=== PATIENT | female | born 1935 | race Caucasian/White ===

== ENCOUNTER → 2017-07-11 10:57 | Outpatient (CLI) | payer MEDICARE, SELFPAY ==
[2017-07-11 12:40] LABS: BUN 14 mg/dL (7-18); EST Glomerular Filtration Rate 86 mL/min (>60); Est Glom Filt Rate - Afr Amer 104 mL/min (>60)
== END ==
PROVIDERS: Family Provider Family Medicine; PCP Family Medicine; Visit Provider Family Medicine
DX: Z01.812 Encounter for preprocedural laboratory examination (principal); R51 Headache
CPT/HCPCS: 36415; 82565; 84520

== ENCOUNTER → 2017-07-20 17:32 | Outpatient (CLI) | payer MEDICARE, SELFPAY ==
--- NOTE | 2017-07-20 17:39 | CT_ITS ---
STUDY: CTA OF THE BRAIN REASON FOR EXAM: Female, 82 years old. Occasional night headaches. Possible aneurysm. RADIATION DOSAGE (If Supplied By Facility): CTDIvol = ( 26.65 ) mGy, DLP = ( 1140.17 ) mGycm TECHNIQUE: CT angiography was performed with a multi-detector CT scanner. Data acquisition was obtained from the skull base through the vertex following intravenous administration of 100 ml of Isovue 370. MIP images were reconstructed from the axial data set. Post-processing of the angiographic images was performed, with multiplanar reformation and 3D reconstruction. Individualized dose optimization techniques were used for this CT. COMPARISON: None. FINDINGS: Normal bilateral petrous carotid arteries. Normal right cavernous carotid artery with a normal supraclinoid bifurcation. Normal left cavernous carotid artery with a normal supraclinoid bifurcation. Normal right A1 segments of the anterior cerebral artery. Normal left A1 segments of the anterior cerebral artery. Normal intact anterior communicating artery (ACOM). Normal bilateral A2 segments of the anterior cerebral arteries. Normal right M1 and M2 segments of the middle cerebral arteries, with a normal M1 bifurcation. Normal left M1 and M2 segments of the middle cerebral arteries, with a normal M1 bifurcation. The posterior commuting arteries bilaterally are definitely identified. There is a relatively small left vertebral artery with a dominant right vertebral artery. Normal basilar artery with a normal basilar bifurcation. The visualized bilateral superior cerebellar (SCA) arteries are normal. There is no demonstrated definite aneurysm of the little traverse of [place] within the scope and limitation of this exam. There is no demonstrated acute abnormality of the visualized brain. CT/CTA Head W/WO Contrast IMPRESSION: No demonstrated stenotic lesion. No demonstrated definite aneurysm of the little traverse of [place]. Electronically Signed: Kian Leonard MD at 3:35 EST Tel , Service support ,
== END ==
PROVIDERS: Family Provider Family Medicine; PCP Family Medicine; Visit Provider Family Medicine
DX: G44.209 Tension-type headache, unspecified, not intractable (principal)
CPT/HCPCS: 70496; Q9967

== ENCOUNTER → 2017-08-24 14:21 | Outpatient (CLI) | payer MEDICARE, SELFPAY ==
[2017-08-24 14:32] LABS: Bacteria 0 SEEN /hpf (None Seen); Mucous, Urine 0 SEEN /hpf (<or=2+); Red Blood Cells-Urine 0 SEEN /hpf (0-5); Squamous Epithelial Cells - UA 0 SEEN /hpf (5-10); White Blood Cells 0 SEEN /hpf (0-5)
[2017-08-24 15:56] LABS: Color, Urine Yellow (Yellow); Glucose, Dipstick Normal (Normal); Ketone-Dipstick Negative (Negative); Leukocyte Esterase-Dipstick Negative /ul (Negative); Nitrite-Dipstick Negative (Negative); Occult Blood-Urine Negative /ul (Negative); Protein-Dipstick Negative (Negative); Urine Bilirubin Dipstick Negative (Negative); Urine Clarity Clear (Clear); Urine Urobilinogen Normal (Normal); Urine pH 6.5 (5.0 - 8.0)
== END ==
PROVIDERS: Family Provider Family Medicine; PCP Family Medicine; Visit Provider Family Medicine
DX: R35.0 Frequency of micturition (principal)
CPT/HCPCS: 81001; 87086; 87088

== ENCOUNTER → 2018-08-22 09:15 | Outpatient (CLI) | payer MEDICARE, SELFPAY ==
[2018-08-22 12:51] LABS: Absolute Lymphocyte Count 0.95 X10^3/ul (0.83-4.51); Absolute Neutrophil Count 2.5 X10^3/uL (2.0-7.7); Basophil# 0.01 X10^3/uL; Basophil% 0.3 % (0-1); Eosinophil# 0.06 X10^3/uL; Eosinophils% 1.6 % (0-5); Hematocrit 41.5 % (37-47); Hemoglobin 13.7 g/dl (12.0-15.0); Lymphocyte # 0.95 X10^3/ul (4.0); Lymphocyte % 24.5 % (19-41); Mean Corpuscular Hgb 29.8 pg (27.0-32.0); Mean Corpuscular Volume 90.4 fL (81-99); Mean Platelet Vol. 11.8 fl (6.2-12.0); Monocyte# 0.34 X10^3/uL; Monocyte% 8.8 % (0-10); Neutrophil % 64.5 % (47-70); POSITIVE COUNT NO; POSITIVE DIFFERENTIAL NO; POSITIVE MORPHOLOGY NO; Platelet Count 164 K/mm3 (150-450); RBC Distribution Width CV 14.1 % (11.6-14.6); RBC Distribution Width SD 46.3 fl (35.1-43.9); Red Blood Count 4.59 M/mm3 (4.2-5.4); White Blood Count 3.9 K/mm3 (4.4-11.0)
[2018-08-22 13:05] LABS: ALB/GLOB Ratio 1.3 RATIO (0.9-2.4); AST(SGOT) 29 U/L (15-37); Alanine Aminotransfer ALT/SGPT 30 U/L (13-56); Albumin, Serum 3.9 g/dL (3.2-5.0); Alkaline Phosphatase 91 U/L (45-117); Anion Gap 6 (5-15); BUN 12 mg/dL (7-18); BUN/Creat Ratio 16.9 RATIO (10-20); Calcium,Total 8.7 mg/dL (8.5-10.1); Chloride 105 mmol/L (98-107); Creatinine, Serum 0.71 mg/dL (0.55-1.02); EST Glomerular Filtration Rate 83 mL/min (>60); Est Glom Filt Rate - Afr Amer 101 mL/min (>60); Globulin 2.9 g/dL (2.2-4.2); Glucose 82 mg/dL (74-106); Potassium 3.7 mmol/L (3.5-5.1); Protein, Total 6.8 g/dL (6.4-8.2); Sodium Level 138 mmol/L (136-145); T4 Free Direct 0.98 ng/dL (0.76-1.46); Thyroid Stim Hormone (TSH) 2.87 uIU/mL (0.358-3.74)
[2018-08-22 13:08] LABS: Vitamin D,25 Hydroxy 70.2 ng/mL (29.95-100.01)
== END ==
PROVIDERS: Family Provider Family Medicine; PCP Family Medicine; Visit Provider Family Medicine
DX: E03.9 Hypothyroidism, unspecified (principal); E55.9 Vitamin D deficiency, unspecified; E78.5 Hyperlipidemia, unspecified; K90.0 Celiac disease
CPT/HCPCS: 36415; 80053; 82306; 84439; 84443; 85025

== ENCOUNTER → 2018-10-23 09:08 | Outpatient (CLI) | payer MEDICARE, SELFPAY ==
--- NOTE | 2018-10-23 09:11 | RAD_ITS ---
STUDY: X-RAY - ESOPHAGUS (BARIUM SWALLOW) WITH FLUOROSCOPY REASON FOR EXAM: Female, 83 years old. Hiatal hernia and reflux. TECHNIQUE: 14 view(s) of the esophagus were obtained following swallowing of barium. FLUOROSCOPY TIME (if supplied): (0:45) minutes/seconds COMPARISON: None. FINDINGS: There is no demonstrated esophageal foreign body. There is circumferential narrowing of the distal esophagus at the gastroesophageal junction. Normal gastroesophageal junction, without a demonstrated hiatal hernia. The patient ingested a 12 mm tablet of barium without any difficulty. Normal visualized aortic arch and descending thoracic aorta. Normal visualized pulmonary parenchyma. There are diffuse degenerative changes of the visualized thoracic spine. RAD/Esophagus Only IMPRESSION: Circumferential narrowing of the distal esophagus. No reflux. The patient ingested a 12 mm tablet of barium without any difficulty. Electronically Signed: Gregory Sy, at 10:12 EDT , Service support ,
== END ==
PROVIDERS: Family Provider Family Medicine; PCP Family Medicine; Referring Provider Internal Medicine Gastroenterology; Visit Provider Internal Medicine Gastroenterology
DX: R13.10 Dysphagia, unspecified (principal)
CPT/HCPCS: 74220

== ENCOUNTER → 2019-01-28 09:33 | Outpatient (CLI) | payer MEDICARE, SELFPAY ==
--- NOTE | 2019-01-28 09:48 | RAD_ITS ---
HISTORY: HISTORY: pt. fell, pain right 5th digit, as well as base of thumb XR Hand Min 3 Views COMPARISON: None FINDINGS: # of images incl. paperwork: 3 3 views of the right hand. Findings: Interphalangeal joint spaces are narrowed with some osteophytes. Disease is more severe at the distal interphalangeal joints than proximally. Arthritis at the trapezium first metacarpal joint is most severe with sclerosis osteophytes and lateral subluxation. An ulnar styloid nonunion fracture is old. Calcification of the triangle fibrocartilage complex indicates chronic disease. RAD/Hand Min 3 Views IMPRESSION: Osteoarthritis. at 0553 Reported and signed by: Abhi Rangel MD Electronically Signed: Abhi Rangel MD at 5:52 EDT Tel , Service support ,
== END ==
PROVIDERS: Family Provider Family Medicine; PCP Family Medicine; Referring Provider Family Medicine; Visit Provider Family Medicine
DX: S60.221A Contusion of right hand, initial encounter (principal); M19.041 Primary osteoarthritis, right hand
CPT/HCPCS: 73130

== ENCOUNTER → 2019-04-05 11:16 | Outpatient (CLI) | payer MEDICARE, SELFPAY | PROVIDERS: Family Provider Family Medicine; PCP Family Medicine; Visit Provider Family Medicine | DX: R32 Unspecified urinary incontinence (principal) | CPT/HCPCS: 87077; 87086; 87088; 87186 ==

== ENCOUNTER 2019-11-14 14:44 | Emergency (ER) | payer MEDICARE, SELFPAY ==
[2019-11-14 14:45] VITALS: BP 152/128; PULSE 94; RESP 16; TEMP 36.3; O2SAT 97; BMI 21.2
--- NOTE | 2019-11-14 15:36 | CT_ITS ---
STUDY: CT ABDOMEN AND PELVIS WITHOUT CONTRAST REASON FOR EXAM: Female, 84 years old. RUQ PAIN AFTER FALL RADIATION DOSAGE (If Supplied By Facility): CTDIvol = ( 18.885 ) mGy, DLP = ( 331.79 ) mGycm TECHNIQUE: Transaxial images were obtained from the dome of the diaphragm to the symphysis pubis without oral contrast, and without intravenous contrast. Sagittal and coronal images were reconstructed. Individualized dose optimization techniques were used for this CT. COMPARISON: May 03, 2012 FINDINGS: There is minimal bibasilar atelectasis and/or scarring. There are coronary artery calcifications present. There are grossly stable scattered low attenuation foci within the liver which may reflect cysts and/or hemangiomas. The gallbladder is contracted. Normal spleen. Normal pancreas. Normal bilateral adrenal glands. Normal right kidney. Normal left kidney. Normal visualized stomach. Normal small intestine. There are multiple colonic diverticula consistent with diverticulosis. The appendix is visualized and appears normal. There is diffuse atherosclerotic calcification of the abdominal aorta, without a demonstrated aneurysm. Normal inferior vena cava. Normal retroperitoneum. Normal urinary bladder. There is a round calcified focus within the uterus consistent with a calcified fibroid. Normal abdominal wall. There are diffuse degenerative changes of the visualized thoracic and lumbar spine. There is an anterior compression deformity of T12 that is likely chronic. There is a dextroscoliosis of the thoracolumbar spine. There is a left hip arthroplasty in place creating beam hardening artifact within the pelvis. CT/Abdomen/Pelvis W IV Cont ONLY IMPRESSION: No acute intra-abdominal process. Colonic diverticulosis. Atherosclerosis. Electronically Signed: Jocelynn Cortes MD at 18:07 EDT Tel , Service support ,
[2019-11-14] MEDS: Ondansetron 4 MG/2 ML Vial IV (15:54)
[2019-11-14 16:05] VITALS: O2SAT 96
--- NOTE | 2019-11-14 16:05 | RAD_ITS ---
STUDY: X-RAY CHEST REASON FOR EXAM: Female, 84 years old. RIGHT SIDED RIB PAIN AFTER FALL, HX OF HTN TECHNIQUE: Single frontal view of the chest. COMPARISON: November 14, 2014 FINDINGS: There is no focal consolidation. Normal size heart. Normal mediastinum and brain. Normal visualized pulmonary arteries. There is atherosclerotic calcification of the aortic arch with tortuosity. Normal visualized thoracic spine. Normal visualized ribs, clavicles, and shoulders. There is no demonstrated abnormality of the visualized soft tissue structures of the upper abdomen. RAD/Chest 1 View (Portable) IMPRESSION: No acute cardiopulmonary process. Electronically Signed: Jocelynn Cortes MD at 17:07 EDT Tel , Service support ,
[2019-11-14 17:08] VITALS: BP 172/103; PULSE 83; RESP 16; O2SAT 99
[2019-11-14 17:23] LABS: Absolute Lymphocyte Count 0.77 X10^3/uL (0.83-4.51); Absolute Neutrophil Count 10.5 X10^3/uL (2.0-7.7); Basophil# 0.01 X10^3/uL; Basophil% 0.1 % (0-1); Hematocrit 46.1 % (37-47); Hemoglobin 15.6 g/dL (12.0-15.0); Lymphocyte # 0.77 X10^3/ul (4.0); Lymphocyte % 6.4 % (19-41); Mean Corp Hgb Conc 33.8 g/dL (32-36); Mean Corpuscular Hgb 30.5 pg (27.0-32.0); Mean Corpuscular Volume 90.2 fL (81-99); Mean Platelet Vol. 11.9 fl (6.2-12.0); Monocyte# 0.77 X10^3/uL; Monocyte% 6.4 % (0-10); NRBC Flagged by Analyzer 0 % (0-5); Neutrophil # 10.47 X10^3/uL (2.7-7.7); Neutrophil % 86.4 % (47-70); POSITIVE MORPHOLOGY YES; Platelet Count 218 K/mm3 (150-450); RBC Distribution Width CV 13.1 % (11.6-14.6); RBC Distribution Width SD 43.4 fl (35.1-43.9); Red Blood Count 5.11 M/mm3 (4.2-5.4); White Blood Count 12.1 K/mm3 (4.4-11.0)
[2019-11-14 17:31] LABS: ALB/GLOB Ratio 1.2 RATIO (0.9-2.4); AST(SGOT) 37 U/L (15-37); Alanine Aminotransfer ALT/SGPT 33 U/L (13-56); Albumin, Serum 4.7 g/dL (3.2-5.0); Alkaline Phosphatase 104 U/L (45-117); Anion Gap 12 (5-15); BUN 24 mg/dL (7-18); BUN/Creat Ratio 27.7 RATIO (10-20); Calcium,Total 9.6 mg/dL (8.5-10.1); Chloride 89 mmol/L (98-107); Creatinine, Serum 0.87 mg/dL (0.55-1.02); EST Glomerular Filtration Rate 66 mL/min (>60); Est Glom Filt Rate - Afr Amer 80 mL/min (>60); Estimated Creatinine Clearance 37.39 ml/min; Globulin 3.9 g/dL (2.2-4.2); Glucose 148 mg/dL (74-106); Potassium 3.2 mmol/L (3.5-5.1); Protein, Total 8.6 g/dL (6.4-8.2); Sodium Level 127 mmol/L (136-145)
[2019-11-14 17:35] LABS: Differential Indicated SCAN CRITERIA MET
[2019-11-14 18:03] LABS: Platelet Estimate ADEQUATE (ADEQ)
[2019-11-14 18:04] LABS: Anisocytosis RARE; Macrocytosis RARE; Red Cell Morphology N CHROM NORMAL (NORM C&C)
--- NOTE | 2019-11-14 18:10 | ED.DCSUM_ITS ---
- ER Visit Summary Date of Service: 11/14/19 Chief Complaint: Fall History of Present Illness: The patient is a [address] Rios Irwin. She reports that 2 days ago she lost her balance and fell into a window on her son terrie. She reports that she hit her right upper abdomen. She has pain here this 10 out of 10 with movement 7 out of 10 at rest. She does report the pain makes it is slightly short of breath. She was nauseated initially and vomited 3 times. There is no blood in her emesis. She has not vomited since then. Patient denies any blow to the head or loss of consciousness. She is not on anticoagulants. She denies any shoulder, wrist, or hip pain. Physical Examination: Vitals: Stable. Afebrile. Neck: No vertebral tenderness. Full ROM without difficulty. Cleared by NEXUS criteria. Back: No vertebral tenderness. General: A&O x 3. NAD. Cardiovascular exam: Regular rate and rhythm, no murmur, rub or gallop. Respiratory exam: Chest nontender. No crepitus. Clear to auscultation bilaterally. No wheezes or stridor. No pain with anterior posterior lateral compression of her chest. Abdominal exam: Soft, mild tenderness palpation in the right upper quadrant, nondistended, normal bowel sounds. No peritoneal signs. Extremity: Atraumatic. No pain with range of motion. Test Results: CBC shows a white count of 12.1 with a hemoglobin of 15.6, stable neutrophils 86, lymphocytes of 6. Chem-7 shows a sodium 127, potassium 3.2, c hloride of 89, BUN of 24, glucose 148. LFTs show total protein of 8.6. Clinical Impression(s) from Imaging Studies Abdomen/Pelvis CT 11/14/19 15:36 IMPRESSION: No acute intra-abdominal process. Colonic diverticulosis. Atherosclerosis. Electronically Signed: Jocelynn Cortes MD at 18:07 EDT Tel , Service support , Chest X-Ray 11/14/19 16:05 IMPRESSION: No acute cardiopulmonary process. Electronically Signed: Jocelynn Cortes MD at 17:07 EDT Tel , Service support , Emergency Department Course and Treatment: Patient refused pain or nausea medications. She is resting comfortably. Treatment Plan: I had a prolonged discussion the patient about her sodium being low and her potassium being low. She is instructed on dietary changes to improve this. She refused pain medications for home. She is instructed to follow-up with her primary care physician in 2 days for another exam. Return to the emergency department for any worsening symptoms. Disposition: To home in improved and stable condition. Impression: 1. Fall. 2. Blunt abdominal trauma. 3. Hyponatremia, mild. 4. Mild hypokalemia. This note was generated with [employer] dictation software. It may contain incorrect words, spelling, and punctuation that were not noted in review of the chart prior to signing ED Disposition - Plan for ED Patient: Disposition: Home or Assisted Living Instructions: ED Hyponatremia Referrals: Rios Irwin MD [Primary Care Provider] - 2 Days
[2019-11-14 18:18] VITALS: BP 189/112; PULSE 79; RESP 18; O2SAT 99
[2019-11-15 11:06] LABS: Pathologist Review Reviewed
== END 2019-11-14 18:19 | disposition home or self-care (01) ==
PROVIDERS: Emergency Provider Emergency Medicine; PCP Family Medicine
DX: S39.91XA Unspecified injury of abdomen, initial encounter (principal); E87.1 Hypo-osmolality and hyponatremia; E87.6 Hypokalemia; W19.XXXA Unspecified fall, initial encounter
CPT/HCPCS: 71045; 74177; 80053; 85025; 96374; 99284; Q9967; A4216; J2405

== ENCOUNTER 2019-11-16 09:17 | Observation (INO) | payer MEDICARE, SELFPAY ==
[2019-11-16] VITALS (11 sets, daily range): BP systolic 135–166; BP diastolic 87–109; PULSE 75–95; RESP 16–18; TEMP 36.6–37.2; O2SAT 92–96; BMI 21.4; BMI 20.3
--- NOTE | 2019-11-16 09:35 | EKG12_ITS ---
Test Reason : Blood Pressure : / mmHG Vent. Rate : 085 BPM Atrial Rate : 085 BPM P-R Int : 168 ms QRS Dur : 080 ms QT Int : 396 ms P-R-T Axes : 012 -57 -76 degrees QTc Int : 471 ms Sinus rhythm with marked sinus arrhythmia Left axis deviation Inferior infarct , age undetermined, cannot be excluded Anteroseptal infarct , age undetermined, cannot be excluded Nonspecific ST & & T Wave Abnormality Abnormal ECG Confirmed by KATHRINE BROWN, VON ([id number]), telegraph editor ЕЛЕНА GO ([id number]) on 11/19/2019 10:56:35 AM Referred By: MARK/AJAY Confirmed By:VON CHISHOLM MD
--- NOTE | 2019-11-16 09:41 | RAD_ITS ---
STUDY: X-RAY CHEST REASON FOR EXAM: Female, 84 years old. ill x 3 days TECHNIQUE: Frontal view COMPARISON: November 14, 2019 FINDINGS: The lungs are clear and expanded. There is no demonstrated pleural abnormality. Cardiomegaly. Normal mediastinum and brain. Normal visualized pulmonary arteries. Normal visualized aortic arch and descending thoracic aorta. Scoliosis of the thoracic spine. Normal visualized ribs, clavicles, and shoulders. RAD/Chest PA and Lateral IMPRESSION: Cardiomegaly. Electronically Signed: Shawn Bolanos DO at 11:17 EDT Tel [phone], Service support ,
--- NOTE | 2019-11-16 09:43 | ED.DCSUM_ITS ---
History of Present Illness Informant: Patient Onset: Days - 4 days Context: Gradual Onset Timing: Continuous Quality: Generalized weakness Location: Generalized Current Severity: Severe Maximum Severity: Severe Worsened by: Activity Relieved by: Nothing Associated Symptoms: Nausea and vomiting 2 days ago one episode Narrative: 84-year-old female history of CVA hyperlipidemia and hypothyroidism presents to the emergency department with generalized weakness. Patient was actually seen here 2 days ago. At that time she had suffered a fall a few days before that was complaining of right-sided rib pain and abdominal pain and she had a work-up in the emergency department that showed mild hyponatremia and hypokalemia but the patient felt well after evaluation was discharged. Patient states that she has been at home since that time but is still felt tired and just generally weak and has had much less energy than normal for her. She has had nausea but no vomiting since she has been here 2 days ago. No diarrhea or constipation. Normal urination. No chest pain shortness of breath. She has a mild cough that she attributes to allergies. No fevers headache or neck pain. She is not lightheaded or dizzy. No syncope or near syncope. No leg pain or swelling. She has had somewhat less of an appetite but is still been drinking fluids. Prior similar symptoms: Yes Recent Illness/Hospitalization: No <Eitan Sandoval - Last Filed: 11/16/19 11:48> <Iris Keating - Last Filed: 11/16/19 23:21> Chief Complaint: Weakness Past Medical History Prior records reviewed: Yes Past Medical History: - - CVA hyperlipidemia and hypothyroidism Surgical History: no surgical history Lives: With Family Smoking Status: Never smoker Alcohol: None Drugs: None - Family History Maternal Family History: Reports: No pertinent history Paternal Family History: Reports: No pertinent history <Eitan Sandoval - Last Filed: 11/16/19 11:48> <Iris Keating - Last Filed: 11/16/19 23:21> - Allergies and Home Meds Allergies/Adverse Reactions: Allergies gluten Adverse Reaction (Verified 11/16/19 09:19) Nausea Review of Systems All systems negative except as indicated General: Reports: Malaise. Denies: Chills, Fever, Sweats Eyes: Denies: Visual changes - bilaterally, Diplopia ENT: Denies: Rhinorrhea, Sore throat Cardiovascular: Denies: Chest pain, Palpitations Respiratory: Denies: Dyspnea, Cough, Dyspnea on exertion Gastrointestinal: Denies: Abdominal pain, Nausea, Vomiting, Diarrhea, Melena, Hematochezia Genitourinary: Denies: Dysuria, Hematuria, Frequency Musculoskeletal: Denies: Back pain, Extremity Pain Skin: Denies: Rash, Wounds Neurological: Denies: Headache, Weakness, Numbness Psych: Denies: Depression, Anxiety, Suicidal thoughts, Suicidal ideations <Myra Sandovalony - Last Filed: 11/16/19 11:48> Physical Exam Vital Signs/Narrative: Vital Signs Temp Pulse Resp BP Pulse Ox 11/16/19 09:19 97.8 F 78 18 135/97 H 96 Inital Vital Signs reviewed: Yes General: Well nourished, Well developed, No Acute Distress Head: Normocephalic, Atraumatic. Negative for: Trauma, Tenderness Eyes: Perrl, EOMI ENT: Moist mucous membranes, No rhinorrhea Neck: Supple, Nontender Cardiovascular: Regular rate, Regular rhythm, No murmurs Respiratory: No distress, CTA bilaterally, Chest nontender Abdomen: Soft, Nontender, Nondistended, Normal bowel sounds, - - No signs of trauma on the chest or abdomen flanks or on the back. Back: Nontender, Normal Inspection. Negative for: CVA tenderness, Spinal tenderness Extremities: Nontender, No edema. Negative for: Tenderness, Edema, Calf Tenderness Skin: Normal color, No rash Neurological: Alert, Oriented x3, Cranial nerves II-XII grossly intact, Normal Strength, Normal Sensation, Normal Gait Psychological: Normal affect, Normal Mood <Eitan Sandoval - Last Filed: 11/16/19 11:48> Diagnostic/Tx/Re-eval Chest X-Ray - ED: 2 View, Read by ED Physician, Read by Radiologist, No Acute Disease, Cardiomegaly - Rhythm Strip Rhythm Strip: Sinus Rhythm Rate: 85 Ectopy: None - EKG Initial EKG Interpretation: Sinus Rhythm, Inverted T-Waves, Non-Specific ST Changes Prior: Changed - Medical Decision Making On arrival vital signs are stable but EKG shows nonspecific ST changes and T wave inversions in the lateral leads which are changed from her EKG from November 142014. Laboratory work-up consistent with hyponatremia sodium 128, troponin was 0.02, rest of labs unremarkable. Chest x-ray unremarkable as well. Patient is hemodynamically stable. Patient chest pain-free. Patient has not had cardiac work-up in more than 5 years. She has new EKG changes. She is generally weak dehydrated and hyponatremic. Will admit for further treatment and work-up. <Eitan Sandoval - Last Filed: 11/16/19 11:48> - Medical Decision Making I have personally performed a face to face assessment of the patient and have reviewed the [facility] [employer]ER/PA note. My ivory findings include: 84 year old female presenting with generalized weakness and fatigue. Recently evaluated after fall. EKG shows lateral T wave inversion, changed from 2015. Chemistries remarkable for hyponatremia. She is chest pain free in the ED. Will admit for observation. <Iris Keating - Last Filed: 11/16/19 23:21> ED Disposition <Eitan Sandoval - Last Filed: 11/16/19 11:48> <Iris Keating - Last Filed: 11/16/19 23:21> - Plan for ED Patient: Disposition: Acute Care [facility] Diagnosis: Acute electrocardiogram changes, Dehydration, Hyponatremia, Troponin I above reference range
[2019-11-16] MEDS: 0.9% Normal Saline 1,000 ML 999 ML IV (09:49)
[2019-11-16 10:02] LABS: Absolute Lymphocyte Count 1.03 X10^3/uL (0.83-4.51); Absolute Neutrophil Count 7.7 X10^3/uL (2.0-7.7); Basophil# 0.01 X10^3/uL; Basophil% 0.1 % (0-1); Eosinophil# 0.01 X10^3/uL; Eosinophils% 0.1 % (0-5); Hematocrit 45.1 % (37-47); Hemoglobin 15.2 g/dL (12.0-15.0); Lymphocyte # 1.03 X10^3/ul (4.0); Lymphocyte % 10.4 % (19-41); Mean Corp Hgb Conc 33.7 g/dL (32-36); Mean Corpuscular Hgb 30.6 pg (27.0-32.0); Mean Corpuscular Volume 90.7 fL (81-99); Mean Platelet Vol. 10.7 fl (6.2-12.0); Monocyte# 0.96 X10^3/uL; Monocyte% 9.7 % (0-10); NRBC Flagged by Analyzer 0 % (0-5); Neutrophil # 7.74 X10^3/uL (2.7-7.7); Neutrophil % 78.6 % (47-70); Platelet Count 197 K/mm3 (150-450); RBC Distribution Width CV 13.2 % (11.6-14.6); RBC Distribution Width SD 43.4 fl (35.1-43.9); Red Blood Count 4.97 M/mm3 (4.2-5.4); White Blood Count 9.9 K/mm3 (4.4-11.0)
[2019-11-16 10:27] LABS: ALB/GLOB Ratio 1.1 RATIO (0.9-2.4); AST(SGOT) 53 U/L (15-37); Alanine Aminotransfer ALT/SGPT 43 U/L (13-56); Albumin, Serum 3.9 g/dL (3.2-5.0); Alkaline Phosphatase 93 U/L (45-117); Anion Gap 10 (5-15); BUN 21 mg/dL (7-18); BUN/Creat Ratio 23.9 RATIO (10-20); Calcium,Total 9.1 mg/dL (8.5-10.1); Chloride 89 mmol/L (98-107); Creatinine, Serum 0.88 mg/dL (0.55-1.02); EST Glomerular Filtration Rate 65 mL/min (>60); Est Glom Filt Rate - Afr Amer 79 mL/min (>60); Estimated Creatinine Clearance 35.27 ml/min; Globulin 3.6 g/dL (2.2-4.2); Glucose 112 mg/dL (74-106); Potassium 3.8 mmol/L (3.5-5.1); Protein, Total 7.5 g/dL (6.4-8.2); Sodium Level 128 mmol/L (136-145)
[2019-11-16 11:00] LABS: Mucous, Urine 0 SEEN /hpf (<or=2+); Red Blood Cells-Urine 0 SEEN /hpf (0-5); Squamous Epithelial Cells - UA 0 SEEN /hpf (5-10)
[2019-11-16 11:09] LABS: Color, Urine Yellow (Yellow); Glucose, Dipstick Normal (Normal); Ketone-Dipstick Negative (Negative); Leukocyte Esterase-Dipstick Negative /ul (Negative); Nitrite-Dipstick Negative (Negative); Occult Blood-Urine 25 /ul (Negative); Protein-Dipstick 100 mg/dl (Negative); Urine Bilirubin Dipstick Negative (Negative); Urine Clarity Clear (Clear); Urine Urobilinogen Normal (Normal); Urine pH 6.5 (5.0 - 8.0)
[2019-11-16 11:16] LABS: Bacteria 1+ /hpf (None Seen); White Blood Cells 0-5 SEEN /hpf (0-5)
--- NOTE | 2019-11-16 11:56 | HP.PCM_ITS ---
Problem List (1) Hypothyroidism Status: Chronic (2) Acute electrocardiogram changes Status: Acute (3) Hyponatremia Status: Acute (4) Hyperlipidemia Status: Chronic (5) Depression Status: Chronic History of Present Illness Date of Admission: 11/16/19 Chief Complaint: Weakness, dizziness, nausea. The patient is a 84 year old F with past medical history as mentioned above presented to the emergency room because of multiple complaints including dizziness, weakness and nausea. According to the patient, her symptoms has been going on for almost a week, mainly generalized weakness, associated with dizziness and difficulty ambulating as well as persistent nausea for the last 4 days with occasional vomiting and without other associated symptoms. She did mention that she has a very poor appetite and over the last several days, she has not been drinking or eating well. She complained of nausea that has been going on for 4 days, had vomiting for couple of times for 1 day but then remained early nausea without vomiting. She denied abdominal pain, fever, chills, diarrhea or constipation. She denied urinary symptoms. Today, she felt very weak and tired, dizzy and she was not able to get up. Her mentioned that she was walking and she just went down because she was very weak but she did not lose any consciousness. Patient denied chest pain, shortness of breath, or syncope. She denied cough or sputum production. She denied palpitation. Patient mentioned that she had a fall 2 weeks ago on the right side of her chest and she has been having chest pain on the right side since then which has been getting worse with taking a deep breath. In the emergency department, her blood pressure was slight elevated, other vital signs were stable. Her routine blood work was remarkable for hemoglobin of 15.2 g/dL indicating hemoconcentration and sodium of 128, BUN was 21 but her creatinine was normal. LFT was unremarkable. EKG revealed normal sinus rhythm, T wave inversion in leads V3, V4, V5 and V6 and those changes are new compared to EKG from October,, no evidence of acute ischemic changes. Troponin was 0.026. Chest x-ray revealed mild cardiomegaly, no acute findings. She is being admitted for hyponatremia likely due to dehydration, abnormal EKG and qu estionable near syncope. Past Medical History Past Medical History (Chronic Problems): Chronic Problems Hypothyroidism (Chronic) Hyperlipidemia (Chronic) Depression (Chronic) Allergies gluten Adverse Reaction (Verified 11/16/19 09:19) Nausea Home Medications: Ambulatory Orders Medication Instructions Recorded Clonazepam [Klonopin] 0.25 mg PO TID PRN PRN 11/14/14 Levothyroxine [Synthroid] 50 mcg PO DAILY 11/14/14 proMETHazine tablet [Phenergan 12.5 mg PO Q8H PRN PRN 11/14/14 tablet] Cholecalciferol (Vitamin D3) 5,000 unit PO DAILY 12/01/16 [Vitamin D3] Escitalopram Oxalate 20 mg PO DAILY 11/14/19 Surgical History: total hip arthroplasty Psychiatric History: Anxiety, Depression 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 Denies: Chills, Fever Eyes: Denies: Blurred vision, Double vision, Drainage, Vision Change HEENT: Denies: Difficulty Hearing, Ear Pain, Eye Pain, Nasal Congestion, Sore Throat Cardiovascular: Reports: Light Headedness. Denies: Chest Pain, Chest Pressure, Chest Tightness, Heaviness, Paroxysmal Noc. Dyspnea, Syncope Respiratory: Denies: Cough, Pleuritic Pain, Shortness of Breath, Sputum production, Wheezing Gastrointestinal: Reports: Nausea, Vomiting. Denies: Abdominal Pain, Constipation, Diarrhea Genitourinary: Denies: Dysuria, Frequency, Hematuria Musculoskeletal: Denies: Arm Pain, Back Pain, Foot Pain Skin: Denies: Dryness, Rash Neurological: Denies: Balance problems, Double vision, Change in Speech, Slurred speech, Confusion, Headaches, Incoordination Psychiatric: Reports: Anxiety, Depression Endocrine: Denies: Change in Body Habitus, Polydipsia, Polyuria VTE Information - Inpt Only VTE Present on Admission: No VTE Mechan Device Prophylaxis: None VTE Pharm Prophylaxis ordered?: Yes Patient Problems: Active and Suspected Problems Acute electrocardiogram changes (Acute) Hyponatremia (Acute) - Physical Exam Vitals/I&O's: Vital Signs Temp Pulse Resp BP Pulse Ox 98.1 F 78 16 142/87 H 95 11/16/19 11:17 11/16/19 11:17 11/16/19 11:17 11/16/19 11:17 11/16/19 11:17 Oxygen Delivery Method Room Air Weight: 113 lb 8.609 oz Body Mass Index (BMI) 21.4 Finger Stick Blood Glucose 115 Intake and Output for Last 24 Hours 11/14/19 11/15/19 11/16/19 23:59 23:59 23:59 Intake Total 1000 / 1000 Balance 1000 / 1000 General: Alert, Oriented x3, Cooperative, No apparent distress HEENT: Atraumatic, PERRLA, EOMI, Normocephalic Oral: Moist Mucosa, No Gingival or Mucosal Lesions/ Ulcerations Neck: Supple, No JVD, Negative Carotid Bruits, Trachea Midline, Thyroid Normal Size and Texture Lungs: Clear to auscultation, Normal air movement, No rhonchi, No wheeze, No rales, Diminished Cardiovascular: Regular rate, Regular Rhythm, Normal S1, Normal S2, PMI Normal Abdomen: Bowel Sounds Present, Soft, Non Tender, Non-Distended, No Hepato- splenomegaly Extremities: No clubbing, No cyanosis, No edema Skin: No rashes, No breakdown Lymphatic: No Cervical, Supraclavicular, or Inguinal Adenopathy Neurological: Cranial nerves II-XII grossly intact, Motor Exam 5/5 strength throughout Psych/Mental Status: Normal Affect, Appropriate, Alert and oriented to time, place, person, mood and affect Laboratory Results 11/16/19 09:50: WBC 9.9, RBC 4.97, Hgb 15.2 H, Hct 45.1, MCV 90.7, MCH 30.6, MCHC 33.7, RDW Std Deviation 43.4, RDW Coeff of Aida 13.2, Plt Count 197, MPV 10.7, Immature Gran % (Auto) 1.100 H, Neut % (Auto) 78.6 H, Lymph % (Auto) 10.4 L, [place] % (Auto) 9.7, Eos % (Auto) 0.1, Baso % (Auto) 0.1, Absolute Neuts (auto) 7.7, Absolute Lymphs (auto) 1.03, Nucleated RBC % 0 11/16/19 09:50: Sodium 128 L, Potassium 3.8, Chloride 89 L, Carbon Dioxide 29.0, Anion Gap 10, BUN 21 H, Creatinine 0.88, Estim Creat Clear Calc 35.27, Est GFR (MDRD) Af Amer 79, Est GFR (MDRD) Non-Af 65, BUN/Creatinine Ratio 23.9 H, Glucose 112 H, Calcium 9.1, Total Bilirubin 1.20 H, AST 53 H, ALT 43, Alkaline Phosphatase 93, Total Protein 7.5, Albumin 3.9, Globulin 3.6, Albumin/Globulin Ratio 1.1 11/16/19 09:50: Troponin I 0.026 11/16/19 10:50: Urine Color Yellow, Urine Clarity Clear, Urine pH 6.5, Ur Specific [place] 1.010, Urine Protein 100 H, Urine Glucose (UA) Normal, Urine Ketones Negative, Urine Occult Blood 25 H, Urine Nitrite Negative, Urine Bilirubin Negative, Urine Urobilinogen Normal, Ur Leukocyte Esterase Negative, Urine RBC 0 SEEN, Urine WBC 0-5 SEEN, Ur Squamous Epith Cells 0 SEEN, Urine Bacteria 1+, Urine Mucus 0 SEEN Clinical Impression(s) from Imaging Studies Chest X-Ray 11/16/19 09:41 IMPRESSION: Cardiomegaly. Electronically Signed: Shawn Bolanos DO at 11:17 EDT Tel [phone], Service support , Assessment/Plan All Active Problems Acute electrocardiogram changes (Acute) Hyponatremia (Acute) This is an 84 years old female patient presented to the emergency room because of weakness, dizziness, nausea and she was found to have hyponatremia and seemed to be due to dehydration, hypovolemic, also found to have EKG changes which is not clear if it is acute or chronic and she is being admitted for evaluation and treatment. #1 hyponatremia: Seems to be due to hypovolemic hyponatremia. Patient has a poor appetite, clinically dehydrated, she does have hemoconcentration. She is not on any medication that can cause hyponatremia. Plan: Admit to PCU observation, cardiac monitoring, IV fluids with normal saline, check urine sodium, urine chloride, urine creatinine, serum and plasma osmolality, TSH, repeat CBC and CMP tomorrow morning, x-ray of the right ribs to rule out rib fractures, orthostatic vitals tomorrow morning PT OT evaluation and treatment. #2 abnormal EKG: EKG reviewed, revealed T wave inversion in leads V3, V4, V5 and V6 and those are new changes compared to EKG from 2015, no EKG in between. Patient denied any chest pain. She has no cardiac history. Troponin is normal. Plan: Cardiac monitoring, serial cardiac enzymes, 2D echocardiogram, repeat EKG tomorrow morning. #3 questionable near syncopal episode: Likely due to vasovagal secondary to dehydration. Plan as above, IV fluids, monitoring, orthostatic vitals tomorrow morning. #4 hypothyroidism: We will check TSH, continue levothyroxine. #5 depression/anxiety: Stable, continue Klonopin and escitalopram. #6 hyperlipidemia: Currently not on statins. #7 DVT prophylaxis, subcu Lovenox. This note was generated with [employer] dictation software. It may contain incorrect words, spelling, and punctuation that were not noted in checking the note before signing. OBSV E&M: 80359 Initial observation care L3
--- NOTE | 2019-11-16 12:56 | RAD_ITS ---
HISTORY: Fall. Right lateral chest pain. 2 views of the lateral ribs. Findings: Shoulder arthritis. Scoliosis. Atherosclerotic plaque within the aorta. Pulmonary hypoexpansion. 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 Tortuosity descending thoracic aorta. Slight diminished bone mineral density. No pulmonary contusion. No pneumothorax. No displaced rib fracture perceived. RAD/Ribs Unil 2V No CXR IMPRESSION: No rib fracture. at 0209 Reported and signed by: Abhi Rangel MD Electronically Signed: Abhi Rangel MD at 2:08 EDT Tel , Service support ,
--- NOTE | 2019-11-16 12:56 | ECHOD_ITS ---
Reason For Study: ABNORMAL EKG Procedure This was a 2D Doppler, Color Flow transthoracic echocardiogram. Exam performed portable in patient room. Left Ventricle Normal LV size. Left ventricular systolic function is normal. The estimated ejection fraction is 65 %. Stage 1 diastolic dysfunction. No regional wall motion abnormalities noted. Right Ventricle Normal RV size. Normal systolic function. Atria Normal left atrium. Normal right atrium. Mitral Valve Mild mitral valve prolapse. Mild (1+) eccentric mitral valve insufficiency. Tricuspid Valve Mild (1+) tricuspid valve insufficiency. Pulmonary artery systolic pressure is 28 mmHg. Aortic Valve Trisinus/trileaflet aortic valve. Mild diffuse aortic valve thickening. Mild (1+) eccentric aortic valve insufficiency. Pericardium/Pleural No pericardial effusion. MMode/2D Measurements & Calculations LVIDd: 3.8 cm IVSd: 1.2 cm Ao root diam: 3.2 cm LVIDs: 2.4 cm LVPWd: 1.3 cm RVDd: 2.4 cm FS: 36.6 % LAV(MOD-bp): 41.5 ml SV(MOD-sp4): 35.7 ml LVAd ap4: 21.2 cm2 LAV(MOD-bp) Indexed: 28.7 ml/m2 EDV(MOD-sp4): 55.4 ml LAV(MOD-sp2): 53.5 ml EDV(sp4-el): 58.0 ml LAV(MOD-sp4): 31.1 ml LVAs ap4: 11.8 cm2 ESV(MOD-sp4): 19.7 ml ESV(sp4-el): 20.5 ml EF(MOD-sp4): 64.5 % EF(sp4-el): 64.6 % SV(sp4-el): 37.5 ml LA dimension(2D): 3.7 cm LA A4 area: 13.5 cm2 RA A4 area: 11.5 cm2 Time Measurements MV dec time: 0.19 sec Doppler Measurements & Calculations MV E max genaro: 48.6 cm/sec Lat Peak E' Genaro: 4.0 cm/sec Med Peak E' Genaro: 5.0 cm/sec MV A max genaro: 79.9 cm/sec E/E' lat: 12.2 E/E' med: 9.8 MV E/A: 0.61 Ao V2 max: 142.3 cm/sec AI max genaro: 384.7 cm/sec LV V1 max: 133.0 cm/sec Ao max P.1 mmHg AI max P.2 mmHg LV V1 max P.1 mmHg AI dec slope: 210.4 cm/sec2 AI P1/2t: 535.6 msec PA V2 max: 133.9 cm/sec TR max genaro: 244.9 cm/sec PI dec slope: 130.0 cm/sec2 TR max P.1 mmHg Interpretation Summary Normal LV size. Left ventricular systolic function is normal. The estimated ejection fraction is 65 %. Stage 1 diastolic dysfunction. Mild (1+) eccentric mitral valve insufficiency. Pulmonary artery systolic pressure is 28 mmHg. Mild (1+) eccentric aortic valve insufficiency. Mild mitral valve prolapse. Compared to prior study, there is no significant change. Ordering Physician: Jose Gaston Referring Physician: EVERARDO EISENBERG Performed By: Katia Joseph RDCS
[2019-11-16 13:41] LABS: Osmolality, Serum 270 mOsm/KG (280-301)
[2019-11-16 14:00] LABS: Magnesium 1.9 mg/dL (1.6-2.6); Thyroid Stim Hormone (TSH) 4.87 uIU/mL (0.358-3.74)
[2019-11-16] MEDS: 0.9% Normal Saline 1,000 ML 75 ML IV (14:04)
[2019-11-16] MEDS: Escitalopram Oxalate 20 MG Tablet PO (14:05)
[2019-11-16] MEDS: Acetaminophen 325 MG Tablet 650 MG PO ×2 (14:05→23:05)
[2019-11-16] MEDS: Enoxaparin 40 MG/0.4 ML Syringe 30 MG SC (14:08)
[2019-11-16] MEDS: clonazePAM 0.5 MG Tablet 0.25 MG PO (23:05)
[2019-11-17] VITALS (11 sets, daily range): BP systolic 139–160; BP diastolic 89–113; PULSE 73–91; RESP 14–16; TEMP 36.7–36.9; O2SAT 94–96
[2019-11-17 01:02] LABS: Urine Chloride 70 mmol/L (Not Establ.); Urine Sodium 66 mmol/L (Not Establ.)
[2019-11-17 03:07] LABS: Osmolality, Urine 299 mOsm/KG
[2019-11-17] MEDS: 0.9% Normal Saline 1,000 ML 75 ML IV (03:15)
--- NOTE | 2019-11-17 05:55 | EKG12_ITS ---
Test Reason : AM Blood Pressure : / mmHG Vent. Rate : 078 BPM Atrial Rate : 078 BPM P-R Int : 166 ms QRS Dur : 078 ms QT Int : 380 ms P-R-T Axes : 027 -62 -04 degrees QTc Int : 433 ms Sinus rhythm with Premature atrial complexes Left axis deviation Septal infarct , age undetermined Inferior infarct , age undetermined ST & T wave abnormality, consider anterolateral ischemia Abnormal ECG Confirmed by SHIN LUONG ([id number]), slot editor ЕЛЕНА GO ([id number]) on 11/21/2019 12:10:36 PM Referred By: MIRIAM Confirmed By:SHIN LUONG
[2019-11-17] MEDS: Levothyroxine 50 MCG Tablet PO (06:17)
[2019-11-17 06:39] LABS: Absolute Lymphocyte Count 0.88 X10^3/uL (0.83-4.51); Absolute Neutrophil Count 5.5 X10^3/uL (2.0-7.7); Basophil# 0.01 X10^3/uL; Basophil% 0.1 % (0-1); Hematocrit 42.5 % (37-47); Hemoglobin 14.3 g/dL (12.0-15.0); Lymphocyte # 0.88 X10^3/ul (4.0); Lymphocyte % 12.3 % (19-41); Mean Corp Hgb Conc 33.6 g/dL (32-36); Mean Corpuscular Hgb 30.4 pg (27.0-32.0); Mean Corpuscular Volume 90.2 fL (81-99); Mean Platelet Vol. 11.4 fl (6.2-12.0); Monocyte# 0.75 X10^3/uL; Monocyte% 10.5 % (0-10); NRBC Flagged by Analyzer 0 % (0-5); Neutrophil # 5.47 X10^3/uL (2.7-7.7); Neutrophil % 76.3 % (47-70); Platelet Count 179 K/mm3 (150-450); RBC Distribution Width CV 13.1 % (11.6-14.6); RBC Distribution Width SD 42.6 fl (35.1-43.9); Red Blood Count 4.71 M/mm3 (4.2-5.4); White Blood Count 7.2 K/mm3 (4.4-11.0)
[2019-11-17 06:55] LABS: ALB/GLOB Ratio 1.1 RATIO (0.9-2.4); AST(SGOT) 32 U/L (15-37); Alanine Aminotransfer ALT/SGPT 39 U/L (13-56); Albumin, Serum 3.4 g/dL (3.2-5.0); Alkaline Phosphatase 85 U/L (45-117); Anion Gap 6 (5-15); BUN 10 mg/dL (7-18); BUN/Creat Ratio 22.7 RATIO (10-20); Calcium,Total 8.1 mg/dL (8.5-10.1); Chloride 98 mmol/L (98-107); Creatinine, Serum 0.44 mg/dL (0.55-1.02); EST Glomerular Filtration Rate 144 mL/min (>60); Est Glom Filt Rate - Afr Amer 174 mL/min (>60); Estimated Creatinine Clearance 31.04 ml/min; Globulin 3.1 g/dL (2.2-4.2); Glucose 92 mg/dL (74-106); Potassium 2.9 mmol/L (3.5-5.1); Protein, Total 6.5 g/dL (6.4-8.2); Sodium Level 130 mmol/L (136-145)
[2019-11-17 07:45] LABS: Free T3 1.8 pg/mL (2.18-3.98); T4 Free Direct 1.12 ng/dL (0.76-1.46)
[2019-11-17] MEDS: Escitalopram Oxalate 20 MG Tablet PO (08:01)
[2019-11-17] MEDS: Enoxaparin 40 MG/0.4 ML Syringe 30 MG SC (08:04)
--- NOTE | 2019-11-17 09:06 | PN_ITS ---
Patient Problems: Active and Suspected Problems Acute electrocardiogram changes (Acute) Hyponatremia (Acute) Subjective: Chief complaint: Follow-up after admission for hyponatremia, abnormal EKG and questionable near syncopal episode as well as elevated blood pressure. Patient seen and examined. No acute events overnight. This morning, she is feeling better, weakness improved. Nausea improved as well. She denied any more dizziness or lightheadedness. She denied chest pain or shortness of breath. Her blood pressure has been elevated, systolic up to 160s. Other vital signs are stable. - Physical Exam Vitals/I&O's: Vital Signs Temp Pulse Resp BP Pulse Ox 98.3 F 77 14 160/113 H 94 11/17/19 03:17 11/17/19 06:47 11/17/19 03:17 11/17/19 06:03 11/17/19 07:09 Oxygen Delivery Method Room Air Weight: 107 lb 4.8 oz Body Mass Index (BMI) 21.4 Finger Stick Blood Glucose 115 Orthostatic Vital Signs Start: 11/17/19 06:03 Freq: q24h Status: Active Protocol: Activity Type Activity Date Activity User E-Sign Co-Sign Detail Recorded Client Recorded Date Recorded By Document 11/17/19 06:03 AE [id number] 11/17/19 06:16 AE 11/17/19 06:03 Orthostatic Vitals Standing -Extremity Use Right Arm Sitting -Blood Pressure (90/60-120/80) 159/112 H -Extremity Use Right Arm -Pulse Rate (60-100) 80 Lying -Blood Pressure (90/60-120/80) 160/113 H -Extremity Use Right Arm -Pulse Rate (60-100) 73 Intake and Output for Last 24 Hours 11/15/19 11/16/19 11/17/19 23:59 23:59 23:59 Intake Total 1743.75 / 1743.75 545 / 545 Output Total 300 / 300 Balance 1443.75 / 1443.75 545 / 545 General: Alert, Oriented x3, Cooperative, No apparent distress HEENT: Atraumatic, PERRLA, EOMI, Normocephalic Oral: Moist Mucosa, No Gingival or Mucosal Lesions/ Ulcerations Neck: Supple, No JVD, Negative Carotid Bruits, Trachea Midline, Thyroid Normal Size and Texture Lungs: Clear to auscultation, Normal air movement, No rhonchi, No wheeze, No rales, Diminished Cardiovascular: Regular rate, Regular Rhythm, Normal S1, Normal S2, PMI Normal Abdomen: Bowel Sounds Present, Soft, Non Tender, Non-Distended, No Hepato- splenomegaly Extremities: No clubbing, No cyanosis, No edema Skin: No rashes, No breakdown Lymphatic: No Cervical, Supraclavicular, or Inguinal Adenopathy Neurological: Cranial nerves II-XII grossly intact, Neuro grossly intact Psych/Mental Status: Normal Affect, Appropriate, Alert and oriented to time, place, person, mood and affect Laboratory Results 11/16/19 09:50: WBC 9.9, RBC 4.97, Hgb 15.2 H, Hct 45.1, MCV 90.7, MCH 30.6, MCHC 33.7, RDW Std Deviation 43.4, RDW Coeff of Aida 13.2, Plt Count 197, MPV 10.7, Immature Gran % (Auto) 1.100 H, Neut % (Auto) 78.6 H, Lymph % (Auto) 10.4 L, [place] % (Auto) 9.7, Eos % (Auto) 0.1, Baso % (Auto) 0.1, Absolute Neuts (auto) 7.7, Absolute Lymphs (auto) 1.03, Nucleated RBC % 0 11/16/19 09:50: Sodium 128 L, Potassium 3.8, Chloride 89 L, Carbon Dioxide 29.0, Anion Gap 10, BUN 21 H, Creatinine 0.88, Estim Creat Clear Calc 35.27, Est GFR (MDRD) Af Amer 79, Est GFR (MDRD) Non-Af 65, BUN/Creatinine Ratio 23.9 H, Glucos e 112 H, Calcium 9.1, Total Bilirubin 1.20 H, AST 53 H, ALT 43, Alkaline Phosphatase 93, Total Protein 7.5, Albumin 3.9, Globulin 3.6, Albumin/Globulin Ratio 1.1 11/16/19 09:50: Troponin I 0.026 11/16/19 09:50: Magnesium 1.9, TSH 4.87 H 11/16/19 10:50: Urine Color Yellow, Urine Clarity Clear, Urine pH 6.5, Ur Specific [place] 1.010, Urine Protein 100 H, Urine Glucose (UA) Normal, Urine Ketones Negative, Urine Occult Blood 25 H, Urine Nitrite Negative, Urine Bilirubin Negative, Urine Urobilinogen Normal, Ur Leukocyte Esterase Negative, Urine RBC 0 SEEN, Urine WBC 0-5 SEEN, Ur Squamous Epith Cells 0 SEEN, Urine Bacteria 1+, Urine Mucus 0 SEEN 11/16/19 13:23: Serum Osmolality 270 L 11/16/19 13:23: Troponin I 0.029 11/16/19 16:02: Troponin I 0.025 11/16/19 23:30: Urine Osmolality 299 11/16/19 23:30: Ur Random Sodium 66, Urine Creatinine 25.80, Urine Chloride 70 11/17/19 05:10: WBC 7.2, RBC 4.71, Hgb 14.3, Hct 42.5, MCV 90.2, MCH 30.4, MCHC 33.6, RDW Std Deviation 42.6, RDW Coeff of Aida 13.1, Plt Count 179, MPV 11.4, Immature Gran % (Auto) 0.800, Neut % (Auto) 76.3 H, Lymph % (Auto) 12.3 L, [place] % (Auto) 10.5 H, Eos % (Auto) 0.0, Baso % (Auto) 0.1, Absolute Neuts (auto) 5.5, Absolute Lymphs (auto) 0.88, Nucleated RBC % 0 11/17/19 05:10: Sodium 130 L, Potassium 2.9 L, Chloride 98, Carbon Dioxide 26.0, Anion Gap 6, BUN 10, Creatinine 0.44 L, Estim Creat Clear Calc 31.04, Est GFR (MDRD) Af Amer 174, Est GFR (MDRD) Non-Af 144, BUN/Creatinine Ratio 22.7 H, Glucose 92, Calcium 8.1 L, Total Bilirubin 0.90, AST 32, ALT 39, Alkaline Phosphatase 85, Total Protein 6.5, Albumin 3.4, Globulin 3.1, Albumin/Globulin Ratio 1.1 11/17/19 06:30: Free T4 1.12, Thyroxine (T4) 9.0, Free T3 pg/dL 1.8 L 11/17/19 08:00: Cortisol Pending 11/17/19 08:00: Renin Pending, Aldosterone Pending Current Medications Acetaminophen (Tylenol) 650 mg PO Q6H PRN PRN PRN Reason: Pain Score 1-10/Temp > 100.7 F Last Admin: 11/16/19 23:05 Dose: 650 mg Documented by: Amlodipine Besylate (Norvasc) 5 mg PO DAILY [facility] Clonazepam (Klonopin) 0.25 mg PO TID PRN PRN PRN Reason: SLEEP Last Admin: 11/16/19 23:05 Dose: 0.25 mg Documented by: Enoxaparin Sodium (Lovenox) 30 mg SC DAILY [facility] Last Admin: 11/17/19 08:04 Dose: 30 mg Documented by: Escitalopram Oxalate (Lexapro) 20 mg PO DAILY [facility] Last Admin: 11/17/19 08:01 Dose: 20 mg Documented by: Hydralazine HCl (Apresoline Iv) 10 mg IV Q8H PRN PRN PRN Reason: for SBP>160 Levothyroxine Sodium (Synthroid) 50 mcg PO DAILY@0600 [facility] Last Admin: 11/17/19 06:17 Dose: 50 mcg Documented by: Ondansetron HCl (Zofran) 4 mg IV Q8H PRN PRN PRN Reason: NAUSEA/VOMITING Oxycodone HCl (Oxyir) 5 mg PO Q6H PRN PRN PRN Reason: Pain Score 6-10/10 Senna/Docusate Sodium (Senokot-S, Kelly-Colace) 2 tablet PO BID PRN PRN PRN Reason: Constipation Sodium Chloride () 10 - 40 ml IV UD PRN PRN Reason: SALINE FLUSH Zolpidem Tartrate (Ambien (Generic)) 5 mg PO QHS PRN PRN PRN Reason: INSOMNIA Medical Necessity - Tobacco Use Smoking Status: Never smoker Assessment/Plan All Active Problems Acute electrocardiogram changes (Acute) Hyponatremia (Acute) This is an 84 years old female patient presented to the emergency room because of weakness, dizziness, nausea and she was found to have hyponatremia and seemed to be due to dehydration, hypovolemic, also found to have EKG changes which is not clear if it is acute or chronic and she is being admitted for evaluation and treatment. #1 hyponatremia: Seems to be hypovolemic hyponatremia. Urine sodium and urine osmolality are highly elevated. she is on IV fluids with normal saline. Today sodium is 130, improving. Potassium also coming down at 2.9. TSH was slightly elevated, but free T4 and total T4 are normal. Free T3 slightly low. Blood pressure has been elevated. Plan: Discontinue IV fluids, replace potassium, start Norvasc for elevated blood pressure, anticipate discharge home tomorrow after 2D echocardiogram. #2 abnormal EKG: Repeat EKG from today revealed persistent T wave inversion in leads V3, V4, V5 as well as V6. Troponin is negative x3. Patient denied any chest pain. As mentioned above blood pressure is elevated. Echocardiogram was not done yesterday. Plan for echocardiogram tomorrow morning. #3 elevated blood pressure: Systolic blood has been persistently above 150, goes up to 165. Today's potassium is 2.9 which may raise concern for secondary hypertension including hyperaldosteronism although it is rare. Plan: Check serum aldosterone, renin, serum cortisol, start Norvasc for elevated blood pressure, IV hydralazine PRN. Completion of the work-up for this hypertension can be done as outpatient and patient can be discharged once the echocardiogram obtained and is okay. #4 questionable near syncopal episode: Likely due to vasovagal secondary to dehydration. Today, her orthostatic vitals reviewed, blood pressure has been elevated, but pressure did not drop down significantly upon standing. #5 hypothyroidism: TSH slightly elevated. Both free and total T4 are normal, free T3 slightly low. Plan to continue same treatment, patient may need repeat TSH in 2 to 4 weeks which can be done as outpatient. #6 depression/anxiety: Stable, continue Klonopin and escitalopram. #7 hyperlipidemia: Currently not on statins. #8 DVT prophylaxis, subcu Lovenox. This note was generated with [employer] dictation software. It may contain incorrect words, spelling, and punctuation that were not noted in checking the note before signing. OBSV E&M: 98103 Subsequent observation care L2
[2019-11-17] MEDS: amLODIPine 5 MG Tablet PO (09:26)
[2019-11-18] VITALS (7 sets, daily range): BP systolic 91–173; BP diastolic 71–114; PULSE 70–94; RESP 18; TEMP 36.9–37; O2SAT 95–97
[2019-11-18] MEDS: Levothyroxine 50 MCG Tablet PO (05:10)
[2019-11-18 06:21] LABS: Potassium 3.5 mmol/L (3.5-5.1); Sodium Level 131 mmol/L (136-145)
[2019-11-18] MEDS: Acetaminophen 325 MG Tablet 650 MG PO (08:03)
[2019-11-18] MEDS: amLODIPine 5 MG Tablet PO (09:27)
[2019-11-18] MEDS: Enoxaparin 40 MG/0.4 ML Syringe 30 MG SC (09:27)
--- NOTE | 2019-11-18 10:13 | NURSING ---
This RN updated the pt's son, Anthony via phone.
[2019-11-18] MEDS: Escitalopram Oxalate 20 MG Tablet PO (10:15)
--- NOTE | 2019-11-18 11:10 | EKG12_ITS ---
Test Reason : EKG CHANGES Blood Pressure : / mmHG Vent. Rate : 085 BPM Atrial Rate : 085 BPM P-R Int : 162 ms QRS Dur : 074 ms QT Int : 364 ms P-R-T Axes : 006 -60 -56 degrees QTc Int : 433 ms Normal sinus rhythm Left axis deviation Inferior infarct , age undetermined Anteroseptal infarct , age undetermined ST & T wave abnormality, consider lateral ischemia Abnormal ECG When compared with ECG of 17-NOV-2019 05:34, MANUAL COMPARISON REQUIRED, DATA IS UNCONFIRMED Confirmed by SHIN LUONG ([id number]), editorial cartoonist ЕЛЕНА GO ([id number]) on 11/21/2019 12:12:50 PM Referred By: JIL Confirmed By:SHIN LUONG
--- NOTE | 2019-11-18 11:26 | DCINST_ITS ---
- Discharge Diagnoses Current Active Problems: Current Active and Chronic Problems Hypothyroidism (Chronic) Acute electrocardiogram changes (Acute) Hyponatremia (Acute) You will use the following diet at home:: Cardiac Your food should be the consistency of: Regular Your liquids should be the consistency of: Regular/Thin - 1-2 w Discharge Activity: Return to Normal Activity Additional Instructions: Wear GERSON hoses every day during the day. Allergies/Adverse Reactions: Allergies gluten Adverse Reaction (Verified 11/16/19 09:19) Nausea Medications to take at Discharge Clonazepam [Klonopin] 0.25 mg PO TID PRN PRN 11/14/14 Levothyroxine [Synthroid] 50 mcg PO DAILY 11/14/14 proMETHazine tablet [Phenergan tablet] 12.5 mg PO Q8H PRN PRN 11/14/14 Cholecalciferol (Vitamin D3) [Vitamin D3] 5,000 unit PO DAILY 12/01/16 Escitalopram Oxalate 20 mg PO DAILY 11/14/19 Amlodipine [Norvasc] 5 mg PO DAILY #30 tab 11/18/19 The following prescriptions were given: Amlodipine [Norvasc] 5 mg PO DAILY #30 tab Transmission Status: Pending to [facility] [employer] #30 Primary Care Physician: Rios Irwin MD [Primary Care Provider] - Please follow up with your Primary Care Physician in: 1-2 weeks Test Results: Test results from this visit will be discussed in further detail at your follow- up appointment, if applicable. Proposed Discharge Date: 11/18/19
--- NOTE | 2019-11-18 11:54 | CASEMGMT ---
Addendum entered by Ioana Tillman 11/18/19 12:46: Shelli from [facility] states she will being WW over to pt shortly prior to discharge. Denise SYLVESTER updated and aware. Tommy SYLVESTER CM Original Note: This RN CM to room with BAPTISTE form at this time, explanation done-pt voices understanding, and signed BAPTISTE form at this time. Original to chart and copy to pt at this time. Therapy is recommending WW for pt at this time and [facility]. Pt is agreeable to [facility] and script faxed to [facility] at this time. Pt voices no further questions/concerns/needs at this time. Tommy SYLVESTER CM
--- NOTE | 2019-11-18 14:27 | DS.PCM_ITS ---
<Jamison Bess - Last Filed: 11/18/19 14:27> Discharge Date and Diagnosis Date of Admission: 11/16/19 Date of Discharge: 11/18/19 - Primary Discharge Diagnosis Acute Problems: Near syncope Uncontrolled HTN Abnormal EKG Orthostatic hypotension Hyponatremia HLD Depression Hypothyroidism - Secondary Discharge Diagnosis Chronic Problems: Chronic Problems Hypothyroidism (Chronic) Hyperlipidemia (Chronic) Depression (Chronic) Hospital Course and Treatment Imaging Results: RAD/Chest PA and Lateral IMPRESSION: Cardiomegaly. Echo: Interpretation Summary Normal LV size. Left ventricular systolic function is normal. The estimated ejection fraction is 65 %. Stage 1 diastolic dysfunction. Mild (1+) eccentric mitral valve insufficiency. Pulmonary artery systolic pressure is 28 mmHg. Mild (1+) eccentric aortic valve insufficiency. Mild mitral valve prolapse. Compared to prior study, there is no significant change. RAD/Ribs Unil 2V No CXR IMPRESSION: No rib fracture. Operations: None Procedures: 2-D Echocardiogram Summary of Care Provided: Hospital Course: The patient is a 84 year old F with past medical history as above who presented to the emergency room with weakness, dizziness, nauseousness. This is been occurring for approximately a week and she had dizziness when ambulating, for occasions vomited. She had not been drinking or eating well. She never fully lost consciousness. She did have a fall and struck the right side of her chest against a window and had some ongoing right-sided chest pain. In the emergency room she had some nonspecific EKG changes with T wave inversion in V3, 4, 5, 6 compared to her last EKG from October 2014. She had negative troponin. Chest x-ray showed mild cardiomegaly. She had hyponatremia on BMP with a mildly elevated BUN. She was felt to have dehydration secondary to poor p.o. intake, nausea and vomiting, with associated hyponatremia. She had markedly positive orthostatic vitals. Blood pressure lying down was 173/114 declining to 150/99 when sitting, declining further to 113/72 on standing. With her marked resting hypertension she was started on Norvasc with good response. She was given GERSON hoses for orthostatic hypotension and advised on using additional care when changing position. With her nonspecific EKG changes we obtained an echocardiogram which was unremarkable, results as above. She had no symptoms of chest pain, shortness of breath, tightness or other concerning features for ischemia. Additionally, brain and elbow and aldosterone levels were obtained but are pending at this time. TSH was mildly elevated however appropriate for her age, T4 was normal, T3 was slightly low at 1.8. Cortisol level was normal. Her condition is also complicated by hyponatremia, which did mildly improve with IV hydration while here. She does take an SSRI which likely is contributing to some of her hyponatremia, and with her ongoing dizziness her home Klonopin may be part of the issue, however it would be inappropriate to discontinue these medications in this setting. She will need close follow-up with her PCP in 1 to 2 weeks. I have also advised her to follow-up with cardiology for further testing given her ongoing orthostatic hypotension and unexplained nonspecific EKG changes-I recommended follow-up with Dr. Chilel in 2 to 4 weeks. The patient was discharged home in stable condition. This patient was seen by Jamison Bess PA-C under the supervision of Doctor Beth.[]. - Physical Exam Vitals/I&O's: Vital Signs Temp Pulse Resp BP Pulse Ox 98.6 F 84 18 135/82 H 96 11/18/19 09:23 11/18/19 11:58 11/18/19 09:23 11/18/19 11:58 11/18/19 09:23 Oxygen Delivery Method Room Air Weight: 107 lb 4.784 oz Body Mass Index (BMI) 21.4 Finger Stick Blood Glucose 115 Orthostatic Vital Signs Start: 11/17/19 06:03 Freq: q24h Status: Active Protocol: Activity Type Activity Date Activity User E-Sign Co-Sign Detail Recorded Client Recorded Date Recorded By Document 11/18/19 11:58 SC [id number] 11/18/19 12:02 SC 11/18/19 11:58 Orthostatic Vitals Standing -Blood Pressure (90/60-120/80) 91/71 -Extremity Use Left Arm -Pulse Rate (60-100) 91 Sitting -Blood Pressure (90/60-120/80) 127/80 H -Extremity Use Left Arm -Pulse Rate (60-100) 91 Lying -Blood Pressure (90/60-120/80) 135/82 H -Extremity Use Left Arm -Pulse Rate (60-100) 84 Intake and Output for Last 24 Hours 06/11/17/19 11/18/19 23:59 23:59 23:59 Intake Total 1743.75 / 1743.75 2565 / 2565 450 / 450 Output Total 300 / 300 Balance 1443.75 / 1443.75 2565 / 2565 450 / 450 General: Alert, Oriented x3, Cooperative HEENT: Atraumatic, PERRLA, EOMI, Normocephalic Neck: Supple, No JVD, Negative Carotid Bruits Lungs: Clear to auscultation, Normal air movement Cardiovascular: Regular rate, No murmurs Abdomen: Bowel Sounds Present, Soft, Non Tender Extremities: No edema, Capillary Refill Less than 3 Seconds Skin: No rashes, No breakdown Musculoskeletal: No Tenderness to Palpation of Joints or Extremities Neurological: Cranial nerves II-XII grossly intact Psych/Mental Status: Normal Affect, Appropriate, Alert and oriented to time, place, person, mood and affect Laboratory Results 11/17/19 08:00: Cortisol 21.40 11/18/19 05:35: Sodium 131 L, Potassium 3.5 Discharge Diet: Low fat/ Low Cholesterol Discharge Activity: Return to Normal Activity Home Medications: Medications to take at Discharge Clonazepam [Klonopin] 0.25 mg PO TID PRN PRN 11/14/14 Levothyroxine [Synthroid] 50 mcg PO DAILY 11/14/14 proMETHazine tablet [Phenergan tablet] 12.5 mg PO Q8H PRN PRN 11/14/14 Cholecalciferol (Vitamin D3) [Vitamin D3] 5,000 unit PO DAILY 12/01/16 Escitalopram Oxalate 20 mg PO DAILY 11/14/19 Amlodipine [Norvasc] 5 mg PO DAILY #30 tab 11/18/19 Following Prescrptions Were Given to Patient: Amlodipine [Norvasc] 5 mg PO DAILY #30 tab Transmission Status: Received by [email or web address][email or web address] Primary Care Physician: Rios Irwin MD [Primary Care Provider] - Please follow up with your Primary Care Physician in: 1-2 weeks Please Follow Up With: Tye Chilel MD When: 2-4 weeks Disposition: Home Minutes spent on discharge:: 35 Patient Condition:: Stable Medical Necessity - Tobacco Use Smoking Status: Never smoker Meaningful Use Info Meaningful Use Diagnoses (Choose all that apply): None applicable <Kp Campos - Last Filed: 11/18/19 14:57> Discharge Date and Diagnosis - Secondary Discharge Diagnosis Chronic Problems: Chronic Problems Hypothyroidism (Chronic) Hyperlipidemia (Chronic) Depression (Chronic) Hospital Course and Treatment Summary of Care Provided: This patient was seen in conjunction with Jamison Bess PA-C . I have independently interviewed and examined the patient and reviewed pertinent historical, laboratory, and other data. Please refer to Jamison Bess PA-C note for details of this patient's presentation, findings, and recommendations. I have reviewed Jamison Bess PA-C note and concur with documented findings. In brief, patient is 84-year-old lady admitted with presyncopal episode. Patient was admitted to monitored bed for subsequent management. She was found to be orthostatic. Adjustments were made to her medication regimen Hospital course: As documented above - Physical Exam Vitals/I&O's: Vital Signs Temp Pulse Resp BP Pulse Ox 98.6 F 84 18 135/82 H 96 11/18/19 09:23 11/18/19 11:58 11/18/19 09:23 11/18/19 11:58 11/18/19 09:23 Oxygen Delivery Method Room Air Weight: 48.67 kg Body Mass Index (BMI) 21.4 Finger Stick Blood Glucose 115 Orthostatic Vital Signs Start: 11/17/19 06:03 Freq: q24h Status: Active Protocol: Activity Type Activity Date Activity User E-Sign Co-Sign Detail Recorded Client Recorded Date Recorded By Document 11/18/19 11:58 SC [id number] 11/18/19 12:02 SC 11/18/19 11:58 Orthostatic Vitals Standing -Blood Pressure (90/60-120/80) 91/71 -Extremity Use Left Arm -Pulse Rate (60-100) 91 Sitting -Blood Pressure (90/60-120/80) 127/80 H -Extremity Use Left Arm -Pulse Rate (60-100) 91 Lying -Blood Pressure (90/60-120/80) 135/82 H -Extremity Use Left Arm -Pulse Rate (60-100) 84 Intake and Output for Last 24 Hours 11/16/19 11/17/19 11/18/19 23:59 23:59 23:59 Intake Total 1743.75 / 1743.75 2565 / 2565 450 / 450 Output Total 300 / 300 Balance 1443.75 / 1443.75 2565 / 2565 450 / 450 Laboratory Results 11/17/19 08:00: Cortisol 21.40 11/18/19 05:35: Sodium 131 L, Potassium 3.5
[2020-08-06 11:31] LABS: Aldosterone, Serum < 1.0 ng/dL (0.0-30.0); Renin, Plasma 0.357 ng/mL/hr (0.167-5.380)
== END 2019-11-18 11:27 | disposition home or self-care (01) ==
LOC: ED 11:51 → PCU 12:22
PROVIDERS: Admitting Provider Hospitalist; Emergency Provider Physician Assistant Medical; PCP Family Medicine; Visit Provider Internal Medicine
DX: I95.1 Orthostatic hypotension (principal); I10 Essential (primary) hypertension; E78.5 Hyperlipidemia, unspecified; E03.9 Hypothyroidism, unspecified; F32.9 Major depressive disorder, single episode, unspecified; R94.31 Abnormal electrocardiogram [ECG] [EKG]; E87.1 Hypo-osmolality and hyponatremia; R11.2 Nausea with vomiting, unspecified; E86.0 Dehydration; I08.3 Combined rheumatic disorders of mitral, aortic and tricuspid valves; Z79.899 Other long term (current) drug therapy; R03.0 Elevated blood-pressure reading, without diagnosis of hypertension
CPT/HCPCS: 36415; 71046; 71100; 80053; 81001; 82088; 82436; 82533; 82570; 83735; 83930; 83935; 84132; 84244; 84295; 84300; 84436; 84439; 84443; 84481; 84484; 85025; 93005; 93306; 96360; 96361; 96372; 97116; 97161; 97165; 97530; 97802; 99218; 99251; 99285; J7030; A4216; G0378; G0463

== ENCOUNTER → 2019-12-11 10:42 | Outpatient (CLI) | payer MEDICARE, SELFPAY ==
[2019-12-11 09:50] VITALS: BMI 20.1
[2019-12-11 12:12] LABS: Anion Gap 5 (5-15); BUN 12 mg/dL (7-18); Calcium,Total 8.7 mg/dL (8.5-10.1); Chloride 106 mmol/L (98-107); Creatinine, Serum 0.67 mg/dL (0.55-1.02); EST Glomerular Filtration Rate 89 mL/min (>60); Est Glom Filt Rate - Afr Amer 108 mL/min (>60); Glucose 72 mg/dL (74-106); Potassium 3.8 mmol/L (3.5-5.1); Sodium Level 139 mmol/L (136-145)
== END ==
PROVIDERS: PCP Family Medicine; Referring Provider Internal Medicine Cardiovascular Disease; Visit Provider Internal Medicine Cardiovascular Disease
DX: I65.22 Occlusion and stenosis of left carotid artery (principal)
CPT/HCPCS: 36415; 80048

== ENCOUNTER → 2019-12-16 09:55 | Outpatient (CLI) | payer MEDICARE, SELFPAY ==
[2019-12-11 09:50] VITALS: BMI 20.1
--- NOTE | 2019-12-16 09:56 | CDU_ITS ---
Reason For Study: TIA Rt. Velocities/BP Lt. Velocities/BP Prox CCA 83.3/16.8 cm/sec. Prox CCA 89.6/18.2 cm/sec. Mid CCA 78.1/18.1 cm/sec. Mid CCA 67.7/16.0 cm/sec. Dist CCA 78.1/18.1 cm/sec. Dist CCA 69.9/20.4 cm/sec. Prox ICA 84.6/15.5 cm/sec. Prox ICA 179.1/34.2 cm/sec. Mid ICA 54.8/18.6 cm/sec. Mid ICA 72.1/18.2 cm/sec. Dist ICA 89.6/33.6 cm/sec. Dist ICA 64.4/23.7 cm/sec. Rt. ICA/CCA = 89.6/83.3=1.1. Lt. ICA/CCA = 179.1/89.6=2.0. Prox ECA 69.0/10.3 cm/sec. Prox ECA 80.8/8.3 cm/sec. Rt. Vert. 37.7/11.5 cm/sec. Lt. Vert. 33.9/7.5 cm/sec. Right Extracranial There is intimal thickening but no significant atherosclerotic plaque noted in the right common carotid artery. There is homogeneous, smooth atherosclerotic plaque noted in the right internal carotid artery. There is intimal thickening but no significant atherosclerotic plaque noted in the right external carotid artery. Antegrade flow is noted in the right vertebral artery. There is heterogeneous, smooth atherosclerotic plaque noted in the right bulb. Left Extracranial There is intimal thickening but no significant atherosclerotic plaque noted in the left common carotid artery. There is homogeneous, smooth atherosclerotic plaque noted in the left internal carotid artery. The left internal carotid artery is very tortuous. There is intimal thickening but no significant atherosclerotic plaque noted in the left external carotid artery. Antegrade flow is noted in the left vertebral artery. There is heterogeneous, irregular atherosclerotic plaque noted in the left bulb. Procedure Carotid Duplex [id number]. The exam was diagnostic. Exam performed in department. Interpretation Summary Mild (<50%) stenosis right extracranial internal carotid. Moderate (50-69%) stenosis left extracranial internal carotid. Flow within the vertebral arteries is antegrade bilaterally. Ordering Physician: Tye Chilel Referring Physician: Rios Irwin Performed By: Jyoti Ruggiero RDCS, RVT
== END ==
PROVIDERS: PCP Family Medicine; Referring Provider Internal Medicine Cardiovascular Disease; Visit Provider Internal Medicine Cardiovascular Disease
DX: I65.22 Occlusion and stenosis of left carotid artery (principal)
CPT/HCPCS: 93880

== ENCOUNTER → 2020-05-04 13:21 | Outpatient (CLI) | payer MEDICARE, SELFPAY ==
[2019-12-11 09:50] VITALS: BMI 20.1
[2020-05-04 15:44] LABS: Absolute Lymphocyte Count 0.75 X10^3/uL (0.83-4.51); Absolute Neutrophil Count 2.2 X10^3/uL (2.0-7.7); Basophil# 0.01 X10^3/uL; Basophil% 0.3 % (0-1); Eosinophil# 0.03 X10^3/uL; Eosinophils% 0.9 % (0-5); Hematocrit 41.7 % (37-47); Hemoglobin 13.3 g/dL (12.0-15.0); Lymphocyte # 0.75 X10^3/ul (4.0); Lymphocyte % 21.7 % (19-41); Mean Corp Hgb Conc 31.9 g/dL (32-36); Mean Corpuscular Hgb 29.6 pg (27.0-32.0); Mean Corpuscular Volume 92.7 fL (81-99); Mean Platelet Vol. 11.4 fl (6.2-12.0); Monocyte# 0.46 X10^3/uL; Monocyte% 13.3 % (0-10); NRBC Flagged by Analyzer 0 % (0-5); Neutrophil # 2.19 X10^3/uL (2.7-7.7); Neutrophil % 63.5 % (47-70); Platelet Count 162 K/mm3 (150-450); RBC Distribution Width CV 13.2 % (11.6-14.6); RBC Distribution Width SD 45.2 fl (35.1-43.9); White Blood Count 3.5 K/mm3 (4.4-11.0)
[2020-05-04 15:56] LABS: ALB/GLOB Ratio 1.3 RATIO (0.9-2.4); AST(SGOT) 30 U/L (15-37); Alanine Aminotransfer ALT/SGPT 29 U/L (13-56); Alkaline Phosphatase 97 U/L (45-117); Anion Gap 7 (5-15); BUN 16 mg/dL (7-18); Calcium,Total 9.1 mg/dL (8.5-10.1); Chloride 103 mmol/L (98-107); Creatinine, Serum 0.73 mg/dL (0.55-1.02); EST Glomerular Filtration Rate 81 mL/min (>60); Est Glom Filt Rate - Afr Amer 98 mL/min (>60); Globulin 3.1 g/dL (2.2-4.2); Glucose 71 mg/dL (74-106); Potassium 3.9 mmol/L (3.5-5.1); Protein, Total 7.1 g/dL (6.4-8.2); Sodium Level 137 mmol/L (136-145); T4 Free Direct 1.12 ng/dL (0.76-1.46); Thyroid Stim Hormone (TSH) 1.81 uIU/mL (0.358-3.74)
== END ==
PROVIDERS: PCP Family Medicine; Visit Provider Family Medicine
DX: E03.9 Hypothyroidism, unspecified (principal); I65.22 Occlusion and stenosis of left carotid artery; E78.5 Hyperlipidemia, unspecified; E55.9 Vitamin D deficiency, unspecified
CPT/HCPCS: 36415; 80053; 82306; 84439; 84443; 85025

== ENCOUNTER → 2020-05-11 14:43 | Outpatient (CLI) | payer MEDICARE, SELFPAY ==
[2019-12-11 09:50] VITALS: BMI 20.1
--- NOTE | 2020-05-11 14:45 | CT_ITS ---
HISTORY: ENLARGING ABD GIRTH, UNINTENDED WEIGHT LOSS? MASS ADDITIONAL HISTORY: None provided. EXAMINATION/TECHNIQUE: CT Abdomen And Pelvis W/ Contrast Injection CONTRAST: 100mL Isovue-300 IV contrast. Enteric contrast was given. A radiation dose optimization technique was used for this scan. Number of images including paperwork: [id number] COMPARISON: 11/14/2019, 05/03/2012 FINDINGS: LOWER THORAX: No consolidation or pleural effusion. Mild linear basilar opacities suggestive of atelectasis. Cardiomegaly. Vascular tortuosity. Coronary calcification. LIVER: No concerning focal lesion. Small hepatic cysts appear similar. GALLBLADDER: No radiopaque calculi. BILE DUCTS: No significant biliary dilatation. SPLEEN: Unremarkable. PANCREAS: 8 mm cyst in the pancreatic head is unchanged compared to 2012. No further follow-up warranted. ADRENAL GLANDS: Unremarkable. KIDNEYS/URETERS: Unremarkable. BOWEL: No bowel obstruction. No significant bowel wall thickening. No localized inflammation. Colonic diverticulosis. Moderate amount of colonic stool. APPENDIX: No evidence of appendicitis. FREE FLUID: No significant free fluid. FREE AIR: None. LYMPH NODES: No pathologic appearing adenopathy. PERITONEUM, RETROPERITONEUM AND MESENTERY: Otherwise unremarkable. VASCULATURE: Atherosclerotic calcification. PELVIS: Unremarkable bladder. No pelvic mass. ABDOMINAL WALL: Unremarkable. OSSEOUS AND SOFT TISSUE STRUCTURES: No acute skeletal findings. Anterior wedging of T12 similar to 11/14/2019. Left hip prosthesis. Degenerative changes. Right convex lumbar scoliosis again seen. CT/Abdomen/Pelvis WITH Contrast IMPRESSION: No acute abdominopelvic abnormality. No mass detected. Individualized dose optimization techniques were used for this CT. at 0027 Reported and signed by: Elissa Yung MD Electronically Signed: Elissa Yung MD at 0:27 EST Tel , Service support ,
== END ==
PROVIDERS: PCP Family Medicine; Referring Provider Family Medicine; Visit Provider Family Medicine
DX: R19.00 Intra-abdominal and pelvic swelling, mass and lump, unspecified site (principal); R63.4 Abnormal weight loss
CPT/HCPCS: 74177; Q9967

== ENCOUNTER 2020-07-12 08:47 | Inpatient (IN) | payer MEDICARE, SELFPAY ==
[2020-07-12] VITALS (10 sets, daily range): BP systolic 121–182; BP diastolic 85–114; PULSE 74–89; RESP 10–20; TEMP 36.2–37; O2SAT 95–98; BMI 20.5; BMI 19.3; BMI 19.4
--- NOTE | 2020-07-12 09:05 | CT_ITS ---
STUDY: CT BRAIN WITHOUT CONTRAST REASON FOR EXAM: Female, 85 years old. RT ARM WEAKNESS RADIATION DOSAGE (If Supplied By Facility): CTDIvol = ( 44.99 ) mGy, DLP = ( 779.24 ) mGycm TECHNIQUE: Transaxial CT imaging of the brain was performed without administration of intravenous contrast material. Individualized dose optimization techniques were used for this CT. COMPARISON: 11/14/2014 FINDINGS: Normal soft tissue structures. Normal calvarium. There is moderate cerebral atrophy with widening of the extra-axial spaces and ventricular dilatation. There are areas of decreased attenuation within the white matter tracts of the supratentorial brain, consistent with microvascular disease changes. 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 Normal brainstem. Normal cerebellum. There is no intracranial hemorrhage. There are no findings of an acute ischemic infarction. Normal visualized paranasal sinuses. CT/Brain/Head without Contrast IMPRESSION: Chronic involutional changes of the brain. Electronically Signed: Honorio North MD at 9:57 EST Tel , Service support ,
--- NOTE | 2020-07-12 09:05 | RAD_ITS ---
STUDY: X-RAY CHEST REASON FOR EXAM: Female, 85 years old. FRACTURED HIP TECHNIQUE: Single AP portable view of the chest. COMPARISON: 11/16/2019 FINDINGS: The lungs are clear and expanded. There is no demonstrated pleural abnormality. There is moderate cardiac enlargement. Normal mediastinum and brain. Normal visualized pulmonary arteries. There is atherosclerotic tortuosity of the aortic arch and descending thoracic aorta. Normal visualized thoracic spine. Normal visualized ribs, clavicles, and shoulders. There is no demonstrated abnormality of the visualized soft tissue structures of the upper abdomen. RAD/Chest 1 View (Portable) IMPRESSION: No active disease. Electronically Signed: Honorio North MD at 9:58 EST Tel , Service support ,
--- NOTE | 2020-07-12 09:05 | EKG12_ITS ---
Test Reason : FALL Blood Pressure : / mmHG Vent. Rate : 072 BPM Atrial Rate : 072 BPM P-R Int : 140 ms QRS Dur : 078 ms QT Int : 406 ms P-R-T Axes : 023 -48 -58 degrees QTc Int : 444 ms Sinus rhythm with Premature supraventricular complexes Left axis deviation Septal infarct , age undetermined ST & T wave abnormality, consider inferior ischemia ST & T wave abnormality, consider anterolateral ischemia Abnormal ECG Confirmed by CASSIUS BROWN, MARION ([id number]), school photograph editor ЕЛЕНА GO ([id number]) on 07/14/2020 11:31:14 AM Referred By: JANE Confirmed By:MARION HAMMONDS MD
--- NOTE | 2020-07-12 09:06 | RAD_ITS ---
STUDY: X-RAY - PELVIS AND RIGHT HIP REASON FOR EXAM: Female, 85 years old. FALL TECHNIQUE: 3 views of the pelvis and hip. COMPARISON: None. FINDINGS: There is a non-specific bowel gas pattern. Normal visualized soft tissue structures. Normal bilateral iliac wings, sacroiliac joints and visualized sacrum. Normal bilateral superior and inferior pubic rami. Normal pubic symphysis. Normal bilateral ischial tuberosities. Acute impacted oblique fracture of the intertrochanteric proximal right femur. Normal acetabulum. Normal hip joint. RAD/HIP, UNI W/ Pelvis 2-3 Views IMPRESSION: Acute impacted fracture of the intertrochanteric proximal right femur. Electronically Signed: Honorio North MD at 9:59 EST Tel , Service support ,
--- NOTE | 2020-07-12 09:07 | ED.DCSUM_ITS ---
History of Present Illness Chief Complaint: Fall Narrative: This patient is an 85-year-old female who presents after being found down with confusion. Her last known well is unknown. History is limited due to the patient's confusion. Apparently some friends from [facility] and showed up to take her to [facility] and when she did not answer they found her on the floor. The patient does not recall falling she does not know how she got on the floor. She is complaining of right hip pain. She has no other complaints. She lives alone and per report her is in a jail. Past Medical History - Allergies and Home Meds Allergies/Adverse Reactions: Allergies gluten Adverse Reaction (Verified 07/12/20 08:57) Nausea Primary Care Physician: Rios Irwin MD [Primary Care Provider] - Past Medical History: - - Hypertension, hyperlipidemia, hypothyroidism Surgical History: total hip arthroplasty Smoking Status: Never smoker - Family History Maternal Family History: Reports: No pertinent history Paternal Family History: Reports: No pertinent history Review of Systems ROS: Unable to Obtain Physical Exam Vital Signs/Narrative: Vital Signs Temp Pulse Resp BP Pulse Ox 07/12/20 08:50 97.2 F L 88 10 L 182/114 H 97 Inital Vital Signs reviewed: Yes General: Well nourished Head: Normocephalic Eyes: EOMI ENT: Moist mucous membranes Neck: Supple Cardiovascular: Regular rate, Regular rhythm Respiratory: No distress, CTA bilaterally Abdomen: Soft, Nontender, Nondistended Skin: Pallor Neurological: Alert, - - Patient is oriented to place and month but is confused, mild slurred speech, patient has right arm drift, patient is unable to lift the right leg however this is limited due to her right hip pain she has movement but no effort against gravity NIHSS = 5 Psychological: Normal affect Diagnostic/Tx/Re-eval Impressions Brain CT 07/12/20 09:05 IMPRESSION: Chronic involutional changes of the brain. Electronically Signed: Honorio North MD at 9:57 EST Tel , Service support , Chest X-Ray 07/12/20 09:05 IMPRESSION: No active disease. Electronically Signed: Honorio North MD at 9:58 EST Tel , Service support , Hip/Pelvis X-Ray 07/12/20 09:06 IMPRESSION: Acute impacted fracture of the intertrochanteric proximal right femur. Electronically Signed: Honorio North MD at 9:59 EST Tel , Service support , 07/12/20 09:05 Brain/Head without Contrast [CT] Stat Chest 1 View (Portable) [RAD] Stat 07/12/20 09:06 HIP, UNI W/ Pelvis 2-3 Views [RAD] Stat Laboratory Results 07/12/20 07/12/20 07/12/20 09:00 09:00 09:36 WBC 11.6 H RBC 4.01 L Hgb 11.9 L Hct 37.2 MCV 92.8 MCH 29.7 MCHC 32.0 RDW Std Deviation 46.8 H RDW Coeff of Aida 13.7 Plt Count 201 MPV 11.1 Immature Gran % (Auto) 0.900 Neut % (Auto) 87.9 H Lymph % (Auto) 5.0 L Harvey % (Auto) 6.1 Eos % (Auto) 0.0 Baso % (Auto) 0.1 Absolute Neuts (auto) 10.2 H Absolute Lymphs (auto) 0.58 L Nucleated RBC % 0 Platelet Estimate ADEQUATE Ovalocytes RARE Acanthocytes (Spur) RARE Sodium 137 Potassium 3.7 Chloride 103 Carbon Dioxide 26.0 Anion Gap 8 BUN 25 H Creatinine 0.98 Estim Creat Clear Calc 32.59 Est GFR (MDRD) Af Amer 69 Est GFR (MDRD) Non-Af 57 L BUN/Creatinine Ratio 25.5 H Glucose 173 H Calcium 9.4 Troponin I < 0.015 Urine Color Yellow Urine Clarity Sl. Cloudy Urine pH 5.0 Ur Specific [place] 1.025 Urine Protein 30 H Urine Glucose (UA) Normal Urine Ketones 5 H Urine Occult Blood 10 H Urine Nitrite Negative Urine Bilirubin Negative Urine Urobilinogen Normal Ur Leukocyte Esterase Negative Urine RBC 0 SEEN Urine WBC 0 SEEN Ur Squamous Epith Cells 0-5 SEEN Urine Bacteria 1+ Hyaline Casts 0-5 SEEN Urine Mucus RARE - Medical Decision Making EKG shows sinus rhythm at a rate of 72. Patient does have inferior and lateral precordial T wave inversions. This is similar to prior. Her serum laboratory studies are unremarkable. Urinalysis does not show evidence of cystitis. CT the head shows chronic changes. Chest x-ray shows no acute process. Right hip x-ray does show an intertrochanteric hip fracture. Patient discussed with the hospitalist, Dr. Gaston and will be admitted for further evaluation and management. Patient will also be discussed with orthopedics on-call, Dr. Acosta in regards to the right hip fracture, awaiting return call at the time of this dictation. ED Disposition - Plan for ED Patient: Disposition: Acute Care Hospital [facility] Diagnosis: Closed right hip fracture, Altered mental status, Right arm weakness Referrals: Rios Irwin MD [Primary Care Provider] -
[2020-07-12 09:19] LABS: Absolute Lymphocyte Count 0.58 X10^3/uL (0.83-4.51); Absolute Neutrophil Count 10.2 X10^3/uL (2.0-7.7); Basophil# 0.01 X10^3/uL; Basophil% 0.1 % (0-1); Hematocrit 37.2 % (37-47); Hemoglobin 11.9 g/dL (12.0-15.0); Lymphocyte # 0.58 X10^3/ul (4.0); Mean Corpuscular Hgb 29.7 pg (27.0-32.0); Mean Corpuscular Volume 92.8 fL (81-99); Mean Platelet Vol. 11.1 fl (6.2-12.0); Monocyte# 0.71 X10^3/uL; Monocyte% 6.1 % (0-10); NRBC Flagged by Analyzer 0 % (0-5); Neutrophil # 10.21 X10^3/uL (2.7-7.7); Neutrophil % 87.9 % (47-70); POSITIVE DIFFERENTIAL YES; Platelet Count 201 K/mm3 (150-450); RBC Distribution Width CV 13.7 % (11.6-14.6); RBC Distribution Width SD 46.8 fl (35.1-43.9); Red Blood Count 4.01 M/mm3 (4.2-5.4); White Blood Count 11.6 K/mm3 (4.4-11.0)
[2020-07-12 09:20] LABS: Differential Indicated SCAN CRITERIA MET
[2020-07-12 09:32] LABS: Anion Gap 8 (5-15); BUN 25 mg/dL (7-18); BUN/Creat Ratio 25.5 RATIO (10-20); Calcium,Total 9.4 mg/dL (8.5-10.1); Chloride 103 mmol/L (98-107); Creatinine, Serum 0.98 mg/dL (0.55-1.02); EST Glomerular Filtration Rate 57 mL/min (>60); Est Glom Filt Rate - Afr Amer 69 mL/min (>60); Estimated Creatinine Clearance 32.59 ml/min; Glucose 173 mg/dL (74-106); Potassium 3.7 mmol/L (3.5-5.1); Sodium Level 137 mmol/L (136-145)
[2020-07-12 09:42] LABS: Red Blood Cells-Urine 0 SEEN /hpf (0-5); White Blood Cells 0 SEEN /hpf (0-5)
[2020-07-12 09:44] LABS: Acanthocytes RARE; Ovalocyte RARE; Platelet Estimate ADEQUATE (ADEQ)
[2020-07-12 09:50] LABS: Color, Urine Yellow (Yellow); Glucose, Dipstick Normal (Normal); Ketone-Dipstick 5 mg/dl (Negative); Leukocyte Esterase-Dipstick Negative /ul (Negative); Nitrite-Dipstick Negative (Negative); Occult Blood-Urine 10 /ul (Negative); Protein-Dipstick 30 mg/dl (Negative); Specific Gravity, Urine 1.025 (1.002-1.030); Urine Bilirubin Dipstick Negative (Negative); Urine Clarity Sl. Cloudy (Clear); Urine Urobilinogen Normal (Normal)
[2020-07-12 10:01] LABS: Bacteria 1+ /hpf (None Seen); Hyaline Cast 0-5 SEEN /lpf (0-5); Mucous, Urine RARE /hpf (<or=2+); Squamous Epithelial Cells - UA 0-5 SEEN /hpf (5-10)
--- NOTE | 2020-07-12 10:54 | NURSING ---
[id number] DR COY PAGED
--- NOTE | 2020-07-12 11:10 | NURSING ---
PCU ASHELFAH RT HIP FX, AMS, RT ARM WEAKNESS
--- NOTE | 2020-07-12 11:47 | PCM.HP.STD ---
Problem List (1) Hypertension Status: Chronic (2) Closed right hip fracture Status: Acute (3) Altered mental status Status: Acute (4) Right arm weakness Status: Acute (5) Hyperlipidemia Status: Chronic (6) Carotid stenosis, left Status: Chronic History of Present Illness Date of Admission: 07/12/20 Chief Complaint: Fall, confusion. The patient is a 85 year old F with past medical history as mentioned above presented to the emergency room because of fall and confusion. Patient was found by her friends on the floor at her house and she was confused. At this time, patient is alert, confused and disoriented and was not able to provide detailed history. Reportedly, patient's friends from [employer] showed up at her house to take care to the triage and she did not answer. They went into her house and she was found on the floor, she was confused. She complained of right hip pain. She had no other complaints. She had history of hypothyroidism and she has been on levothyroxine supplement. She will history of anxiety and depression and she has been on citalopram and Klonopin. She will history of hypertension and she has been on Norvasc which has been under control. In the emergency department, patient was confused and disoriented. She was afebrile, blood pressure was elevated but improved. Other vital signs are stable. She was found to have right facial droop and left upper extremity drift. Last time when patient was well is unknown at this time. Her routine blood work was remarkable for mild leukocytosis, hemoglobin of 11.9 g/dL, blood glucose of 173. EKG revealed normal sinus rhythm with T wave inversion in leads V3 to V6 which is chronic, no acute changes. Troponin was negative. Urinalysis was unremarkable. CT scan brain showed no acute findings. Chest x-ray showed no acute infiltrate, consolidation or effusion. X-ray of the pelvis and right hip showed acute impacted intertrochanteric fracture of the right femur. She is being admitted for acute traumatic impacted right intertrochanteric femur fracture, encephalopathy and high suspicion of acute stroke. Past Medical History Past Medical History (Chronic Problems): Chronic Problems (Last Updated 07/12/20 @ 11:[address] Jose Gaston MD) Hypertension (Chronic) Hyperlipidemia (Chronic) Carotid stenosis, left (Chronic) Medical History: Medical History (Last Updated 02/21/21 @ 11:[address] Jose Gaston MD) Hyperlipidemia (Chronic) E78.5 Carotid stenosis, left (Chronic) I65.22 Depression F32.9 Hypothyroidism E03.9 Hypokalemia E87.6 Acute electrocardiogram changes (Inactive) R94.31 Allergies gluten Adverse Reaction (Verified 07/12/20 08:57) Nausea Home Medications: Ambulatory Orders Medication Instructions Recorded Clonazepam [Klonopin] 0.25 mg PO TID PRN PRN 11/14/14 Levothyroxine [Synthroid] 50 mcg PO DAILY 11/14/14 Cholecalciferol (Vitamin D3) 5,000 unit PO DAILY 12/01/16 [Vitamin D3] Amlodipine [Norvasc] 5 mg PO DAILY #30 tab 11/18/19 escitalopram oxalate 20 mg tablet 20 mg PO DAILY tab 12/10/19 meloxicam 15 mg tablet 15 mg PO DAILY PRN tab 12/11/19 pantoprazole 40 mg tablet,delayed 40 mg PO DAILY tab 12/11/19 release sucralfate 1 gram tablet 1 g PO Q6H PRN tab 12/11/19 Surgical History: Surgical History (Last Reviewed 12/11/19 @ 10:[address] 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 Denies: Difficulty Hearing, Ear Pain, Eye Pain, Nasal bleeding, Nasal Congestion, Sore Throat Cardiovascular: Denies: Chest Pain, Chest Pressure, Heaviness, Light Headedness, Palpitations, Syncope Respiratory: Denies: Cough, Pleuritic Pain, Shortness of Breath, Sputum production, Wheezing Gastrointestinal: Denies: Abdominal Pain, Constipation, Diarrhea, Nausea, Vomiting Genitourinary: Denies: Dysuria, Frequency, Hematuria Musculoskeletal: Denies: Arm Pain, Back Pain, Foot Pain Skin: Denies: Dryness, Rash Neurological: Reports: Confusion, Headaches. Denies: Balance problems, Double vision, Change in Speech, Incoordination Psychiatric: Reports: Anxiety, Depression Endocrine: Denies: Change in Body Habitus, Polydipsia, Polyuria VTE Information - Inpt Only VTE Present on Admission: No VTE Mechan Device Prophylaxis: SCD's VTE Pharm Prophylaxis ordered?: Yes Patient Problems: Active and Suspected Problems (Last Updated 07/12/20 @ 11:[address] Jose Gaston MD) Closed right hip fracture (Acute) Altered mental status (Acute) Right arm weakness (Acute) - Physical Exam Vitals/I&O's: Vital Signs Temp Pulse Resp BP Pulse Ox 97.2 F L 81 20 H 121/89 H 97 07/12/20 11:28 07/12/20 11:28 07/12/20 11:28 07/12/20 11:28 07/12/20 11:28 Oxygen Delivery Method Room Air Weight: 112 lb 6.972 oz Body Mass Index (BMI) 20.5 Finger Stick Blood Glucose 115 General: Alert, Cooperative, No apparent distress, Confused, Disoriented HEENT: Atraumatic, PERRLA, EOMI, Normocephalic Oral: Moist Mucosa, No Gingival or Mucosal Lesions/ Ulcerations Neck: Supple, No JVD, Negative Carotid Bruits, Trachea Midline, Thyroid Normal Size and Texture Lungs: Clear to auscultation, No rhonchi, No wheeze, No rales, Diminished Cardiovascular: Regular rate, Regular Rhythm, Normal S1, Normal S2, PMI Normal Abdomen: Bowel Sounds Present, Soft, Non Tender, Non-Distended, No Hepato-splenomegaly Extremities: No clubbing, No cyanosis, No edema Skin: No rashes, No breakdown Neurological: Facial Droop, Slurred Speech, - - Right facial droop. Right upper extremity drift. Psych/Mental Status: Appropriate, Flat Affect Laboratory Results 07/12/20 09:00: WBC 11.6 H, RBC 4.01 L, Hgb 11.9 L, Hct 37.2, MCV 92.8, MCH 29.7, MCHC 32.0, RDW Std Deviation 46.8 H, RDW Coeff of Aida 13.7, Plt Count 201, MPV 11.1, Immature Gran % (Auto) 0.900, Neut % (Auto) 87.9 H, Lymph % (Auto) 5.0 L, [place] % (Auto) 6.1, Eos % (Auto) 0.0, Baso % (Auto) 0.1, Absolute Neuts (auto) 10.2 H, Absolute Lymphs (auto) 0.58 L, Nucleated RBC % 0, Platelet Estimate ADEQUATE, Ovalocytes RARE, Acanthocytes (Spur) RARE 07/12/20 09:00: Sodium 137, Potassium 3.7, Chloride 103, Carbon Dioxide 26.0, Anion Gap 8, BUN 25 H, Creatinine 0.98, Estim Creat Clear Calc 32.59, Est GFR (MDRD) Af Amer 69, Est GFR (MDRD) Non-Af 57 L, BUN/Creatinine Ratio 25.5 H, Glucose 173 H, Calcium 9.4, Troponin I < 0.015 07/12/20 09:36: Urine Color Yellow, Urine Clarity Sl. Cloudy, Urine pH 5.0, Ur Specific [place] 1.025, Urine Protein 30 H, Urine Glucose (UA) Normal, Urine Ketones 5 H, Urine Occult Blood 10 H, Urine Nitrite Negative, Urine Bilirubin Negative, Urine Urobilinogen Normal, Ur Leukocyte Esterase Negative, Urine RBC 0 SEEN, Urine WBC 0 SEEN, Ur Squamous Epith Cells 0-5 SEEN, Urine Bacteria 1+, Hyaline Casts 0-5 SEEN, Urine Mucus RARE Clinical Impression(s) from Imaging Studies Brain CT 07/12/20 09:05 IMPRESSION: Chronic involutional changes of the brain. Electronically Signed: Honorio North MD at 9:57 EST Tel , Service support , Chest X-Ray 07/12/20 09:05 IMPRESSION: No active disease. Electronically Signed: Honorio North MD at 9:58 EST Tel , Service support , Hip/Pelvis X-Ray 07/12/20 09:06 IMPRESSION: Acute impacted fracture of the intertrochanteric proximal right femur. Electronically Signed: Honorio North MD at 9:59 EST Tel , Service support , Assessment/Plan All Active Problems (Last Updated 07/12/20 @ 11:[address] Jose Gaston MD) Closed right hip fracture (Acute) Altered mental status (Acute) Right arm weakness (Acute) This is an 85 years old female patient presented to the emergency room because of fall and confusion, found to have right facial droop and right upper arm drift, found to have acute right intratrochanteric femur fracture and she is being admitted for evaluation and treatment. #1 mechanical fall/acute traumatic intertrochanteric right femur fracture: Due to mechanical fall. Plan: Admit to PCU, cardiac monitoring, complete bedrest, insert Chen catheter, gentle IV fluids for hydration, IV morphine as needed for pain, OxyIR as needed for pain, IV antiemetics, orthopedic surgery consult, repeat CBC and BMP tomorrow morning, PT OT evaluation and treatment. #2 right upper extremity drift/right facial droop: High suspicion of acute stroke. Initial CT scan brain showed no acute findings. EKG revealed chronic T wave inversion in lateral chest leads, no acute findings. Troponin was negative. Significant drift on the right upper extremity. Could not examine the right lower extremity because of the fracture. Plan: Complete bedrest, NIH stroke scale, start aspirin and Lipitor, lipid profile, MRI brain. Patient had carotid Doppler on November, that showed less than 50% stenosis of the right internal carotid and 50 to 69% on the left internal carotid. She had 2D echocardiogram on October, that showed ejection fraction of 65%, stage I diastolic dysfunction and mild mitral valve prolapse. This time, I do not think that we need to repeat the imaging study of the neck or the 2D echocardiogram but if the MRI came back positive for stroke, CTA head and neck should be done. Consider to consult [facility] tele-neurology if the MRI is positive for stroke. #3 preoperative evaluation: 85 years old female patient with history of hypertension, hypothyroidism and hyperlipidemia, presenting with highly suspected acute stroke. She lives at home with her who is currently at the half-way, has been recently more confused. X-ray and EKG reviewed as above. Based on her age, kidney function, functional status and type of surgery, her estimated risk for perioperative myocardial infarction or cardiac arrest is 0.45% and because of the highly suspected acute stroke, it might be higher. Based on ACS NSQIP surgical risk calculator, her estimated risk for serious complications is 14.3% which is above average. At this time, her risk of intraoperative and postoperative complications is at least high. Plan to wait for the MRI brain, SOC tele-neurology consult if the MRI is positive for acute stroke. #4 acute encephalopathy: Patient is confused and disoriented. Likely because of the suspected stroke. CT scan brain showed no acute findings this time. Plan as above. #5 hypertension: Initially, blood pressure was elevated but improved. Continue home medications when home medication list updated. #6 hyperlipidemia: Start Lipitor, check lipid profile. #7 hypothyroidism: Continue levothyroxine. #8 left carotid stenosis: Bilateral carotid Doppler that was done on November, reviewed as above. Plan as above. #9 CODE STATUS: DNR CCA, no intubation. Advanced directive paperwork reviewed. I discussed the CODE STATUS with the patient herself and her daughter. Although patient was confused and stated, she was able to understand my questions and she agreed to DNR CCA status. I explained the different code types to the patient's daughter who states that according to the patient's paperwork, she is DNR CCA. Patient's daughter is aware and she confirmed the status. #10 DVT prophylaxis: Subcu Nevaehx, SCDs. This note was generated with ulike dictation software. It may contain incorrect words, spelling, and punctuation that were not noted in checking the note before signing. Inpatient E&M: 23280 Init Hosp L3 Procedures: 73217 Advncd Care Plan 30 Min - Time spent on discussion of the CODE STATUS with the patient and her daughter is 16 minutes.
[2020-07-12 12:52] LABS: Cholesterol 215 mg/dL (200); High Density Lipoprotein 72 mg/dL; Triglycerides 92 mg/dL; Very Low Density Lipoprotein 18 mg/dL (5-40)
[2020-07-12 12:58] LABS: Hemoglobin A1c 5.4 % (3.8-5.6)
[2020-07-12] MEDS: Lactated Ringers 1,000 ML 75 ML IV (13:45)
--- NOTE | 2020-07-12 13:54 | CPS ---
Attempted to do SMI with pt. Pt unable to perform proper technique
--- NOTE | 2020-07-12 19:09 | PCM.HOSP.N ---
Hospitalist Note Called to bedside as patient was found on the floor. Patient presented with a right impacted hip fracture after a fall. Patient is confused and unable provide any history so history is taken to the nursing. Exam patient patient has full range of passive motion in her left lower extremity. Did not do range of motion with the right lower extremity given the known hip fracture. +2 dorsalis pedal and posterior tibial pulses bilaterally. Is able to move the right foot spontaneously. Sensation appears to be intact throughout. Patient has underlying dementia and there is concern the patient may become more agitated so as needed haloperidol has been ordered. I do not feel any additional imaging is necessary at this time. Patient already has a known impacted right hip fracture and orthopedics is to see. I advised immobilization of the right lower extremity. No additional work-up necessary at this time. Patient did not hit her head so no brain imaging is necessary.
[2020-07-12] MEDS: Atorvastatin Calcium 80 MG Tablet PO (20:29)
[2020-07-12] MEDS: oxyCODONE 5 MG Tablet PO (20:29)
[2020-07-12] MEDS: 0.9% Saline Lock 10 ML Syringe IV (23:48)
[2020-07-12] MEDS: Haloperidol Lactate 5 MG/ML Vial 1 MG IV (23:48)
[2020-07-13] VITALS (10 sets, daily range): BP systolic 119–165; BP diastolic 76–102; PULSE 67–88; RESP 14–18; TEMP 36.3–37.2; O2SAT 93–97
[2020-07-13] MEDS: Haloperidol Lactate 5 MG/ML Vial 2 MG IV (01:45)
[2020-07-13] MEDS: 0.9% Saline Lock 10 ML Syringe IV (01:45)
[2020-07-13] MEDS: Lactated Ringers 1,000 ML 75 ML IV ×2 (02:51→17:45)
--- NOTE | 2020-07-13 04:15 | NURSING ---
Pt has been restless and increasingly agitated throughout the night. 1 mg of IV haldol given at 2348 without results so x1 2 mg IV Haldol ordered and given at 01:45. Pt finally fell asleep so NIH and vitals were not received at this time. If pt wakes up this RN will obtain them then.
[2020-07-13 05:49] LABS: Absolute Neutrophil Count 7.1 X10^3/uL (2.0-7.7); Basophil# 0.01 X10^3/uL; Basophil% 0.1 % (0-1); Eosinophil# 0.01 X10^3/uL; Eosinophils% 0.1 % (0-5); Hemoglobin 9.5 g/dL (12.0-15.0); Lymphocyte % 14.6 % (19-41); Mean Corp Hgb Conc 32.8 g/dL (32-36); Mean Corpuscular Hgb 30.4 pg (27.0-32.0); Mean Corpuscular Volume 92.9 fL (81-99); Mean Platelet Vol. 10.9 fl (6.2-12.0); Monocyte# 1.05 X10^3/uL; NRBC Flagged by Analyzer 0 % (0-5); Neutrophil # 7.05 X10^3/uL (2.7-7.7); Neutrophil % 73.6 % (47-70); Platelet Count 144 K/mm3 (150-450); RBC Distribution Width CV 13.7 % (11.6-14.6); RBC Distribution Width SD 46.5 fl (35.1-43.9); Red Blood Count 3.12 M/mm3 (4.2-5.4); White Blood Count 9.6 K/mm3 (4.4-11.0)
--- NOTE | 2020-07-13 05:55 | EKG12_ITS ---
Test Reason : AM EKG Blood Pressure : / mmHG Vent. Rate : 087 BPM Atrial Rate : 087 BPM P-R Int : 136 ms QRS Dur : 074 ms QT Int : 354 ms P-R-T Axes : 000 -50 -86 degrees QTc Int : 425 ms Sinus rhythm with Premature supraventricular complexes Left axis deviation Septal infarct , age undetermined Inferior infarct , age undetermined ST & T wave abnormality, consider anterolateral ischemia Abnormal ECG Confirmed by CASSIUS BROWN, MARION ([id number]), video news editor ЕЛЕНА GO ([id number]) on 07/14/2020 11:40:02 AM Referred By: DR MONTE Confirmed By:MARION HAMMONDS MD
[2020-07-13 06:13] LABS: Anion Gap 4 (5-15); BUN 33 mg/dL (7-18); BUN/Creat Ratio 53.8 RATIO (10-20); Chloride 107 mmol/L (98-107); Creatinine, Serum 0.61 mg/dL (0.55-1.02); EST Glomerular Filtration Rate 98 mL/min (>60); Est Glom Filt Rate - Afr Amer 119 mL/min (>60); Estimated Creatinine Clearance 30.41 ml/min; Glucose 99 mg/dL (74-106); Potassium 4.3 mmol/L (3.5-5.1); Sodium Level 138 mmol/L (136-145)
--- NOTE | 2020-07-13 09:00 | MRI_ITS ---
We are attempting to reach an attending provider to discuss findings. An addendum with communication details will be sent when the communication is complete. STUDY: MRI BRAIN WITHOUT CONTRAST REASON FOR EXAM: Female, 85 years old. RT SIDED WEAKNESS, rt facial droop -- confusion,fall,fx''d leg TECHNIQUE: Standardized multiplanar fat and water weighted pulse sequences were obtained. COMPARISON: CT 07/12/2020, MRI 11/14/2014 FINDINGS: There is moderate cerebral atrophy with widening of the extra-axial spaces and ventricular dilatation. There are multiple white matter hyperintensities, distributed throughout the deep white matter tracts of the cerebral hemispheres, consistent with moderate chronic white matter ischemic changes. Large hyperintensities of the medial left temporal lobe including the the left hippocampal formation and the lateral aspect left thalamus demonstrate restricted diffusion consistent with acute/subacute infarct. Normal T2* images of the brain without demonstrated susceptibility artifact. There is no demonstrated hemosiderin stain. Normal bilateral basal ganglia. Normal thalami. There is no extra-axial fluid accumulation. Normal flow voids within the major intracranial circulation suggesting patency by spin echo criteria. There is enlargement of the sella turcica with increased CSF within the sella and flattening of the pituitary gland consistent with an empty sellar syndrome. Normal infundibular stalk, hypothalamus, and optic chiasm. Normal tectal plate and pineal gland. There are chronic white matter ischemic changes of the eliceo. The midbrain and medulla are otherwise normal. Normal cerebellum. Normal basal cisterns. Normal bilateral temporal bones. Normal bilateral internal auditory canals. No demonstrated orbital abnormality, within the constraints of a routine brain study. Normal visualized paranasal sinuses. Normal calvarium and skull base. Normal visualized soft tissue structures. Normal visualized upper cervical spine. MRI/Brain without Contrast IMPRESSION: Involutional changes of the brain, as described above. 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 Electronically Signed: Honorio North MD at 13:22 EST Tel , Service support ,
--- NOTE | 2020-07-13 09:40 | PCM.CONS.GEN ---
Problem List (1) Closed right hip fracture Status: Acute Qualifiers: Encounter type: initial encounter Qualified Code(s): S72.001A - Fracture of unspecified part of neck of right femur, initial encounter for closed fracture Reason for Consult Date of Consultation: 07/13/20 Reason for Consultation: Right intertrochanteric hip fracture History of Present Illness: The patient is a 85 year old F [] Is a 85-year-old female who was found lying on her floor in her home by friends on 07/12/2020. She was transported to the emergency department via squad. The patient was nonverbal and confused which was not her normal baseline. Patient was also complaining of right hip pain. Patient apparently had right-sided neurological deficit. Imaging studies showed patient had a displaced intertrochanteric right hip fracture. Patient does have a previous left total hip arthroplasty. Today during my evaluation I found patient sleeping in bed. Patient was nonverbal. Past Medical History Past Medical History (Chronic Problems): Chronic Problems (Last Updated 07/12/20 @ 11:[address] Jose Gaston MD) Hypertension (Chronic) Hyperlipidemia (Chronic) Carotid stenosis, left (Chronic) Medical History: Medical History (Last Updated 07/12/20 @ 11:[address] Jose Gaston MD) Hyperlipidemia (Chronic) E78.5 Carotid stenosis, left (Chronic) I65.22 Depression F32.9 Hypothyroidism E03.9 Hypokalemia E87.6 Acute electrocardiogram changes (Inactive) R94.31 Allergies gluten Adverse Reaction (Verified 07/12/20 08:57) Nausea Home Medications: Ambulatory Orders Medication Instructions Recorded Clonazepam [Klonopin] 0.25 mg PO TID PRN PRN 11/14/14 Levothyroxine [Synthroid] 50 mcg PO DAILY 11/14/14 escitalopram oxalate 20 mg tablet 20 mg PO DAILY tab 12/10/19 Surgical History: Surgical History (Last Reviewed 12/11/19 @ 10:[address] 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 Jose Gaston MD) Closed right hip fracture (Acute) Altered mental status (Acute) Right arm weakness (Acute) Objective: Upon entering the room I found patient lying supine sleeping. Patient did arouse with eye opening to verbal stimuli. Patient was nonverbal did follow commands of moving feet when asked. Patient had no signs of trauma to the head face or neck. There were no signs of trauma to the upper extremities. No signs of trauma to the anterior chest wall and abdomen. Patient was exquisitely tender to palpation responded appropriately pain with palpation of the right hip. Patient had equal strong bilateral femoral pulses. And had strong bilateral posterior tibial pulses. Patient did have shortening of the right leg with external rotation of the foot. Patient was in an abductor pillow during my exam. Imaging studies of the right hip shows patient does have a displaced intertrochanteric fracture of the right hip. Patient has a well-seated femoral stem and acetabular cup in the left hip from her previous left total hip arthroplasty. - Physical Exam Vitals/I&O's: Vital Signs Temp Pulse Resp BP Pulse Ox 99 F 86 14 157/102 H 93 07/13/20 07:45 07/13/20 07:45 07/13/20 07:45 07/13/20 07:45 07/13/20 07:45 Oxygen Delivery Method Room Air Weight: 47.7 kg Body Mass Index (BMI) 19.3 Finger Stick Blood Glucose 115 Intake and Output for Last 24 Hours 07/11/20 07/12/20 07/13/20 23:59 23:59 23:59 Intake Total 100 / 100 982.5 / 982.5 Output Total 300 / 450 300 / 300 Balance -200 / -350 682.5 / 682.5 Laboratory Results 07/12/20 09:00: Platelet Estimate ADEQUATE, Ovalocytes RARE, Acanthocytes (Spur) RARE 07/12/20 09:00: Triglycerides 92, Cholesterol 215 H, LDL Cholesterol 125, VLDL Cholesterol 18, HDL Cholesterol 72 07/12/20 09:00: Hemoglobin A1c 5.4 07/12/20 09:36: Urine Color Yellow, Urine Clarity Sl. Cloudy, Urine pH 5.0, Ur Specific [place] 1.025, Urine Protein 30 H, Urine Glucose (UA) Normal, Urine Ketones 5 H, Urine Occult Blood 10 H, Urine Nitrite Negative, Urine Bilirubin Negative, Urine Urobilinogen Normal, Ur Leukocyte Esterase Negative, Urine RBC 0 SEEN, Urine WBC 0 SEEN, Ur Squamous Epith Cells 0-5 SEEN, Urine Bacteria 1+, Hyaline Casts 0-5 SEEN, Urine Mucus RARE 07/13/20 05:40: WBC 9.6, RBC 3.12 L, Hgb 9.5 L, Hct 29.0 L, MCV 92.9, MCH 30.4, MCHC 32.8, RDW Std Deviation 46.5 H, RDW Coeff of Aida 13.7, Plt Count 144 L, MPV 10.9, Immature Gran % (Auto) 0.600, Neut % (Auto) 73.6 H, Lymph % (Auto) 14.6 L, [place] % (Auto) 11.0 H, Eos % (Auto) 0.1, Baso % (Auto) 0.1, Absolute Neuts (auto) 7.1, Absolute Lymphs (auto) 1.40, Nucleated RBC % 0 07/13/20 05:40: Sodium 138, Potassium 4.3, Chloride 107, Carbon Dioxide 27.0, Anion Gap 4 L, BUN 33 H, Creatinine 0.61, Estim Creat Clear Calc 30.41, Est GFR (MDRD) Af Amer 119, Est GFR (MDRD) Non-Af 98, BUN/Creatinine Ratio 53.8 H, Glucose 99, Calcium 9.0 Current Medications Acetaminophen (Acetaminophen 325 Mg Tablet) 650 mg PO Q6H PRN PRN PRN Reason: Pain Score 1-10/Temp > 100.7 F Aspirin (Aspirin 81 Mg Tab.Chew) 81 mg PO DAILY@0800 [facility] Last Admin: 07/13/20 08:45 Dose: Not Given Documented by: Atorvastatin Calcium (Atorvastatin Calcium 80 Mg Tablet) 80 mg PO QHS [facility] Last Admin: 07/12/20 20:29 Dose: 80 mg Documented by: Enoxaparin Sodium (Enoxaparin 40 Mg/0.4 Ml Syringe) 40 mg SC DAILY [facility] Haloperidol Lactate (Haloperidol Lactate 5 Mg/Ml Vial) 1 mg IV Q4H PRN PRN PRN Reason: anxiety agitation Last Admin: 07/12/20 23:48 Dose: 1 mg Documented by: Hydralazine HCl (Hydralazine 20 Mg/Ml Vial) 10 mg IV Q8H PRN PRN PRN Reason: for SBP>160 Lactated Ringer's () 1,000 mls @ 75 mls/hr IV .[id number] IAN Last Admin: 07/13/20 02:51 Dose: 75 mls/hr Documented by: Sodium Chloride () 250 mls @ 15 mls/hr IV .[id number] PRN PRN Reason: Saline Flush Sodium Chloride () 250 mls @ 15 mls/hr IV .[id number] PRN PRN Reason: Additional IVPB Infusion Morphine Sulfate (Morphine 2 Mg/Ml Syringe) 2 mg IV Q3H PRN PRN PRN Reason: Pain Score 6-10 Ondansetron HCl (Ondansetron 4 Mg/2 Ml Vial) 4 mg IV Q8H PRN PRN PRN Reason: NAUSEA/VOMITING Oxycodone HCl (Oxycodone 5 Mg Tablet) 5 mg PO Q6H PRN PRN PRN Reason: Pain Score 6-10 Last Admin: 07/12/20 20:29 Dose: 5 mg Documented by: Senna/Docusate Sodium (Senna/Docusate Sodium 1 Tablet) 2 tablet PO BID PRN PRN PRN Reason: Constipation Sodium Chloride (0.9% Saline Lock 10 Ml Syringe) 10 - 40 ml IV UD PRN PRN Reason: SALINE FLUSH Last Admin: 07/13/20 01:45 Dose: 10 ml Documented by: Zolpidem Tartrate (Zolpidem Tartrate 5 Mg Tablet) 5 mg PO QHS PRN PRN PRN Reason: INSOMNIA Assessment/Plan All Active Problems (Last Updated 07/12/20 @ 11:[address] Jose Gaston MD) Closed right hip fracture (Acute) Altered mental status (Acute) Right arm weakness (Acute) Impression: Right hip displaced intertrochanteric hip fracture Plan 1. Continue all pain medications as prescribed 2. Ice to the right hip. 3. Pending medical clearance patient will need to undergo ORIF of the right hip fracture 4. DC aspirin with anticipation of upcoming surgery 5. N.p.o. after midnight when patient is cleared to have surgery
--- NOTE | 2020-07-13 13:08 | CASEMGMT ---
JACQUELINE received a call from Lisseth, patient's daughter. She said her dad, patient's is at a hospital in [place] due to a Stroke. He is confused and currently cannot make any decisions. 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 She needs to pay some bills for them. She said patient's project financial analyst suggested they talk with JACQUELINE at [facility] and see if the physician can write a letter indicating patient cannot make any decisions right now. JACQUELINE spoke with Dr Garcia and he was in agreement with signing a letter. Letter was drawn up and physician signed. JACQUELINE called Lisseth back and let her know JACQUELINE cannot e-mail patient information, but JACQUELINE can fax the letter. She gave JACQUELINE the phone number for patient's project financial analyst to obtain their fax number. JACQUELINE called [facility] at [phone] and their fax number is [phone]. JACQUELINE faxed the letter to [facility] [employer]. Patient's daughter said her dad will be going to [facility] for his rehab. She is thinking it would be good if patient could go there for her rehab. JACQUELINE told her SW will continue to follow. Sandra BALLARD MSW
--- NOTE | 2020-07-13 20:17 | PCM.PROGNOTE ---
Patient Problems: Active and Suspected Problems (Last Updated 07/12/20 @ 11:[address] Jose Gaston MD) Closed right hip fracture (Acute) Altered mental status (Acute) Right arm weakness (Acute) Subjective: Patient was seen and examined today, she underwent an MRI that showed acute/subacute infarcts of the medial left temporal lobe including the hippocampus and the lateral aspect of the left thalamus. I talked briefly with anesthesia today and the patient's daughter and also with orthopedic coverage about her medical care. Patient is alert today, she is able to carry on short sentences with this examiner. - Physical Exam Vitals/I&O's: Vital Signs Temp Pulse Resp BP Pulse Ox 98.9 F 67 16 163/97 H 96 07/13/20 18:10 07/13/20 19:25 07/13/20 18:10 07/13/20 18:10 07/13/20 18:10 Oxygen Delivery Method Room Air Weight: 47.7 kg Body Mass Index (BMI) 19.3 Finger Stick Blood Glucose 115 Intake and Output for Last 24 Hours 07/11/20 07/12/20 07/13/20 23:59 23:59 23:59 Intake Total 100 / 100 2213.75 / 2213.75 Output Total 300 / 450 725 / 725 Balance -200 / -350 1488.75 / 1488.75 General: Alert, Oriented x3, Cooperative, No apparent distress, Well developed, Well nourished HEENT: Atraumatic, PERRLA, EOMI, Normocephalic Oral: Moist Mucosa Neck: Supple, No JVD, Trachea Midline, Thyroid Normal Size and Texture Lungs: Clear to auscultation, Normal air movement, No rhonchi, No wheeze, No rales Cardiovascular: Regular rate, Regular Rhythm, Normal S1, Normal S2, No murmurs, PMI Normal, No rub noted, No Gallop Abdomen: Bowel Sounds Present, Soft, Non Tender, Non-Distended, No hernias noted Extremities: No clubbing, No cyanosis, No edema, Capillary Refill Less than 3 Seconds Skin: No rashes, No breakdown Neurological: Cranial nerves II-XII grossly intact, Neuro grossly intact, Sensory exam intact to light touch and pain, - - Patient is able to carry on short conversations without evidence of dysarthria or expressive aphasia Psych/Mental Status: Normal Affect, Appropriate, Alert and oriented to time, place, person, mood and affect Microbiology Past 72 Hours 07/13/20 16:15 Mucosa - Nose SARS-CoV-2 Antigen (Rapid) - Final 07/12/20 09:36 Urine Catheter - Chen Urine Culture - Preliminary Culture exhibits no growth. Laboratory Results 07/13/20 05:40: WBC 9.6, RBC 3.12 L, Hgb 9.5 L, Hct 29.0 L, MCV 92.9, MCH 30.4, MCHC 32.8, RDW Std Deviation 46.5 H, RDW Coeff of Aida 13.7, Plt Count 144 L, MPV 10.9, Immature Gran % (Auto) 0.600, Neut % (Auto) 73.6 H, Lymph % (Auto) 14.6 L, [place] % (Auto) 11.0 H, Eos % (Auto) 0.1, Baso % (Auto) 0.1, Absolute Neuts (auto) 7.1, Absolute Lymphs (auto) 1.40, Nucleated RBC % 0 07/13/20 05:40: Sodium 138, Potassium 4.3, Chloride 107, Carbon Dioxide 27.0, Anion Gap 4 L, BUN 33 H, Creatinine 0.61, Estim Creat Clear Calc 30.41, Est GFR (MDRD) Af Amer 119, Est GFR (MDRD) Non-Af 98, BUN/Creatinine Ratio 53.8 H, Glucose 99, Calcium 9.0 Current Medications Acetaminophen (Acetaminophen 325 Mg Tablet) 650 mg PO Q6H PRN PRN PRN Reason: Pain Score 1-10/Temp > 100.7 F Aspirin (Aspirin 81 Mg Tab.Chew) 81 mg PO DAILY@0800 [facility] Last Admin: 07/13/20 08:45 Dose: Not Given Documented by: Atorvastatin Calcium (Atorvastatin Calcium 80 Mg Tablet) 80 mg PO QHS [facility] Last Admin: 07/12/20 20:29 Dose: 80 mg Documented by: Enoxaparin Sodium (Enoxaparin 40 Mg/0.4 Ml Syringe) 40 mg SC DAILY [facility] Last Admin: 07/13/20 15:46 Dose: Not Given Documented by: Haloperidol Lactate (Haloperidol Lactate 5 Mg/Ml Vial) 1 mg IV Q4H PRN PRN PRN Reason: anxiety agitation Last Admin: 07/12/20 23:48 Dose: 1 mg Documented by: Hydralazine HCl (Hydralazine 20 Mg/Ml Vial) 10 mg IV Q8H PRN PRN PRN Reason: for SBP>160 Lactated Ringer's () 1,000 mls @ 75 mls/hr IV .[id number] IAN Last Admin: 07/13/20 17:45 Dose: 75 mls/hr Documented by: Sodium Chloride () 250 mls @ 15 mls/hr IV .[id number] PRN PRN Reason: Saline Flush Sodium Chloride () 250 mls @ 15 mls/hr IV .[id number] PRN PRN Reason: Additional IVPB Infusion Morphine Sulfate (Morphine 2 Mg/Ml Syringe) 2 mg IV Q3H PRN PRN PRN Reason: Pain Score 6-10 Ondansetron HCl (Ondansetron 4 Mg/2 Ml Vial) 4 mg IV Q8H PRN PRN PRN Reason: NAUSEA/VOMITING Oxycodone HCl (Oxycodone 5 Mg Tablet) 5 mg PO Q6H PRN PRN PRN Reason: Pain Score 6-10 Last Admin: 07/12/20 20:29 Dose: 5 mg Documented by: Senna/Docusate Sodium (Senna/Docusate Sodium 1 Tablet) 2 tablet PO BID PRN PRN PRN Reason: Constipation Sodium Chloride (0.9% Saline Lock 10 Ml Syringe) 10 - 40 ml IV UD PRN PRN Reason: SALINE FLUSH Last Admin: 07/13/20 01:45 Dose: 10 ml Documented by: Zolpidem Tartrate (Zolpidem Tartrate 5 Mg Tablet) 5 mg PO QHS PRN PRN PRN Reason: INSOMNIA Medical Necessity - Tobacco Use Smoking Status: Never smoker Assessment/Plan All Active Problems (Last Updated 07/12/20 @ 11:[address] Jose Gaston MD) Closed right hip fracture (Acute) Altered mental status (Acute) Right arm weakness (Acute) #1 acute intertrochanteric right hip fracture secondary to osteoporosis-patient appears medically stable at this time to undergo surgical repair of this hip fracture, she has had a recent stroke most likely 24 to 48 hours ago, this examiner feels she has minimal neurological deficits at this time. I think it would be unwise to delay surgery at this time and would recommend proceeding with surgery, patient's daughter is aware of the risk of surgery but also the risk of not repairing the patient's hip fracture at this time. 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
[2020-07-13] MEDS: Atorvastatin Calcium 80 MG Tablet PO (22:26)
[2020-07-14] VITALS (23 sets, daily range): BP systolic 93–178; BP diastolic 58–104; PULSE 72–96; RESP 12–18; TEMP 36.2–37.2; O2SAT 94–100; BMI 19.3; BMI 19.4
[2020-07-14] MEDS: Lactated Ringers 1,000 ML 75 ML IV ×2 (05:14→17:47)
[2020-07-14] MEDS: Acetaminophen 325 MG Tablet 650 MG PO (08:21)
--- NOTE | 2020-07-14 09:01 | CASEMGMT ---
Patient did have a Stroke. However, SW did not complete a PHQ 9 as patient is confused. Sandra BALLARD MSW
[2020-07-14] MEDS: amLODIPine 5 MG Tablet PO (10:25)
[2020-07-14] MEDS: amLODIPine 2.5 MG Tablet PO (12:51)
--- NOTE | 2020-07-14 14:30 | CASEMGMT ---
SW received a call from Sherri at [facility]. Patient's daughter spoke with her about patient going there for rehab. Patient's will be going there for rehab. JACQUELINE told her SW will send her information once there is more in the computer. Sandra BALLARD MSW
[2020-07-14] MEDS: Lactated Ringers 1,000 ML 15 ML IV (14:35)
[2020-07-14] MEDS: Cefazolin 1 GM/50 ML BAG IV ×2 (15:41→23:54)
--- NOTE | 2020-07-14 15:45 | RAD_ITS ---
STUDY: X-RAY - PELVIS AND RIGHT HIP REASON FOR EXAM: Female, 85 years old. FX TECHNIQUE: 15 fluoroscopic spot views of the pelvis and hip. COMPARISON: 07/12 2020 FINDINGS: Intertrochanteric fracture right hip. RAD/Hip Min 2 Views (Portable) IMPRESSION: Right hip fracture Electronically Signed: Corby Zhang MD at 21:16 EST , Service support ,
--- NOTE | 2020-07-14 17:03 | OP.PCM_ITS ---
Report of Operation Date of Procedure: 07/14/20 Pre-Operative Diagnosis: displaced, intertrochanteric fracture right hip Post-Operative Diagnosis: same Surgery/Procedure Performed:: ORIF right hip marriage and family social worker: Mayur Keyes Type of Anesthesia:: General Anesthesiologist: Carter Becerra Estimated Blood Loss (mL): 100 cc - Admit VTE Documentation VTE Present on Admission: No VTE Mechan Device Prophylaxis: SCD's, Thigh High GERSON Hose VTE Pharm Prophylaxis ordered?: Yes
[2020-07-14 17:54] LABS: Hematocrit 28.4 % (37-47); Hemoglobin 9.4 g/dL (12.0-15.0); Mean Corp Hgb Conc 33.1 g/dL (32-36); Mean Corpuscular Hgb 30.4 pg (27.0-32.0); Mean Corpuscular Volume 91.9 fL (81-99); Mean Platelet Vol. 11.3 fl (6.2-12.0); Platelet Count 178 K/mm3 (150-450); RBC Distribution Width CV 13.7 % (11.6-14.6); RBC Distribution Width SD 46.1 fl (35.1-43.9); Red Blood Count 3.09 M/mm3 (4.2-5.4); White Blood Count 10.6 K/mm3 (4.4-11.0)
[2020-07-14 18:07] LABS: Anion Gap 7 (5-15); BUN 16 mg/dL (7-18); BUN/Creat Ratio 25.6 RATIO (10-20); Calcium,Total 8.4 mg/dL (8.5-10.1); Chloride 102 mmol/L (98-107); Creatinine, Serum 0.62 mg/dL (0.55-1.02); EST Glomerular Filtration Rate 96 mL/min (>60); Est Glom Filt Rate - Afr Amer 116 mL/min (>60); Estimated Creatinine Clearance 30.41 ml/min; Glucose 103 mg/dL (74-106); Potassium 3.9 mmol/L (3.5-5.1); Sodium Level 136 mmol/L (136-145)
--- NOTE | 2020-07-14 18:22 | PN_ITS ---
Patient Problems: Active and Suspected Problems (Last Updated 07/12/20 @ 11:[address] Jose Gaston MD) Closed right hip fracture (Acute) Altered mental status (Acute) Right arm weakness (Acute) Subjective: Patient was seen and examined today, I talked with her daughter who was in the room at the time of my examination before she went to surgery today. Patient still has some expressive aphasia, she is able to appropriately answer questions with short sentences. The plan is for the patient to go to [facility] for rehab services after discharge from the hospital. Objective: General: Alert, Oriented x3, Cooperative, No apparent distress, Well developed, Well nourished HEENT: Atraumatic, PERRLA, EOMI, Normocephalic Oral: Moist Mucosa Neck: Supple, No JVD, Trachea Midline, Thyroid Normal Size and Texture Lungs: Clear to auscultation, Normal air movement, No rhonchi, No wheeze, No rales Cardiovascular: Regular rate, Regular Rhythm, Normal S1, Normal S2, No murmurs, PMI Normal, No rub noted, No Gallop Abdomen: Bowel Sounds Present, Soft, Non Tender, Non-Distended, No hernias noted Extremities: No clubbing, No cyanosis, No edema, Capillary Refill Less than 3 Seconds Skin: No rashes, No breakdown Neurological: Cranial nerves II-XII grossly intact, Neuro grossly intact, Sensory exam intact to light touch and pain, - - Patient is able to carry on short conversations without evidence of dysarthria or expressive aphasia Psych/Mental Status: Normal Affect, Appropriate, Alert and oriented to time, place, person, mood and affect - Physical Exam Vitals/I&O's: Vital Signs Temp Pulse Resp BP Pulse Ox 97.7 F L 74 16 120/84 H 97 07/14/20 18:15 07/14/20 18:15 07/14/20 18:15 07/14/20 18:15 07/14/20 18:15 Oxygen Delivery Method Room Air Weight: 47.7 kg Body Mass Index (BMI) 19.3 Finger Stick Blood Glucose 115 Intake and Output for Last 24 Hours 07/12/20 07/13/20 07/14/20 23:59 23:59 23:59 Intake Total 100 / 100 2213.75 / 2513.75 2861.25 / 2861.25 Output Total 300 / 450 725 / 965 5 / 1914 Balance -200 / -350 1488.75 / 1548.75 946.25 / 946.25 Microbiology Past 72 Hours 07/12/20 09:36 Urine Catheter - Chen Urine Culture - Final Mixed Gram Positive Organisms 07/13/20 16:15 Mucosa - Nose SARS-CoV-2 Antigen (Rapid) - Final Laboratory Results 07/14/20 17:45: WBC 10.6, RBC 3.09 L, Hgb 9.4 L, Hct 28.4 L, MCV 91.9, MCH 30.4, MCHC 33.1, RDW Std Deviation 46.1 H, RDW Coeff of Aida 13.7, Plt Count 178, MPV 11.3 07/14/20 17:45: Sodium 136, Potassium 3.9, Chloride 102, Carbon Dioxide 27.0, Anion Gap 7, BUN 16, Creatinine 0.62, Estim Creat Clear Calc 30.41, Est GFR (MDRD) Af Amer 116, Est GFR (MDRD) Non-Af 96, BUN/Creatinine Ratio 25.6 H, Glucose 103, Calcium 8.4 L Current Medications Acetaminophen (Acetaminophen 325 Mg Tablet) 650 mg PO Q6H PRN PRN PRN Reason: Pain Score 1-10/Temp > 100.7 F Last Admin: 07/14/20 08:21 Dose: 650 mg Documented by: Aspirin (Aspirin 81 Mg Tab.Chew) 81 mg PO DAILY@0800 [facility] Last Admin: 07/14/20 08:22 Dose: Not Given Documented by: Atorvastatin Calcium (Atorvastatin Calcium 80 Mg Tablet) 80 mg PO QHS [facility] Last Admin: 07/13/20 22:26 Dose: 80 mg Documented by: Enoxaparin Sodium (Enoxaparin 40 Mg/0.4 Ml Syringe) 40 mg SC DAILY [facility] Last Admin: 07/14/20 08:22 Dose: Not Given Documented by: Haloperidol Lactate (Haloperidol Lactate 5 Mg/Ml Vial) 1 mg IV Q4H PRN PRN PRN Reason: anxiety agitation Last Admin: 07/12/20 23:48 Dose: 1 mg Documented by: Hydralazine HCl (Hydralazine 20 Mg/Ml Vial) 10 mg IV Q8H PRN PRN PRN Reason: for SBP>160 Lactated Ringer's () 1,000 mls @ 75 mls/hr IV .[id number] IAN Last Admin: 07/14/20 17:47 Dose: 75 mls/hr Documented by: Sodium Chloride () 250 mls @ 15 mls/hr IV .[id number] PRN PRN Reason: Saline Flush Sodium Chloride () 250 mls @ 15 mls/hr IV .[id number] PRN PRN Reason: Additional IVPB Infusion Cefazolin Sodium () 1 gm in 50 mls @ 150 mls/hr IV Q8H [facility] Stop: 07/15/20 08:19 Morphine Sulfate (Morphine 2 Mg/Ml Syringe) 2 mg IV Q3H PRN PRN PRN Reason: Pain Score 6-10 Ondansetron HCl (Ondansetron 4 Mg/2 Ml Vial) 4 mg IV Q8H PRN PRN PRN Reason: NAUSEA/VOMITING Oxycodone HCl (Oxycodone 5 Mg Tablet) 5 mg PO Q6H PRN PRN PRN Reason: Pain Score 6-10 Last Admin: 07/12/20 20:29 Dose: 5 mg Documented by: Senna/Docusate Sodium (Senna/Docusate Sodium 1 Tablet) 2 tablet PO BID PRN PRN PRN Reason: Constipation Sodium Chloride (0.9% Saline Lock 10 Ml Syringe) 10 - 40 ml IV UD PRN PRN Reason: SALINE FLUSH Last Admin: 07/13/20 01:45 Dose: 10 ml Documented by: Zolpidem Tartrate (Zolpidem Tartrate 5 Mg Tablet) 5 mg PO QHS PRN PRN PRN Reason: INSOMNIA Medical Necessity - Tobacco Use Smoking Status: Never smoker Assessment/Plan All Active Problems (Last Updated 07/12/20 @ 11:[address] 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
[2020-07-14] MEDS: Lactated Ringers 500 ML 999 ML IV (23:19)
[2020-07-14] MEDS: Lactated Ringers 1,000 ML 125 ML IV (23:54)
[2020-07-15] VITALS (13 sets, daily range): BP systolic 98–126; BP diastolic 60–75; PULSE 75–105; RESP 16–18; TEMP 36.6–37.2; O2SAT 92–97; BMI 19.4
[2020-07-15] MEDS: Lactated Ringers 1,000 ML 125 ML IV ×3 (06:56→23:57)
[2020-07-15] MEDS: Cefazolin 1 GM/50 ML BAG IV (10:04)
--- NOTE | 2020-07-15 10:04 | CASEMGMT ---
JACQUELINE faxed over clinical information to [facility] JACQUELINE will send PT/OT evaluations once they are in the computer so [facility] can start the pre-cert. Plan: [facility] pending insurance approval. Sandra BALLARD MSW
[2020-07-15] MEDS: Aspirin 81 MG TAB.CHEW PO (10:08)
[2020-07-15] MEDS: Clopidogrel Bisulfate 75 MG Tablet PO (10:08)
[2020-07-15] MEDS: Enoxaparin 40 MG/0.4 ML Syringe SC (10:09)
--- NOTE | 2020-07-15 12:13 | PCM.PN.ORT ---
Patient Problems: Active and Suspected Problems (Last Updated 07/12/20 @ 11:[address] Jose Gaston MD) Closed right hip fracture (Acute) Altered mental status (Acute) Right arm weakness (Acute) Subjective: Patient sitting up in bed awake. Patient is eating with the assistance of her nurse. Patient still remains confused to person time and place. Patient complains of no pain at this time. Patient denies chest pain, shortness of breath, calf pain, nausea vomiting. Patient has no other complaints at this time. Objective: She is sitting up in bed. Dressing is clean dry intact. Vital signs and labs were all reviewed noted in the medical record. Patient is afebrile. Strong distal pulses to the posterior tibial dorsalis pedis of the right operative leg. Patient had a difficult time comprehending simple commands of moving the lower extremities. Patient did have motion of the bilateral feet and ankle. Patient is in no respiratory distress. - Physical Exam Vitals/I&O's: Vital Signs Temp Pulse Resp BP Pulse Ox 98.2 F 88 18 126/75 H 93 07/15/20 09:15 07/15/20 09:15 07/15/20 09:15 07/15/20 09:15 07/15/20 09:15 Oxygen Delivery Method Room Air Weight: 47.7 kg Body Mass Index (BMI) 19.3 Finger Stick Blood Glucose 115 Intake and Output for Last 24 Hours 07/13/20 07/14/20 07/15/20 23:59 23:59 23:59 Intake Total 2213.75 / 2513.75 3870.00 / 3870.00 979.17 / 979.17 Output Total 725 / 965 2065 / 2065 100 / 100 Balance 1488.75 / 1548.75 1805.00 / 1805.00 879.17 / 879.17 General: Alert, Cooperative, Confused, Disoriented Oral: Moist Mucosa Skin: No rashes Neurological: Cranial nerves II-XII grossly intact Microbiology Past 72 Hours 07/12/20 09:36 Urine Catheter - Chen Urine Culture - Final Mixed Gram Positive Organisms 07/13/20 16:15 Mucosa - Nose SARS-CoV-2 Antigen (Rapid) - Final Laboratory Results 07/14/20 17:45: WBC 10.6, RBC 3.09 L, Hgb 9.4 L, Hct 28.4 L, MCV 91.9, MCH 30.4, MCHC 33.1, RDW Std Deviation 46.1 H, RDW Coeff of Aida 13.7, Plt Count 178, MPV 11.3 07/14/20 17:45: Sodium 136, Potassium 3.9, Chloride 102, Carbon Dioxide 27.0, Anion Gap 7, BUN 16, Creatinine 0.62, Estim Creat Clear Calc 30.41, Est GFR (MDRD) Af Amer 116, Est GFR (MDRD) Non-Af 96, BUN/Creatinine Ratio 25.6 H, Glucose 103, Calcium 8.4 L Current Medications Acetaminophen (Acetaminophen 325 Mg Tablet) 650 mg PO Q6H PRN PRN PRN Reason: Pain Score 1-10/Temp > 100.7 F Last Admin: 07/14/20 08:21 Dose: 650 mg Documented by: Aspirin (Aspirin 81 Mg Tab.Chew) 81 mg PO DAILY@0800 [facility] Last Admin: 07/15/20 10:08 Dose: 81 mg Documented by: Atorvastatin Calcium (Atorvastatin Calcium 80 Mg Tablet) 80 mg PO QHS [facility] Last Admin: 07/14/20 22:36 Dose: Not Given Documented by: Clopidogrel Bisulfate (Clopidogrel Bisulfate 75 Mg Tablet) 75 mg PO DAILY [facility] Last Admin: 07/15/20 10:08 Dose: 75 mg Documented by: Enoxaparin Sodium (Enoxaparin 40 Mg/0.4 Ml Syringe) 40 mg SC DAILY [facility] Last Admin: 07/15/20 10:09 Dose: 40 mg Documented by: Hydralazine HCl (Hydralazine 20 Mg/Ml Vial) 10 mg IV Q8H PRN PRN PRN Reason: for SBP>160 Sodium Chloride () 250 mls @ 15 mls/hr IV .[id number] PRN PRN Reason: Saline Flush Sodium Chloride () 250 mls @ 15 mls/hr IV .[id number] PRN PRN Reason: Additional IVPB Infusion Lactated Ringer's () 1,000 mls @ 125 mls/hr IV .Q8H [facility] Last Admin: 07/15/20 06:56 Dose: 125 mls/hr Documented by: Morphine Sulfate (Morphine 2 Mg/Ml Syringe) 2 mg IV Q3H PRN PRN PRN Reason: Pain Score 6-10 Ondansetron HCl (Ondansetron 4 Mg/2 Ml Vial) 4 mg IV Q8H PRN PRN PRN Reason: NAUSEA/VOMITING Oxycodone HCl (Oxycodone 5 Mg Tablet) 5 mg PO Q6H PRN PRN PRN Reason: Pain Score 6-10 Last Admin: 07/12/20 20:29 Dose: 5 mg Documented by: Senna/Docusate Sodium (Senna/Docusate Sodium 1 Tablet) 2 tablet PO BID PRN PRN PRN Reason: Constipation Sodium Chloride (0.9% Saline Lock 10 Ml Syringe) 10 - 40 ml IV UD PRN PRN Reason: SALINE FLUSH Last Admin: 07/13/20 01:45 Dose: 10 ml Documented by: Zolpidem Tartrate (Zolpidem Tartrate 5 Mg Tablet) 5 mg PO QHS PRN PRN PRN Reason: INSOMNIA Medical Necessity - Tobacco Use Smoking Status: Never smoker Assessment/Plan All Active Problems (Last Updated 07/12/20 @ 11:[address] Jose Gaston MD) Closed right hip fracture (Acute) Altered mental status (Acute) Right arm weakness (Acute) Impression: Right hip displaced intertrochanteric hip fracture Plan 1. Continue all pain medications as prescribed 2. Ice to the right hip. 3. Continue physical therapy with weightbearing as tolerated with walker 4. Continue anticoagulation as directed by medicine 5. Discharge to [facility] when cleared by medicine 6. Patient can shower 07/19/2020 7. Remove hunter 07/28/2020 8. Follow-up with Dr. Mcginnis in 2 weeks. Call office for appointment.
--- NOTE | 2020-07-15 14:40 | CASEMGMT ---
JACQUELINE received a call from [facility] and they can take patient. JACQUELINE told her that SW will fax PT/OT evaluations once they are in the computer. Sandra BALLARD MSW
--- NOTE | 2020-07-15 15:33 | CASEMGMT ---
JACQUELINE faxed PT/OT/ST to [facility]. JACQUELINE also called Sherri at [facility] and let her know this information. Plan: [facility] pending insurance approval. Sandra BALLARD MSW
--- NOTE | 2020-07-15 18:07 | PN_ITS ---
Patient Problems: Active and Suspected Problems (Last Updated 07/12/20 @ 11:[address] Jose Gaston MD) Closed right hip fracture (Acute) Altered mental status (Acute) Right arm weakness (Acute) Subjective: Patient was seen and examined today, I noted that her neurological condition had worsened from yesterday-her speech was not as clear and fluent today, also she was noted to have right-sided weakness which is new compared with yesterday. I still think this is probably secondary to her strokes noted on her MRI on 2020 and not due to new ones. I started the patient on Plavix today in addition to her aspirin, we are currently awaiting approval for transfer to [facility] for rehab services. - Physical Exam Vitals/I&O's: Vital Signs Temp Pulse Resp BP Pulse Ox 98.9 F 88 18 106/62 94 07/15/20 17:00 07/15/20 17:00 07/15/20 17:00 07/15/20 17:00 07/15/20 17:00 Oxygen Delivery Method Room Air Weight: 47.7 kg Body Mass Index (BMI) 19.3 Finger Stick Blood Glucose 115 Intake and Output for Last 24 Hours 07/13/20 07/14/20 07/15/20 23:59 23:59 23:59 Intake Total 2213.75 / 2513.75 3870.00 / 3870.00 2199.17 / 2199.17 Output Total 725 / 965 2065 / 2065 550 / 550 Balance 1488.75 / 1548.75 1805.00 / 1805.00 1649.17 / 1649.17 General: Alert, Oriented x3, Cooperative, No apparent distress, Well developed HEENT: Atraumatic, PERRLA, EOMI, Normocephalic Oral: Moist Mucosa Neck: Supple, No JVD, Trachea Midline, Thyroid Normal Size and Texture Lungs: Clear to auscultation, Normal air movement, No rhonchi, No wheeze, No rales Cardiovascular: Regular rate, Regular Rhythm, Normal S1, Normal S2, No murmurs, PMI Normal, No rub noted, No Gallop Abdomen: Bowel Sounds Present, Soft, Non Tender, Non-Distended Extremities: No clubbing, No cyanosis, Capillary Refill Less than 3 Seconds Skin: No rashes, No breakdown Neurological: Cranial nerves II-XII grossly intact, - - There is generalized weakness noted of the right upper and lower extremities with decreased panel beater strength on the right and decreased ability to flex and extend the right upper and lower extremities. Patient has evidence of expressive aphasia but is able to answer questions with 1 or 2 words. Psych/Mental Status: Appropriate, Flat Affect Microbiology Past 72 Hours 07/12/20 09:36 Urine Catheter - Chen Urine Culture - Final Mixed Gram Positive Organisms 07/13/20 16:15 Mucosa - Nose SARS-CoV-2 Antigen (Rapid) - Final Laboratory Results 07/14/20 17:45: Sodium 136, Potassium 3.9, Chloride 102, Carbon Dioxide 27.0, Anion Gap 7, BUN 16, Creatinine 0.62, Estim Creat Clear Calc 30.41, Est GFR (MDRD) Af Amer 116, Est GFR (MDRD) Non-Af 96, BUN/Creatinine Ratio 25.6 H, Glucose 103, Calcium 8.4 L Current Medications Acetaminophen (Acetaminophen 325 Mg Tablet) 650 mg PO Q6H PRN PRN PRN Reason: Pain Score 1-10/Temp > 100.7 F Last Admin: 07/14/20 08:21 Dose: 650 mg Documented by: Aspirin (Aspirin 81 Mg Tab.Chew) 81 mg PO DAILY@0800 [facility] Last Admin: 07/15/20 10:08 Dose: 81 mg Documented by: Atorvastatin Calcium (Atorvastatin Calcium 80 Mg Tablet) 80 mg PO QHS [facility] Last Admin: 07/14/20 22:36 Dose: Not Given Documented by: Clopidogrel Bisulfate (Clopidogrel Bisulfate 75 Mg Tablet) 75 mg PO DAILY [facility] Last Admin: 07/15/20 10:08 Dose: 75 mg Documented by: Enoxaparin Sodium (Enoxaparin 40 Mg/0.4 Ml Syringe) 40 mg SC DAILY [facility] Last Admin: 07/15/20 10:09 Dose: 40 mg Documented by: Hydralazine HCl (Hydralazine 20 Mg/Ml Vial) 10 mg IV Q8H PRN PRN PRN Reason: for SBP>160 Sodium Chloride () 250 mls @ 15 mls/hr IV .[id number] PRN PRN Reason: Saline Flush Sodium Chloride () 250 mls @ 15 mls/hr IV .[id number] PRN PRN Reason: Additional IVPB Infusion Lactated Ringer's () 1,000 mls @ 125 mls/hr IV .Q8H IAN Last Admin: 07/15/20 16:32 Dose: 125 mls/hr Documented by: Morphine Sulfate (Morphine 2 Mg/Ml Syringe) 2 mg IV Q3H PRN PRN PRN Reason: Pain Score 6-10 Ondansetron HCl (Ondansetron 4 Mg/2 Ml Vial) 4 mg IV Q8H PRN PRN PRN Reason: NAUSEA/VOMITING Oxycodone HCl (Oxycodone 5 Mg Tablet) 5 mg PO Q6H PRN PRN PRN Reason: Pain Score 6-10 Last Admin: 07/12/20 20:29 Dose: 5 mg Documented by: Senna/Docusate Sodium (Senna/Docusate Sodium 1 Tablet) 2 tablet PO BID PRN PRN PRN Reason: Constipation Sodium Chloride (0.9% Saline Lock 10 Ml Syringe) 10 - 40 ml IV UD PRN PRN Reason: SALINE FLUSH Last Admin: 07/13/20 01:45 Dose: 10 ml Documented by: Zolpidem Tartrate (Zolpidem Tartrate 5 Mg Tablet) 5 mg PO QHS PRN PRN PRN Reason: INSOMNIA Medical Necessity - Tobacco Use Smoking Status: Never smoker Assessment/Plan All Active Problems (Last Updated 07/12/20 @ 11:[address] 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
[2020-07-15] MEDS: Atorvastatin Calcium 80 MG Tablet PO (22:06)
[2020-07-16] VITALS (16 sets, daily range): BP systolic 95–127; BP diastolic 54–85; PULSE 77–106; RESP 16–20; TEMP 36.6–37.8; O2SAT 92–97
[2020-07-16 06:09] LABS: Absolute Lymphocyte Count 0.64 X10^3/uL (0.83-4.51); Absolute Neutrophil Count 8.3 X10^3/uL (2.0-7.7); Basophil# 0.01 X10^3/uL; Basophil% 0.1 % (0-1); Hematocrit 21.7 % (37-47); Lymphocyte # 0.64 X10^3/ul (4.0); Lymphocyte % 6.1 % (19-41); Mean Corp Hgb Conc 32.3 g/dL (32-36); Mean Corpuscular Hgb 30.4 pg (27.0-32.0); Mean Corpuscular Volume 94.3 fL (81-99); Mean Platelet Vol. 11.2 fl (6.2-12.0); Monocyte# 1.31 X10^3/uL; Monocyte% 12.6 % (0-10); NRBC Flagged by Analyzer 0 % (0-5); Neutrophil # 8.33 X10^3/uL (2.7-7.7); Platelet Count 177 K/mm3 (150-450); RBC Distribution Width CV 13.7 % (11.6-14.6); RBC Distribution Width SD 46.8 fl (35.1-43.9); White Blood Count 10.4 K/mm3 (4.4-11.0)
[2020-07-16] MEDS: Enoxaparin 40 MG/0.4 ML Syringe SC (08:27)
[2020-07-16] MEDS: Aspirin 81 MG TAB.CHEW PO (08:27)
[2020-07-16] MEDS: Clopidogrel Bisulfate 75 MG Tablet PO (08:27)
[2020-07-16] MEDS: Lactated Ringers 1,000 ML 125 ML IV ×2 (08:27→23:38)
--- NOTE | 2020-07-16 09:38 | CASEMGMT ---
JACQUELINE received a call from Tracey with [employer]. She wanted to clarify that patient was looking for placement at [facility] and not [facility]. JACQUELINE told her patient is looking for placement at [facility]. She will contact [facility] with the approval. Sandra BALLARD MSW
--- NOTE | 2020-07-16 11:34 | CASEMGMT ---
JACQUELINE received a call from Sherri at [facility] and they received approval. JACQUELINE spoke with physician and patient is getting 2 units of blood and she is not talking. He said he will likely order another MRI and keep her until tomorrow. JACQUELINE called Sherri at [facility] and let her know this information. Plan: [facility] pending patient being medically ready. Pre-cert is good for today and tomorrow. However, if patient does not go Monday we will need another pre-cert. Sandra BALLARD MSW
--- NOTE | 2020-07-16 13:17 | MRI_ITS ---
STUDY: MRI BRAIN WITHOUT CONTRAST REASON FOR EXAM: Female, 85 years old. Hemiparesis, increased weakness, aphasia TECHNIQUE: Standardized multiplanar fat and water weighted pulse sequences were obtained. COMPARISON: MRI brain without contrast. 07/13/2020. FINDINGS: Increased size of diffusion restriction along the left parahippocampus, the left hippocampus, the left lingual gyrus and the left inferior temporal gyrus. The diffusion restriction of the left thalamus is unchanged. These are now visible on the T2 FLAIR sequence. Normal size of the ventricles and extra-axial spaces for the patient''s age. Multiple periventricular white matter T2 FLAIR hyperintensity foci in both cerebral hemispheres are chronic white matter ischemic changes. Normal bilateral basal ganglia. Normal right thalamus. There is no extra-axial fluid accumulation. Normal flow voids within the major intracranial circulation suggesting patency by spin echo criteria. Normal sella turcica, pituitary gland, infundibular stalk, optic chiasm and hypothalamus. Normal tectal plate and pineal gland. Normal midbrain, eliceo and medulla. Normal cerebellum. Normal basal cisterns. Normal bilateral temporal bones. Normal bilateral internal auditory canals. No demonstrated orbital abnormality, within the constraints of a routine brain study. Normal visualized paranasal sinuses. Normal calvarium and skull base. Normal visualized soft tissue structures. Normal visualized upper cervical spine. MRI/Brain without Contrast IMPRESSION: 1. Increasing size of now subacute ischemic infarction along the left parahippocampus, left hippocampus, left lingual gyrus and left inferior temporal gyrus. 2. Subacute ischemic infarction of the left thalamus is unchanged in size. 3. Chronic periventricular white matter ischemic changes in both cerebral hemispheres. Electronically Signed: Remington Boyd MD at 15:15 EST , Service support ,
--- NOTE | 2020-07-16 14:25 | CHAPLAIN ---
Type of Pastoral Visit ___ Initial Visit ___ Follow-up Visit ___ On-call Visit ___ General Patient Visit ___ Spiritual Assessment ___ Family Conference ___ Bereavement ___ Rapid Response ___ Code Blue ___ Other (describe below) Pastoral Care Referral From ___ Patient ___ Family ___ Nurse ___ Physician ___ Management Information Systems Director ___ Shipping Room Helper ___ Other (describe below) Sacrament/Intervention ___ Active listening ___ Anointing ___ Cheondoism ___ Bereavement ___ Communion ___ Jeana exploration ___ ___ Life review ___ Prayer ___ Reconciliation ___ Sacrament of Sick ___ Supportive presence ___ Wedding ___ Other (describe below) Pastoral Comments patient was sleeping and did not arouse to her name; left a calling card
--- NOTE | 2020-07-16 18:01 | PN_ITS ---
Patient Problems: Active and Suspected Problems (Last Updated 07/12/20 @ 11:[address] Jose Gaston MD) Closed right hip fracture (Acute) Altered mental status (Acute) Right arm weakness (Acute) Subjective: Patient was seen and examined today, she exhibits more expressive aphasia today and would not say hello when I asked her to this morning, she is still flaccid on the right side and I decided to repeat her MRI today-the MRI of the brain showed extension of her previous stroke, she is currently on Plavix and aspirin and is able to have oral intake. I talked to the daughter by phone today, it appears that the patient's will not be going to the long term at this time due to a severe infection, he remains in the hospital in [place] at this time. Patient was anemic this morning on her blood count and I gave her 2 units of packed red blood cells, I will repeat her CBC tomorrow. Objective: General: Patient is somnolent at the time of my examination HEENT: Atraumatic, PERRLA, EOMI, Normocephalic Oral: Moist Mucosa Neck: Supple, No JVD, Trachea Midline, Thyroid Normal Size and Texture Lungs: Clear to auscultation, Normal air movement, No rhonchi, No wheeze, No rales Cardiovascular: Regular rate, Regular Rhythm, Normal S1, Normal S2, No murmurs, PMI Normal, No rub noted, No Gallop Abdomen: Bowel Sounds Present, Soft, Non Tender, Non-Distended, No hernias noted Extremities: No clubbing, No cyanosis, No edema, Capillary Refill Less than 3 Seconds Skin: No rashes, No breakdown Neurological: Cranial nerves II-XII grossly intact, patient has right hemiplegia, he does not respond to commands to speak at this time during my examination Psych/Mental Status: Flat affect, patient does not speak - Physical Exam Vitals/I&O's: Vital Signs Temp Pulse Resp BP Pulse Ox 99.1 F 79 18 95/54 L 97 07/16/20 17:02 07/16/20 17:02 07/16/20 17:02 07/16/20 17:02 07/16/20 17:02 Oxygen Delivery Method Room Air Weight: 47.7 kg Body Mass Index (BMI) 19.3 Finger Stick Blood Glucose 115 Intake and Output for Last 24 Hours 07/14/20 07/15/20 07/16/20 23:59 23:59 23:59 Intake Total 3870.00 / 3870.00 3126.25 / 3126.25 1781.25 / 1781.25 Output Total 2065 / 2065 550 / 750 625 / 625 Balance 1805.00 / 1805.00 2576.25 / 2376.25 1156.25 / 1156.25 Microbiology Past 72 Hours 07/16/20 10:00 Mucosa - Nose SARS-CoV-2 Antigen (Rapid) - Final 07/12/20 09:36 Urine Catheter - Chen Urine Culture - Final Mixed Gram Positive Organisms 07/13/20 16:15 Mucosa - Nose SARS-CoV-2 Antigen (Rapid) - Final Laboratory Results 07/16/20 05:55: WBC 10.4, RBC 2.30 L, Hgb 7.0 L, Hct 21.7 L, MCV 94.3, MCH 30.4, MCHC 32.3, RDW Std Deviation 46.8 H, RDW Coeff of Aida 13.7, Plt Count 177, MPV 11.2, Immature Gran % (Auto) 1.200 H, Neut % (Auto) 80.0 H, Lymph % (Auto) 6.1 L , [place] % (Auto) 12.6 H, Eos % (Auto) 0.0, Baso % (Auto) 0.1, Absolute Neuts (auto) 8.3 H, Absolute Lymphs (auto) 0.64 L, Nucleated RBC % 0 07/16/20 09:10: Blood Type O POSITIVE, Antibody Screen NEGATIVE, Crossmatch See Detail Current Medications Acetaminophen (Acetaminophen 325 Mg Tablet) 650 mg PO Q6H PRN PRN PRN Reason: Pain Score 1-10/Temp > 100.7 F Last Admin: 07/14/20 08:21 Dose: 650 mg Documented by: Aspirin (Aspirin 81 Mg Tab.Chew) 81 mg PO DAILY@0800 [facility] Last Admin: 07/16/20 08:27 Dose: 81 mg Documented by: Atorvastatin Calcium (Atorvastatin Calcium 80 Mg Tablet) 80 mg PO QHS [facility] Last Admin: 07/15/20 22:06 Dose: 80 mg Documented by: Clopidogrel Bisulfate (Clopidogrel Bisulfate 75 Mg Tablet) 75 mg PO DAILY [facility] Last Admin: 07/16/20 08:27 Dose: 75 mg Documented by: Enoxaparin Sodium (Enoxaparin 40 Mg/0.4 Ml Syringe) 40 mg SC DAILY [facility] Last Admin: 07/16/20 08:27 Dose: 40 mg Documented by: Hydralazine HCl (Hydralazine 20 Mg/Ml Vial) 10 mg IV Q8H PRN PRN PRN Reason: for SBP>160 Sodium Chloride () 250 mls @ 15 mls/hr IV .[id number] PRN PRN Reason: Saline Flush Sodium Chloride () 250 mls @ 15 mls/hr IV .[id number] PRN PRN Reason: Additional IVPB Infusion Lactated Ringer's () 1,000 mls @ 125 mls/hr IV .Q8H [facility] Last Infusion: 07/16/20 11:30 Dose: 0 mls/hr Documented by: Ondansetron HCl (Ondansetron 4 Mg/2 Ml Vial) 4 mg IV Q8H PRN PRN PRN Reason: NAUSEA/VOMITING Senna/Docusate Sodium (Senna/Docusate Sodium 1 Tablet) 2 tablet PO BID PRN PRN PRN Reason: Constipation Sodium Chloride (0.9% Saline Lock 10 Ml Syringe) 10 - 40 ml IV UD PRN PRN Reason: SALINE FLUSH Last Admin: 07/13/20 01:45 Dose: 10 ml Documented by: Zolpidem Tartrate (Zolpidem Tartrate 5 Mg Tablet) 5 mg PO QHS PRN PRN PRN Reason: INSOMNIA Medical Necessity - Tobacco Use Smoking Status: Smoker, status unknown Assessment/Plan All Active Problems (Last Updated 07/12/20 @ 11:[address] 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
[2020-07-16] MEDS: Atorvastatin Calcium 80 MG Tablet PO (20:16)
[2020-07-17] VITALS (7 sets, daily range): BP systolic 102–108; BP diastolic 55–72; PULSE 72–90; RESP 18–20; TEMP 37.2–37.4; O2SAT 93–94
[2020-07-17] MEDS: Lactated Ringers 1,000 ML 125 ML IV (06:38)
--- NOTE | 2020-07-17 09:16 | PCM.PN.ORT ---
Patient Problems: Active and Suspected Problems (Last Updated 07/12/20 @ 11:[address] Jose Gaston MD) Closed right hip fracture (Acute) Altered mental status (Acute) Right arm weakness (Acute) Subjective: Pt. with expressive aphasia secondary to CVA, therefore can not express herself. - Physical Exam Vitals/I&O's: Vital Signs Temp Pulse Resp BP Pulse Ox 99 F 87 20 H 108/72 93 07/17/20 02:30 07/17/20 07:00 07/17/20 02:30 07/17/20 02:30 07/17/20 02:30 Oxygen Delivery Method Room Air Weight: 105 lb 2.568 oz Body Mass Index (BMI) 19.3 Finger Stick Blood Glucose 115 Intake and Output for Last 24 Hours 07/15/20 07/16/20 07/17/20 23:59 23:59 23:59 Intake Total 3126.25 / 3126.25 2791.67 / 2791.67 1095 / 1095 Output Total 550 / 750 625 / 625 475 / 475 Balance 2576.25 / 2376.25 2166.67 / 2166.67 620 / 620 General: Alert, Cooperative, No apparent distress Skin: Incision - stable Microbiology Past 72 Hours 07/16/20 10:00 Mucosa - Nose SARS-CoV-2 Antigen (Rapid) - Final 07/12/20 09:36 Urine Catheter - Chen Urine Culture - Final Mixed Gram Positive Organisms Laboratory Results 07/16/20 09:10: Blood Type O POSITIVE, Antibody Screen NEGATIVE, Crossmatch See Detail 07/17/20 06:22: Hgb 9.0 L, Hct 27.0 L Current Medications Acetaminophen (Acetaminophen 325 Mg Tablet) 650 mg PO Q6H PRN PRN PRN Reason: Pain Score 1-10/Temp > 100.7 F Last Admin: 07/14/20 08:21 Dose: 650 mg Documented by: Aspirin (Aspirin 81 Mg Tab.Chew) 81 mg PO DAILY@0800 [facility] Last Admin: 07/16/20 08:27 Dose: 81 mg Documented by: Atorvastatin Calcium (Atorvastatin Calcium 80 Mg Tablet) 80 mg PO QHS [facility] Last Admin: 07/16/20 20:16 Dose: 80 mg Documented by: Clopidogrel Bisulfate (Clopidogrel Bisulfate 75 Mg Tablet) 75 mg PO DAILY [facility] Last Admin: 07/16/20 08:27 Dose: 75 mg Documented by: Enoxaparin Sodium (Enoxaparin 40 Mg/0.4 Ml Syringe) 40 mg SC DAILY [facility] Last Admin: 07/16/20 08:27 Dose: 40 mg Documented by: Hydralazine HCl (Hydralazine 20 Mg/Ml Vial) 10 mg IV Q8H PRN PRN PRN Reason: for SBP>160 Sodium Chloride () 250 mls @ 15 mls/hr IV .[id number] PRN PRN Reason: Saline Flush Sodium Chloride () 250 mls @ 15 mls/hr IV .[id number] PRN PRN Reason: Additional IVPB Infusion Lactated Ringer's () 1,000 mls @ 125 mls/hr IV .Q8H [facility] Last Admin: 07/17/20 06:38 Dose: 125 mls/hr Documented by: Ondansetron HCl (Ondansetron 4 Mg/2 Ml Vial) 4 mg IV Q8H PRN PRN PRN Reason: NAUSEA/VOMITING Senna/Docusate Sodium (Senna/Docusate Sodium 1 Tablet) 2 tablet PO BID PRN PRN PRN Reason: Constipation Sodium Chloride (0.9% Saline Lock 10 Ml Syringe) 10 - 40 ml IV UD PRN PRN Reason: SALINE FLUSH Last Admin: 07/13/20 01:45 Dose: 10 ml Documented by: Zolpidem Tartrate (Zolpidem Tartrate 5 Mg Tablet) 5 mg PO QHS PRN PRN PRN Reason: INSOMNIA Medical Necessity - Tobacco Use Smoking Status: Smoker, status unknown Assessment/Plan All Active Problems (Last Updated 07/12/20 @ 11:[address] Jose Gaston MD) Closed right hip fracture (Acute) Altered mental status (Acute) Right arm weakness (Acute) s/p ORIF right intertrochanteric hip fracture See note from 07/15 Ortho off case for now. Will re-evaluate at your request.
--- NOTE | 2020-07-17 09:26 | PCM.TXEXTCAR ---
- Diet 07/15/20 10:29 Diet: Regular - General Food consistency:: Pureed Liquid Consistency:: Hypoluxo/Mildly Thick Dietary Modifications:: Gluten Free Type of Dietary Supplement:: Ensure Pudding/Magic Cup Is pt able to select menu?: No Diet Comments: TOTAL FEED, medications crushed in applesauce - Routine Orders/Code Status Routine Lab Work: CBC - in one week - Wound(s) RT HIP AND THIGH Wound Type: Surgical Incision - Therapies Weight Bearing: Weight bearing as tolerated - with walker Extremity Affected:: Right Lower Physical Therapy: Eval and Treat Occupational Therapy: Eval and Treat Speech Therapy: Eval and Treat - Problem/Diagnosis (1) Ischemic stroke Status: Acute Comment: left temporal lobe including hippocampus, parahippocampus, left lingual gyrus, and left inferior temporal gyrus, left thalamus (2) Blood loss anemia Status: Acute (3) Closed right hip fracture Status: Acute Comment: ORIF 07/14/20-gamma nail (4) Hyperlipidemia Status: Chronic - Allergies/Procedures Done in Hospital Allergies/Adverse Reactions: Allergies gluten Adverse Reaction (Verified 07/12/20 08:57) Nausea Procedures: 2-D Echocardiogram, Blood transfusion - Type of Care/Length of Stay Estimated LOS: Convalescent Care Less Than 30 days Type of Care Needed: Skilled Rehab Potential: Good Prognosis: Good - Additional Orders/Day of Discharge Additional Orders: shower starting 07/19/20, remove hunter 07/28/20, follow up with Dr. Mcginnis in two weeks (Ortho) H&P will serve as current which was dated: 07/12/20 Day of Discharge: 07/17/20 - Dietary and Speech Recommendations Dietitian Recommendations/Changes: Continue regular diet, consistency per DIRECTOR OF DIRECT MARKETING. Continue gluten free diet order, magic cup or ensure pudding w/ meals. Speech Linguistic Eval Summary: Oriented to name, , and age spontaneously, then verbalizing the [facility] building when asked about her current location. Did indep verbalize June for current month. Pt presents with deficits in both expressive and receptive language. Able to answer simple questions but did demonstrate some neologisms (brief, unintelligible episodes of jargon) as well as instances of anomia. Automatic speech intact. 3/3 promptly on confrontation naming task. Followed 1-2 step kinesthetic commands 3/4. Pt breathing when told to swallow, arguing with this DIRECTOR [employer] and stating I am before visual model improved comprehension. Pt will continue to benefit from further evaluation of cognitive-linguistic functioning. - Follow Up Care Primary Care Physician: Rios Irwin MD [Primary Care Provider] -
--- NOTE | 2020-07-17 09:44 | CT_ITS ---
STUDY: CTA HEAD AND NECK WITH CONTRAST REASON FOR EXAM: Female, 85 years old. Left EMERGENCY SERVICES DIRECTOR territory ischemic infarction. RADIATION DOSAGE (If Supplied By Facility): CTDIvol = ( 24.23 ) mGy, DLP = ( 1206.03 ) mGycm TECHNIQUE: CT angiography was performed with a multi-detector CT scanner. Data acquisition was obtained from the skull base through the vertex following intravenous administration of 100 mL of ISOVUE-370. MIP images were reconstructed from the axial data set. Post-processing of the angiographic images was performed, with multiplanar reformation and 3D reconstruction. Individualized dose optimization techniques were used for this CT. COMPARISON: CTA head 07/20/2017. MRA neck 11/14/2014. FINDINGS: Normal bilateral petrous carotid arteries. Nonocclusive calcified plaques along the right cavernous carotid artery with a normal supraclinoid bifurcation. Nonocclusive calcified plaques along the left cavernous carotid artery with a normal supraclinoid bifurcation. Normal right A1 segment of the anterior cerebral artery. Normal left A1 segment of the anterior cerebral artery. Normal intact anterior communicating artery (ACOM). Normal bilateral A2 segments of the anterior cerebral arteries. Normal right M1 and M2 segments of the middle cerebral arteries, with a normal M1 bifurcation. Normal left M1 and M2 segments of the middle cerebral arteries, with a normal M1 bifurcation. No visible right posterior communicating artery (PCOM). No visible left posterior communicating artery (PCOM). Normal bilateral vertebral arteries. Normal basilar artery with a normal basilar bifurcation. The visualized bilateral superior cerebellar (SCA) arteries are normal. Complete occlusion of the left P2 segment. Normal bilateral P1, right P2 and right P3 segments of the posterior cerebral arteries. There is no demonstrated aneurysm of the [place] of [place]. Large left EMERGENCY SERVICES DIRECTOR territory ischemic infarction. AORTIC ARCH: Normal visualized aortic arch. Normal origins of the brachiocephalic, left common carotid, and left subclavian arteries. RIGHT CAROTID ARTERIES: Normal left common carotid artery (CCA). Minimal nonocclusive calcified plaques in the left internal carotid bulb. Normal origin of the left internal carotid (ICA) artery without a hemodynamically significant stenosis. Normal visualized cervical portion of the left internal carotid artery. Normal origin of the left external carotid artery (ECA). LEFT CAROTID ARTERIES: Large calcified plaques encasing the left distal common carotid artery and causing 64% stenosis. This extends to the origin of the left external carotid artery but not the origin of the left internal carotid artery bulb. Normal left internal carotid bulb. Widely patent origin of the left internal carotid (ICA) artery without a hemodynamically significant stenosis. Normal visualized cervical portion of the right internal carotid artery. High-grade stenosis of the origin of the left external carotid artery (ECA) due to the extensive calcified plaques of the distal common carotid artery extending to the origin of the left external carotid artery. VERTEBRAL ARTERIES: Normal bilateral vertebral arteries. CT/CTA Head AND Neck W/ Contrast IMPRESSION: 1. Complete occlusion of the P2 segment of the left posterior cerebral artery accounting for the large cortical based ischemic infarction of the left EMERGENCY SERVICES DIRECTOR territory. 2. No other vaso-occlusive disease of the anterior and posterior intracranial circulation. 3. 64% stenosis of the left distal common carotid artery due to large calcified plaques extending to the origin of the left external carotid artery but does not extend to the origin of the left internal carotid artery bulb. The left internal carotid bulb and the rest of the left cervical internal carotid artery are widely patent. 4. Widely patent right common carotid artery, right internal and external carotid arteries and bilateral vertebral arteries. 5. Normal aortic arch and origins of the great vessels. Electronically Signed: Remington Boyd MD at 11:09 EST , Service support ,
[2020-07-17] MEDS: Clopidogrel Bisulfate 75 MG Tablet PO (10:30)
[2020-07-17] MEDS: Enoxaparin 40 MG/0.4 ML Syringe SC (10:31)
[2020-07-17] MEDS: Aspirin 81 MG TAB.CHEW PO (10:31)
--- NOTE | 2020-07-17 11:26 | PHA.DC.MR ---
Pharmacy Service has performed discharge medication reconciliation for this patient upon transfer to [facility]. The patient's discharge medication list was reviewed for discrepancies and discrepancies were resolved. Home Medications Levothyroxine [Synthroid] 50 mcg PO DAILY 11/14/14 Acetaminophen [Tylenol Tablet] 650 mg PO Q6H PRN PRN tab 07/17/20 Aspirin [Aspirin, Baby] 81 mg PO DAILY@0800 tab.chew 07/17/20 Atorvastatin Calcium [Lipitor] 80 mg PO QHS tab 07/17/20 Clopidogrel Bisulfate [Plavix] 75 mg PO DAILY tab 07/17/20 Enoxaparin Sodium [Lovenox] 30 mg SQ DAILY 30 Days #30 syringe 07/17/20 Escitalopram Oxalate [Lexapro] 10 mg PO DAILY #1 tab 07/17/20 Senna/Docusate Sodium [Senokot-S] 2 tab PO BID PRN PRN tab 07/17/20
--- NOTE | 2020-07-17 11:31 | CASEMGMT ---
Addendum entered by Sandra Martinez 07/17/20 14:11: SW received a return call from patient's daughter and she is on her way to see patient and should be here in about 10 min. JACQUELINE arranged transport for 1630 via cot. JACQUELINE notified RN, construction secretary, and Sherri at [facility]. JACQUELINE will notify patient's daughter when she gets here. Plan: d/c to [facility] under skilled level of care on a convalescent stay. [facility] transported via cot. Sandra LOBO Addendum entered by Sandra Martinez 07/17/20 13:49: After numerous attempts SW finally did get patient's daughter's voice mail. JACQUELINE left her a message letting her know patient is ready to go to [facility], but SW wanted to know if she wanted to visit before she leaves. JACQUELINE asked her to call JACQUELINE back parisa. Sandra LOBO Original Note: Patient is ready for discharge to [facility]. JACQUELINE called Sherri and let her know. JACQUELINE also faxed orders as well as negative COVID test result. JACQUELINE called patient's daughter Lisseth to see if she wanted to visit patient before she left. She was not available and her voice mail box was full. JACQUELINE will try again. Sandra LOBO
--- NOTE | 2020-07-17 14:19 | NURSING ---
Report called to nurse Lay for pt d/c to [facility].
--- NOTE | 2020-07-17 18:46 | PCM.DC.SUM ---
Discharge Date and Diagnosis - Problem List Patient Problems: Active and Suspected Problems (Last Updated 07/12/20 @ 11:[address] Jose Gaston MD) Ischemic stroke (Acute) left temporal lobe including hippocampus, parahippocampus, left lingual gyrus, and left inferior temporal gyrus, left thalamus Blood loss anemia (Acute) Closed right hip fracture (Acute) ORIF 07/14/20-gamma nail Altered mental status (Acute) Right arm weakness (Acute) Date of Admission: 07/12/20 Date of Discharge: 07/17/20 - Primary Discharge Diagnosis Acute Problems: Active Problems (Last Updated 07/12/20 @ 11:[address] Jose Gaston MD) #1 acute intertrochanteric right hip fracture secondary to osteoporosis #2 acute/subacute CVA medial left temporal lobe including hippocampus (with extension noted on today's MRI of the brain) and lateral aspect of the left thalamus-secondary to occlusion of the left posterior cerebral artery #3 hyperlipidemia #4 essential hypertension #5 acute blood loss anemia as an expected consequence of acute hip fracture #6 moderate left distal common carotid stenosis - Secondary Discharge Diagnosis Chronic Problems: Chronic Problems (Last Updated 07/12/20 @ 11:[address] Jose Gaston MD) Hypertension (Chronic) Hyperlipidemia (Chronic) Carotid stenosis, left (Chronic) Hospital Course and Treatment Operations: None Summary of Care Provided: The patient is a 85 year old F who was seen in the emergency room at [facility] after being found down at home and exhibiting confusion. She was brought in by squad. Patient was complaining of right hip pain, she was living alone due to her being hospitalized. Work-up in the ER included an EKG which showed a sinus rhythm 72, there were inferior and lateral precordial T wave inversions which were similar to prior EKGs. Lab studies were unremarkable, urinalysis was not abnormal, CT of the head showed chronic changes. Chest x-ray showed no acute process right hip x-ray showed an intertrochanteric fracture. Patient was noted to have some right arm weakness on examination. Patient was admitted to PCU, there was a suspicion of acute stroke and MRI was ordered and was positive for an acute/subacute ischemic stroke to the medial left temporal lobe including the hippocampus and lateral aspect of the left thalamus. Patient was seen in consultation by orthopedic surgery, her care was discussed with her family and it was decided that she would undergo repair of her hip fracture-patient also consented to this. Following her surgery, patient was noted to have neurological deterioration from her prior symptoms of stroke, it was felt that she probably had another stroke or an extension of her previous stroke, she had been started on Plavix and aspirin as well as a statin. Patient was seen in consultation by PT OT and speech therapy. Patient was also noted to have a drop in her hemoglobin was given 2 units of packed red blood cells, this was felt to be secondary to acute bleeding as an expected consequence from right hip fracture. On 07/17/2020, patient underwent a CT of her head and neck which showed no severe carotid occlusive disease but did show an occlusion of the patient's left posterior cerebral artery. On 07/17/2020, patient was seen and examined:General: Patient is somnolent at the time of my examination HEENT: Atraumatic, PERRLA, EOMI, Normocephalic Oral: Moist Mucosa Neck: Supple, No JVD, Trachea Midline, Thyroid Normal Size and Texture Lungs: Clear to auscultation, Normal air movement, No rhonchi, No wheeze, No rales Cardiovascular: Regular rate, Regular Rhythm, Normal S1, Normal S2, No murmurs, PMI Normal, No rub noted, No Gallop Abdomen: Bowel Sounds Present, Soft, Non Tender, Non-Distended, No hernias noted Extremities: No clubbing, No cyanosis, No edema, Capillary Refill Less than 3 Seconds Skin: No rashes, No breakdown Neurological: Cranial nerves II-XII grossly intact, patient has right hemiplegia, patient is able to speak today and follow some commands Psych/Mental Status: Flat affect On 07/17/2020, patient was seen and examined and felt to be in stable condition for transfer to an extended care facility for inpatient rehab services. Prognosis was guarded due to the patient's advanced age and severe stroke. Patient Problems: Active and Suspected Problems (Last Updated 07/12/20 @ 11:[address] Jose Gaston MD) Ischemic stroke (Acute) left temporal lobe including hippocampus, parahippocampus, left lingual gyrus, and left inferior temporal gyrus, left thalamus Blood loss anemia (Acute) Closed right hip fracture (Acute) ORIF 07/14/20-gamma nail Altered mental status (Acute) Right arm weakness (Acute) - Physical Exam Vitals/I&O's: Vital Signs Temp Pulse Resp BP Pulse Ox 99.4 F H 72 18 102/55 L 94 07/17/20 11:26 07/17/20 11:26 07/17/20 11:26 07/17/20 11:07/17/20 11:26 Oxygen Delivery Method Room Air Weight: 47.7 kg Body Mass Index (BMI) 19.3 Finger Stick Blood Glucose 115 Intake and Output for Last 24 Hours 07/15/20 07/16/20 07/17/20 23:59 23:59 23:59 Intake Total 3126.25 / 3126.25 2791.67 / 2791.67 2155.00 / 2155.00 Output Total 550 / 750 625 / 625 475 / 475 Balance 2576.25 / 2376.25 2166.67 / 2166.67 1680.00 / 1680.00 Microbiology Past 72 Hours 07/16/20 10:00 Mucosa - Nose SARS-CoV-2 Antigen (Rapid) - Final Laboratory Results 07/17/20 06:22: Hgb 9.0 L, Hct 27.0 L Home Medications: Medications to take at Discharge Levothyroxine [Synthroid] 50 mcg PO DAILY 11/14/14 Acetaminophen [Tylenol Tablet] 650 mg PO Q6H PRN PRN tab 07/17/20 Aspirin [Aspirin, Baby] 81 mg PO DAILY@0800 tab.chew 07/17/20 Atorvastatin Calcium [Lipitor] 80 mg PO QHS tab 07/17/20 Clopidogrel Bisulfate [Plavix] 75 mg PO DAILY tab 07/17/20 Enoxaparin Sodium [Lovenox] 30 mg SQ DAILY 30 Days #30 syringe 07/17/20 Escitalopram Oxalate [Lexapro] 10 mg PO DAILY #1 tab 07/17/20 Senna/Docusate Sodium [Senokot-S] 2 tab PO BID PRN PRN tab 07/17/20 Following Prescriptions Were Given to Patient: Escitalopram Oxalate [Lexapro] 10 mg PO DAILY #1 tab Enoxaparin Sodium [Lovenox] 30 mg SQ DAILY 30 Days #30 syringe Primary Care Physician: Rios Irwin MD [Primary Care Provider] - Disposition: Half-Way facility Minutes spent on discharge:: 32 Patient Condition:: Stable Medical Necessity - Tobacco Use Smoking Status: Smoker, status unknown Meaningful Use Info Meaningful Use Diagnoses (Choose all that apply): Ischemic CVA - CVA Therapy Assessed for PT,OT and/or ST?: Yes - Ischemic Stroke Antithrombotic order at d/c?: Yes Dx of Atrial fib/flutter?: No Anticoagulant at discharge?: No Reason anticoagulant not ordered: Treatment not Indicated Statins at discharge?: Yes Primary Dx Acute Ischemic CVA?: Yes IV tPA ordered during stay?: No Reason IV t-PA not ordered: Treatment not Indicated Inpatient E&M: [id number] Disch Hosp
== END 2020-07-17 17:00 | disposition skilled nursing facility (03) | DRG 480 ==
LOC: ED 11:09 → PCU 12:05
PROVIDERS: Orthopaedic Surgery; Admitting Provider Hospitalist; Emergency Provider Emergency Medicine; PCP Family Medicine; Visit Provider Internal Medicine
PROC: 0QS604Z Reposition Right Upper Femur with Internal Fixation Device, Open Approach (ICD-10-PCS; CPT 27245; principal; 2020-07-14 15:00)
DX: M80.051A Age-related osteoporosis with current pathological fracture, right femur, initial encounter for fracture (principal); I63.9 Cerebral infarction, unspecified; D62 Acute posthemorrhagic anemia; G81.91 Hemiplegia, unspecified affecting right dominant side; G93.40 Encephalopathy, unspecified; E78.5 Hyperlipidemia, unspecified; I10 Essential (primary) hypertension; E03.9 Hypothyroidism, unspecified; R29.705 NIHSS score 5; R47.81 Slurred speech; F32.9 Major depressive disorder, single episode, unspecified; F41.9 Anxiety disorder, unspecified; R29.810 Facial weakness; Z66 Do not resuscitate; F03.90 Unspecified dementia, unspecified severity, without behavioral disturbance, psychotic disturbance, mood disturbance, and anxiety; Z96.642 Presence of left artificial hip joint
CPT/HCPCS: 36415; 51702; 70450; 70496; 70498; 70551; 71045; 73502; 76000; 80048; 80061; 81001; 83036; 84484; 85014; 85018; 85025; 85027; 86850; 86900; 86901; 86920; 86922; 87086; 87088; 87426; 92507; 92523; 92526; 92610; 93005; 97110; 97163; 97166; 97530; 97535; 99251; 99285; C1713; C1776; J7040; J7120; P9016; Q9967; A4216; G0463; J2405

== ENCOUNTER → 2020-09-02 05:00 | Outpatient (REF) | payer MEDICARE, SELFPAY ==
[2020-07-14 15:02] VITALS: BMI 19.3
[2020-09-02 08:10] LABS: Hematocrit 39.4 % (37-47); Hemoglobin 12.6 g/dL (12.0-15.0); Mean Corpuscular Hgb 31.3 pg (27.0-32.0); Mean Platelet Vol. 10.5 fl (6.2-12.0); Platelet Count 184 K/mm3 (150-450); RBC Distribution Width CV 15.6 % (11.6-14.6); RBC Distribution Width SD 56.5 fl (35.1-43.9); Red Blood Count 4.02 M/mm3 (4.2-5.4); White Blood Count 4.1 K/mm3 (4.4-11.0)
[2020-09-02 08:27] LABS: Anion Gap 5 (5-15); BUN 20 mg/dL (7-18); BUN/Creat Ratio 43.9 RATIO (10-20); Calcium,Total 8.6 mg/dL (8.5-10.1); Chloride 108 mmol/L (98-107); Creatinine, Serum 0.46 mg/dL (0.55-1.02); EST Glomerular Filtration Rate 138 mL/min (>60); Est Glom Filt Rate - Afr Amer 167 mL/min (>60); Glucose 85 mg/dL (74-106); Potassium 3.8 mmol/L (3.5-5.1); Sodium Level 140 mmol/L (136-145)
== END ==
LOC: OLS.WHLTCC 05:00
PROVIDERS: PCP Family Medicine; Visit Provider Family Medicine
DX: I63.9 Cerebral infarction, unspecified (principal); K21.9 Gastro-esophageal reflux disease without esophagitis; K59.00 Constipation, unspecified; R29.6 Repeated falls; S72.001D Fracture of unspecified part of neck of right femur, subsequent encounter for closed fracture with routine healing
CPT/HCPCS: 36415; 80048; 85027

== ENCOUNTER 2020-09-29 06:50 | Emergency (ER) | payer MEDICARE, SELFPAY ==
[2020-07-14 15:02] VITALS: BMI 19.3
[2020-09-29 06:51] VITALS: BP 164/103; PULSE 62; RESP 16; TEMP 36.4; O2SAT 98; BMI 17.6
--- NOTE | 2020-09-29 06:55 | CT_ITS ---
STUDY: CT BRAIN WITHOUT CONTRAST REASON FOR EXAM: Female, 85 years old. TRAUMA. Unwitnessed fall. RADIATION DOSAGE (If Supplied By Facility): CTDIvol = ( 38.43 ) mGy, DLP = ( 698.28 ) mGycm TECHNIQUE: Transaxial CT imaging of the brain was performed without administration of intravenous contrast material. Individualized dose optimization techniques were used for this CT. COMPARISON: CT scan 07/17/2020. FINDINGS: Normal soft tissue structures. Normal calvarium. There is focal encephalomalacia in the mesial left occipital lobe, consistent with an old infarction. There is mild cerebral atrophy with widening of the extra-axial spaces and ventricular dilatation. There are areas of decreased attenuation within the white matter tracts of the supratentorial brain, consistent with microvascular disease changes. There are old lacunar infarctions of the thalami and there are prominent perivascular spaces and/or old lacunar infarctions in the basal ganglia. Normal brainstem. There is mild cerebellar atrophy. There is atherosclerotic calcification of the cavernous carotid arteries. There is no intracranial hemorrhage. There are no findings of an acute ischemic infarction. Normal visualized paranasal sinuses. CT/Brain/Head without Contrast IMPRESSION: Chronic involutional changes of the brain. Small, old left occipital lobe infarction. No demonstrated acute intracranial process. Electronically Signed: Nahum Jorge MD at 7:55 EDT , Service support ,
--- NOTE | 2020-09-29 06:55 | RAD_ITS ---
STUDY: X-RAY - RIGHT SHOULDER REASON FOR EXAM: Right shoulder injury from a fall. TECHNIQUE: 2 view(s) of the shoulder. COMPARISON: None. FINDINGS: There is arthrosis of the glenohumeral articulation with marginal osteophytes of the humeral head and joint space narrowing. Normal acromioclavicular joint. Normal acromion. There is a fracture of the surgical neck of the humerus with lateral displacement. There is soft tissue swelling. Normal visualized pulmonary apex. RAD/Shoulder min 2 Views IMPRESSION: Fracture of the surgical neck of the humerus. Glenohumeral arthrosis. Electronically Signed: Dell Vila MD at 7:59 EDT Tel , Service support ,
--- NOTE | 2020-09-29 06:55 | CT_ITS ---
STUDY: CT CERVICAL SPINE WITHOUT CONTRAST REASON FOR EXAM: Female, 85 years old. TRAUMA. History of fall. RADIATION DOSAGE (If Supplied By Facility): CTDIvol = ( 19.17 ) mGy, DLP = ( 431.14 ) mGycm TECHNIQUE: High resolution transaxial imaging was performed without contrast material. Sagittal and coronal images were reconstructed. Individualized dose optimization techniques were used for this CT. COMPARISON: None FINDINGS: Normal craniovertebral junction. There are degenerative changes of the anterior atlantoaxial articulation. Normal odontoid process. Normal cervical lordosis. Normal vertebral bodies and posterior osseous elements. C2-3: Mild degree of disc space narrowing. Minimal anterior listhesis of C2 on C3 due to the facet joint osteoarthritis and hypertrophy. Uncovertebral arthrosis. Mild degree of bilateral neural foraminal stenosis. C3-4: Minimal degree of anterior listhesis of C3 C3 on C4 due to the facet joint osteoarthritis and hypertrophy worse on the right side. Moderate degree of right neural foraminal stenosis. C4-5: Marked degree of disc space narrowing. Uncovertebral arthrosis. Spondylosis. Facet joint osteoarthritis. Mild degree of bilateral neural foraminal stenosis. C5-6: Marked degree of disc space narrowing. Mild anterior spondylosis. Uncovertebral arthrosis. Bilateral neural foraminal stenosis worse on the right side. C6-7: Moderate degree of disc space narrowing. Facet joint osteoarthritis and hypertrophy. Uncovertebral arthrosis. Bilateral neural foraminal stenosis worse on the right side. Dense atherosclerotic calcification of the carotid bifurcations bilaterally worse on the left. CT/Spine Cervical without Contras IMPRESSION: Multilevel degenerative changes, as described above. Electronically Signed: Gregory Sy MD at 8:20 EDT , Service support ,
--- NOTE | 2020-09-29 06:55 | RAD_ITS ---
STUDY: X-RAY - PELVIS REASON FOR EXAM: Female, 85 years old. TRAUMA TECHNIQUE: Two views of the pelvis were obtained. COMPARISON: 07/12/2020. FINDINGS: There is a non-specific bowel gas pattern. Normal visualized soft tissue structures. Normal bilateral iliac wings, sacroiliac joints and visualized sacrum. Normal visualized bilateral superior and inferior pubic rami. Normal pubic symphysis. Normal ischial tuberosities. There has been previous ORIF of a comminuted right intertrochanteric fracture with placement of intramedullary fixation cody and proximal sliding screw. Distal portion of the fixation hardware are not included in this study. Visualized portions of the hardware appear to be intact without evidence for loosening and the major fracture site has healed in adequate alignment. There is a large dystrophic soft tissue calcification projecting inferior to the hip joint, consistent with myositis ossificans. There is a left hip prosthesis. Femoral component is not fully included in this study. Visualized portions of the hardware appear to be intact without evidence for loosening. . RAD/Pelvis 1 or 2 Views IMPRESSION: No evidence for acute fracture or dislocation. Status post ORIF of the comminuted right intertrochanteric fracture. Incomplete demonstration of fixation hardware, which appears to be intact as seen. Fracture has healed in adequate alignment. Prominent dystrophic soft tissue calcifications in the region of the right hip. Visualized portions of left hip prosthesis appear to be intact. Electronically Signed: Nahum Jorge MD at 8:00 EDT , Service support ,
--- NOTE | 2020-09-29 07:12 | EX.ED.DYSGE1 ---
HPI History of Present Illness Chief Complaint: Fall Informant: patient, EMS and SNF Limited: dementia Narrative Narrative: 85-year-old female with a history of dementia and prior stroke with hemiplegia presents following a unwitnessed fall. Patient tells me that her right shoulder hurts. She denies any other pain.Patient does not know why she fell. [facility] Medical History Acute electrocardiogram changes Aphasia as late effect of cerebrovascular accident Carotid stenosis, left Depression Dysphagia as late effect of cerebrovascular accident (CVA) Hyperlipidemia Hypokalemia Hypothyroidism Memory deficit after cerebral infarction Stroke/cerebrovascular accident Home Medications levothyroxine 50 mcg PO DAILY 11/14/14 [History Last Taken 11/15/19] aspirin 81 mg PO DAILY@0800 tab.chew 07/17/20 [Rx Last Taken Unknown] atorvastatin 80 mg PO QHS tab 07/17/20 [Rx Last Taken Unknown] escitalopram oxalate 10 mg PO DAILY #1 tab 07/17/20 [Rx Last Taken Unknown] sennosides-docusate sodium 2 tab PO BID PRN PRN tab 07/17/20 [Rx Last Taken Unknown] hydrocodone-acetaminophen 1 tab PO Q6H PRN PRN 3 Days #12 tablet 09/29/20 [Rx Last Taken Unknown] pantoprazole 20 mg PO DAILY 09/29/20 [History Last Taken Unknown] Allergy/AdvReac Type Severity Reaction Status Date / Time gluten AdvReac Nausea Verified 09/29/20 07:02 Surgical History History of total hip arthroplasty Social History (Updated 09/29/20 @ 07:[address] Anthony Mccallum DO) Smoking Status: Smoker, status unknown alcohol intake: former substance use type: does not use ROS ROS ED Review of Systems ROS Unobtainable: due to mental status EXAM Physical Exam Const Vital Signs: 09/29/20 06:51 09/29/20 07:05 09/29/20 09:03 Temperature 97.5 F L Temperature Source Temporal Pulse Rate 62 74 Respiratory Rate 16 14 Respiratory Effort Normal Respiratory Depth Normal Respiratory Pattern Normal Blood Pressure 164/103 H 91/45 L Blood Pressure Mean 123 60 Pulse Ox 98 98 Oxygen Delivery Method Room Air Room Air Positive well nourished and well developed General Appearance ED: well developed HEENT Reports normocephalic, head/scalp atraumatic and moist mucous membranes Eyes PERRL and EOMs intact bilaterally Neck no lymphadenopathy, supple and no JVD Resp normal respiratory effort and clear to auscultation bilaterally Cardio regular rate, regular rhythm and no murmurs GI normal to inspection, nondistended, normoactive bowel sounds and non-tender Palpation: soft Back/Spine no CVA tenderness and normal ROM Extremity Extremity Narrative: Limited painful range of motion of the right shoulder. General Extremety ED: Negative for edema General Extremity: Negative for edema Neuro CN's II-XII intact bilaterally Neuro Narrative: Right leg weakness. Sensorium / Orientation: alert and orientation impaired Psych mental status grossly normal Mood & Affect: Negative for depressed or tearful Skin no rashes or lesions noted and no wounds MDM MDM MDM Narrative Medical decision making narrative: My interpretation of the plain films of the right shoulder and right pelvis is fracture at the surgical neck of the humerus with lateral displacement. Patient received pain medications. She is seen Dr. Mcginnis in the past. I spoke with Dr. Lee who is on-call for them. Patient was placed in a sling will need to follow-up with them. Nursing did discuss with the family. Radiography Diagnostic Testing: Radiology Impression Brain CT 09/29/20 06:55 IMPRESSION: Chronic involutional changes of the brain. Small, old left occipital lobe infarction. No demonstrated acute intracranial process. Electronically Signed: Nahum Jorge MD at 7:55 EDT , Service support , Cervical Spine CT 09/29/20 06:55 IMPRESSION: Multilevel degenerative changes, as described above. Electronically Signed: Gregory Sy MD at 8:20 EDT , Service support , Pelvis X-Ray 09/29/20 06:55 IMPRESSION: No evidence for acute fracture or dislocation. Status post ORIF of the comminuted right intertrochanteric fracture. Incomplete demonstration of fixation hardware, which appears to be intact as seen. Fracture has healed in adequate alignment. Prominent dystrophic soft tissue calcifications in the region of the right hip. Visualized portions of left hip prosthesis appear to be intact. Electronically Signed: Nahum Jorge MD at 8:00 EDT , Service support , Shoulder X-Ray 09/29/20 06:55 IMPRESSION: Fracture of the surgical neck of the humerus. Glenohumeral arthrosis. Electronically Signed: Dell Vila MD at 7:59 EDT Tel , Service support , Discharge Plan Triage Chief Complaint: Fall ED Provider: Anthony Mccallum Dx/Rx/DC Orders Clinical Impression: Closed right humeral fracture Instructions: ED Fracture, Upper Extremity Prescriptions: New hydrocodone-acetaminophen [hydrocodone-acetaminophen] 1 TABLET tablet 1 tab PO Q6H PRN PRN (Reason: Pain) 3 Days Qty: 12 RF: 0 No Action levothyroxine 50 MCG tablet 50 mcg PO DAILY RF: 0 atorvastatin 80 MG tablet 80 mg PO QHS RF: 0 sennosides-docusate sodium 1 TABLET tablet 2 tab PO BID PRN PRN (Reason: Constipation) RF: 0 aspirin 81 MG tablet,chewable 81 mg PO DAILY@0800 RF: 0 escitalopram oxalate 10 MG tablet 10 mg PO DAILY Qty: 1 RF: 0 pantoprazole 20 mg tablet,delayed release (DR/EC) 20 mg PO DAILY RF: 0 Primary Care Provider: Kaleb Craft Referrals: Kaleb Craft MD [Primary Care Provider] - Inder Mcginnis DO [STAFF PHYSICIAN] - As soon as possible Disposition Disposition: Assisted Living
[2020-09-29] MEDS: HYDROcodone Bitartrate/Apap 5/325 Tablet PO (08:20)
[2020-09-29 09:03] VITALS: BP 91/45; PULSE 74; RESP 14; O2SAT 98
--- NOTE | 2020-09-29 11:21 | NURSING ---
CALLED [facility], ETA IS 30 TO 40 MIN
[2020-09-29 12:01] VITALS: BP 132/86; BP 132/96; PULSE 63; RESP 16; O2SAT 97
== END 2020-09-29 12:13 | disposition home or self-care (01) ==
PROVIDERS: Emergency Provider Emergency Medicine; PCP Family Medicine
DX: S42.301A Unspecified fracture of shaft of humerus, right arm, initial encounter for closed fracture (principal); F03.90 Unspecified dementia, unspecified severity, without behavioral disturbance, psychotic disturbance, mood disturbance, and anxiety; E78.5 Hyperlipidemia, unspecified; E03.9 Hypothyroidism, unspecified; F32.9 Major depressive disorder, single episode, unspecified; W19.XXXA Unspecified fall, initial encounter; Z79.82 Long term (current) use of aspirin
CPT/HCPCS: 70450; 72125; 72170; 73030; 99285